=== PATIENT | female | born 1980 | race Caucasian/White ===

== ENCOUNTER 2017-07-27 02:07 | Emergency (ER) | payer BC ==
[2017-07-27 02:15] VITALS: TEMP 98.1
[2017-07-27] MEDS ORDERED: KETOROLAC 30 MG/ML 1 ML VIAL IVP STA (02:32)
[2017-07-27 02:42] LABS: Basophils # (A) 0.1 k/uL (0-0.2); Basophils % (A) 1 %; Eosinophils # (A) 0.2 k/uL (0-0.7); Eosinophils % (A) 2 %; HCT 42.8 % (34.0-46.0); HGB 15.2 gm/dL (11.4-16.0); Lymphocytes # (A) 2.6 k/uL (1.0-4.8); Lymphocytes % (A) 32 %; MCH 30.7 pg (25.0-35.0); MCHC 35.4 g/dL (31.0-37.0); MCV 86.7 fL (80.0-100.0); Mean Platelet Volume 6.7; Monocytes # (A) 0.5 k/uL (0-1.0); Monocytes % (A) 6 %; Neutrophils # (A) 4.6 k/uL (1.3-7.7); Neutrophils % (A) 56 %; Platelet Count 361 k/uL (150-450); RBC 4.94 m/uL (3.80-5.40); RDW 11.9 % (11.5-15.5); WBC 8.2 k/uL (3.8-10.6)
[2017-07-27 02:50] LABS: ALT 19 U/L (9-52); AST 26 U/L (14-36); Albumin 4.4 g/dL (3.5-5.0); Alkaline Phosphatase 84 U/L (38-126); Anion Gap 13 mmol/L; Blood Urea Nitrogen 14 mg/dL (7-17); Calcium 10.3 mg/dL (8.4-10.2); Carbon Dioxide 23 mmol/L (22-30); Chloride 104 mmol/L (98-107); Glucose 124 mg/dL (74-99); Magnesium 1.8 mg/dL (1.6-2.3); Potassium 3.9 mmol/L (3.5-5.1); Sodium 140 mmol/L (137-145); Total Bilirubin 0.4 mg/dL (0.2-1.3); Total Protein 7.6 g/dL (6.3-8.2)
--- NOTE | 2017-07-27 03:53 | XR ---
EXAM: XR Chest, 1 View CLINICAL HISTORY: ITS.REASON XR Reason: chest pain TECHNIQUE: Frontal view of the chest. COMPARISON: No relevant prior studies available. FINDINGS: Lungs: Unremarkable. No consolidation. Pleural space: Unremarkable. No pneumothorax. Heart: Unremarkable. No cardiomegaly. Mediastinum: Unremarkable. Bones/joints: Unremarkable. IMPRESSION: No lobar consolidation or pulmonary edema.
[2017-07-27] MEDS ORDERED: MAG HYDROX/AL HYDROX/SIMETH 30 ML, HYOSCYAMINE ELIXIR 10 ML, CIMETIDINE HCL 300 MG, LID... PO STA ×4 (04:01)
--- NOTE | 2017-07-27 06:50 | ED ---
Chest Pain HPI - General Chief Complaint: Chest Pain Stated Complaint: Chest Pain/ SOB Time Seen by Provider: 07/27/17 02:22 Source: patient, family Mode of arrival: ambulatory Limitations: no limitations - History of Present Illness MD Complaint: chest pain -: hour(s) Onset: during rest Pain Location: substernal Pain Radiation: back Severity: severe Quality: tightness, aching Consistency: constant Improves With: nothing Worsens With: nothing Context: other (Stress) Treatments Prior to Arrival: none - Related Data Home Medications Medication Instructions Recorded Confirmed No Known Home Medications [No 07/27/17 07/27/17 Known Home Medications] Allergies Allergy/AdvReac Type Severity Reaction Status Date / Time No Known Allergies Allergy Verified 07/27/17 02:14 Review of Systems ROS Statement: Those systems with pertinent positive or pertinent negative responses have been documented in the HPI. ROS Other: All systems not noted in ROS Statement are negative. Constitutional: Denies: fever, chills, weakness Respiratory: Denies: cough, dyspnea Cardiovascular: Reports: chest pain, palpitations. Denies: syncope Gastrointestinal: Denies: abdominal pain, vomiting, diarrhea Genitourinary: Denies: dysuria Musculoskeletal: Reports: as per HPI, back pain Skin: Denies: rash Neurological: Denies: headache, weakness, numbness Psychiatric: Reports: anxiety EKG Findings - EKG Results: EKG: interpreted by LEVI, sinus rhythm (Rate approximately 111 bpm), normal axis , normal QRS, normal ST/T EKG shows: tachycardia Past Medical History Past Medical History: No Reported History History of Any Multi-Drug Resistant Organisms: None Reported Past Surgical History: No Surgical Hx Reported Past Psychological History: No Psychological Hx Reported Smoking Status: Never smoker Past Alcohol Use History: None Reported Past Drug Use History: None Reported General Exam Limitations: no limitations General appearance: alert, anxious Head exam: Present: atraumatic, normocephalic Eye exam: Present: normal appearance. Absent: scleral icterus, conjunctival injection Respiratory exam: Present: normal lung sounds bilaterally. Absent: respiratory distress, wheezes, rales, rhonchi, stridor Cardiovascular Exam: Present: normal rhythm, tachycardia (Rate 108 at my exam), normal heart sounds. Absent: systolic murmur, diastolic murmur, rubs, gallop GI/Abdominal exam: Present: soft. Absent: distended, tenderness, guarding, rebound, mass Extremities exam: Present: normal inspection, normal capillary refill. Absent: pedal edema, calf tenderness Back exam: Present: normal inspection. Absent: CVA tenderness (R), CVA tenderness (L) Neurological exam: Present: alert Psychiatric exam: Present: anxious Skin exam: Present: warm, dry, intact, normal color. Absent: rash Course Vital Signs 07/27/17 07/27/17 07/27/17 02:10 03:34 04:40 Temperature 98.1 F Pulse Rate 122 H 84 86 Respiratory 20 16 16 Rate Blood Pressure 153/95 134/75 133/79 O2 Sat by Pulse 88 L 98 98 Oximetry 07/27/17 06:57 Temperature Pulse Rate 83 Respiratory 16 Rate Blood Pressure 131/80 O2 Sat by Pulse 98 Oximetry Disposition Clinical Impression: Chest pain Disposition: HOME SELF-CARE Condition: Good Instructions: Chest Pain (ED) Referrals: Dragan Boudreaux MD [Primary Care Provider] - 1-2 days
[2017-07-27 07:55] VITALS: BP 124/80; PULSE 87; RESP 18
== END 2017-07-27 07:54 | disposition home or self-care (01) ==
LOC: EC 02:07
DX: R07.89 Other chest pain (principal); F41.9 Anxiety disorder, unspecified; R00.0 Tachycardia, unspecified; F43.9 Reaction to severe stress, unspecified; M54.9 Dorsalgia, unspecified
CPT/HCPCS: 36415; 93005; 85379; 80053; 83735; 84484; 85025; 71045; 99285; 96374; J1885

== ENCOUNTER 2019-03-27 15:34 | Emergency (ER) | payer BC ==
[2019-03-27 15:42] VITALS: RESP 18
[2019-03-27] MEDS ORDERED: SODIUM CHLORIDE 0.9% 1,000 ML IV STA ×2 (15:47)
[2019-03-27] MEDS ORDERED: PANTOPRAZOLE 40 MG/10 ML VIAL IVP STA (15:47)
[2019-03-27] MEDS ORDERED: ONDANSETRON 4 MG/2 ML VIAL IVP STA (15:58)
[2019-03-27] MEDS ORDERED: HYDROmorphone 1 MG/ML 1 ML SYRINGE IVP STA (15:58)
[2019-03-27] MEDS ORDERED: KETOROLAC 30 MG/ML 1 ML VIAL IVP STA (16:01)
[2019-03-27 16:12] LABS: Basophils # (A) 0.1 k/uL (0-0.2); Basophils % (A) 1 %; Eosinophils # (A) 0.2 k/uL (0-0.7); Eosinophils % (A) 2 %; HCT 39.8 % (34.0-46.0); HGB 13.6 gm/dL (11.4-16.0); Lymphocytes # (A) 1.6 k/uL (1.0-4.8); Lymphocytes % (A) 20 %; MCH 30.3 pg (25.0-35.0); MCHC 34.2 g/dL (31.0-37.0); MCV 88.5 fL (80.0-100.0); Mean Platelet Volume 6.1; Monocytes # (A) 0.4 k/uL (0-1.0); Monocytes % (A) 5 %; Neutrophils # (A) 5.2 k/uL (1.3-7.7); Neutrophils % (A) 68 %; Platelet Count 465 k/uL (150-450); RBC 4.49 m/uL (3.80-5.40); RDW 11.8 % (11.5-15.5); WBC 7.7 k/uL (3.8-10.6)
--- NOTE | 2019-03-27 16:18 | ED ---
Abdominal Pain HPI - General Chief Complaint: Abdominal Pain Stated Complaint: Flank pain Time Seen by Provider: 03/27/19 15:47 Source: patient, RN notes reviewed, old records reviewed Mode of arrival: ambulatory Limitations: no limitations - History of Present Illness Initial Comments: This patient's a 38-year-old female. She presents today for evaluation for concern for flank pain. Patient reports the symptoms started sharp pain, and it happened 3 times today. She states it seems to be in her right flank and right upper abdomen. Patient denies any fevers or chills. She denies any changes in urination or bowel habits. Patient states the pain seemed to occur 2 Hours after eating. states she had an episode of pain like this a year ago but was told at that time is gastritis. - Related Data Home Medications Medication Instructions Recorded Confirmed No Known Home Medications 07/27/17 07/27/17 Allergies Allergy/AdvReac Type Severity Reaction Status Date / Time No Known Allergies Allergy Verified 03/27/19 15:38 Review of Systems ROS Statement: Those systems with pertinent positive or pertinent negative responses have been documented in the HPI. ROS Other: All systems not noted in ROS Statement are negative. Past Medical History Past Medical History: No Reported History Additional Past Medical History / Comment(s): gastritis, ovarian cysts History of Any Multi-Drug Resistant Organisms: None Reported Past Surgical History: No Surgical Hx Reported Additional Past Surgical History / Comment(s): EGD, uterine wall and ovarian cyst removal Past Psychological History: No Psychological Hx Reported Smoking Status: Never smoker Past Alcohol Use History: Occasional Past Drug Use History: None Reported General Exam - General Exam Comments Initial Comments: 38-year-old female. No significant distress. Limitations: no limitations General appearance: alert, in no apparent distress Head exam: Present: atraumatic, normocephalic, normal inspection Eye exam: Present: normal appearance, PERRL, EOMI. Absent: scleral icterus, conjunctival injection, periorbital swelling ENT exam: Present: normal exam, mucous membranes moist Neck exam: Present: normal inspection. Absent: tenderness, meningismus, lymphadenopathy Respiratory exam: Present: normal lung sounds bilaterally Cardiovascular Exam: Present: regular rate, normal rhythm, normal heart sounds. Absent: systolic murmur, diastolic murmur, rubs, gallop, clicks GI/Abdominal exam: Present: soft, tenderness (right upper quadrant tenderness), normal bowel sounds. Absent: distended, guarding, rebound, rigid Extremities exam: Present: normal inspection Back exam: Present: normal inspection Neurological exam: Present: alert, oriented X3, CN II-XII intact Psychiatric exam: Present: normal affect, normal mood Skin exam: Present: warm, dry, intact, normal color. Absent: rash Course Vital Signs 03/27/19 15:38 Temperature 97.4 F L Pulse Rate 90 Respiratory 18 Rate Blood Pressure 149/86 O2 Sat by Pulse 100 Oximetry - Reevaluation(s) Reevaluation #1: 03/27/19 17:40 is reevaluated and resting comfortably in bed. States her pain is diminishing. Medical Decision Making - Medical Decision Making 38-year-old female presents today for 3 episodes of sharp right upper quadrant abdominal pain with radiation towards her back. Patient was started on IV fluids labwork obtained. She is given Toradol and Zofran. Patient ran reevaluation she is resting comfortably in bed. Lab work was reviewed. There is a mildly elevated liver enzymes of an AST of 56 and ALT of 90. Bilirubin is within normal limits. Urinalysis shows no blood or signs of infection. Ultrasound of the gallbladder was completed and does show multiple stones, within the gallbladder and neck. No signs of dilated ducts or sonographic M urphy sign. Her white blood cell count is within normal limits and vital signs are stable. I discussed with the concern for patient's pain is related to biliary colic and she may have passed, bladder stones. I discussed that this could turn into infected gallbladder cholecystitis or choledocholithiasis. Patient on reevaluation states she is feeling better. She is concerned because she has an upcoming vacation in one week and wants to have this taken care of before then. Discussed that Patient can follow-up with her primary care doctor or return to emergency department she has any worsening pain that at that time Patient may need to have her gallbladder removed. Patient is agreeable to this plan and but close follow-up with primary care doctor and surgeon. - Lab Data Result diagrams: 03/27/19 15:54 03/27/19 15:54 Lab Results 03/27/19 03/27/19 03/27/19 Range/Units 15:54 15:54 15:54 WBC 7.7 (3.8-10.6) k/uL RBC 4.49 (3.80-5.40) m/uL Hgb 13.6 (11.4-16.0) gm/dL Hct 39.8 (34.0-46.0) % MCV 88.5 (80.0-100.0) fL MCH 30.3 (25.0-35.0) pg MCHC 34.2 (31.0-37.0) g/dL RDW 11.8 (11.5-15.5) % Plt Count 465 H (150-450) k/uL Neutrophils % 68 % Lymphocytes % 20 % Monocytes % 5 % Eosinophils % 2 % Basophils % 1 % Neutrophils # 5.2 (1.3-7.7) k/uL Lymphocytes # 1.6 (1.0-4.8) k/uL Monocytes # 0.4 (0-1.0) k/uL Eosinophils # 0.2 (0-0.7) k/uL Basophils # 0.1 (0-0.2) k/uL PT (9.0-12.0) sec INR (<1.2) APTT (22.0-30.0) sec Sodium 137 (137-145) mmol/L Potassium 4.1 (3.5-5.1) mmol/L Chloride 103 (98-107) mmol/L Carbon Dioxide 26 (22-30) mmol/L Anion Gap 8 mmol/L BUN 14 (7-17) mg/dL Creatinine 0.62 (0.52-1.04) mg/dL Est GFR (CKD-EPI)AfAm >90 (>60 ml/min/1.73 sqM) Est GFR (CKD-EPI)NonAf >90 (>60 ml/min/1.73 sqM) Glucose 116 H (74-99) mg/dL Plasma Lactic Acid Richard 1.3 (0.7-2.0) mmol/L Calcium 9.4 (8.4-10.2) mg/dL Total Bilirubin 0.5 (0.2-1.3) mg/dL AST 56 H (14-36) U/L ALT 93 H (9-52) U/L Alkaline Phosphatase 102 (38-126) U/L Total Protein 7.8 (6.3-8.2) g/dL Albumin 4.3 (3.5-5.0) g/dL Amylase 47 (30-110) U/L Lipase 154 (23-300) U/L Urine Color Urine Appearance (Clear) Urine pH (5.0-8.0) Ur Specific [place] (1.001-1.035) Urine Protein (Negative) Urine Glucose (UA) (Negative) Urine Ketones (Negative) Urine Blood (Negative) Urine Nitrite (Negative) Urine Bilirubin (Negative) Urine Urobilinogen (<2.0) mg/dL Ur Leukocyte Esterase (Negative) Urine RBC (0-5) /hpf Urine WBC (0-5) /hpf Ur Squamous Epith Cells (0-4) /hpf Urine Mucus (None) /hpf Urine HCG, Qual (Not Detectd) 03/27/19 03/27/19 03/27/19 Range/Units 15:54 15:54 15:54 WBC (3.8-10.6) k/uL RBC (3.80-5.40) m/uL Hgb (11.4-16.0) gm/dL Hct (34.0-46.0) % MCV (80.0-100.0) fL MCH (25.0-35.0) pg MCHC (31.0-37.0) g/dL RDW (11.5-15.5) % Plt Count (150-450) k/uL Neutrophils % % Lymphocytes % % Monocytes % % Eosinophils % % Basophils % % Neutrophils # (1.3-7.7) k/uL Lymphocytes # (1.0-4.8) k/uL Monocytes # (0-1.0) k/uL Eosinophils # (0-0.7) k/uL Basophils # (0-0.2) k/uL PT 10.3 (9.0-12.0) sec INR 1.0 (<1.2) APTT 24.5 (22.0-30.0) sec Sodium (137-145) mmol/L Potassium (3.5-5.1) mmol/L Chloride (98-107) mmol/L Carbon Dioxide (22-30) mmol/L Anion Gap mmol/L BUN (7-17) mg/dL Creatinine (0.52-1.04) mg/dL Est GFR (CKD-EPI)AfAm (>60 ml/min/1.73 sqM) Est GFR (CKD-EPI)NonAf (>60 ml/min/1.73 sqM) Glucose (74-99) mg/dL Plasma Lactic Acid Richard (0.7-2.0) mmol/L Calcium (8.4-10.2) mg/dL Total Bilirubin (0.2-1.3) mg/dL AST (14-36) U/L ALT (9-52) U/L Alkaline Phosphatase (38-126) U/L Total Protein (6.3-8.2) g/dL Albumin (3.5-5.0) g/dL Amylase (30-110) U/L Lipase (23-300) U/L Urine Color Yellow Urine Appearance Cloudy H (Clear) Urine pH 8.5 H (5.0-8.0) Ur Specific [place] 1.020 (1.001-1.035) Urine Protein Trace H (Negative) Urine Glucose (UA) Negative (Negative) Urine Ketones 1+ H (Negative) Urine Blood Negative (Negative) Urine Nitrite Negative (Negative) Urine Bilirubin Negative (Negative) Urine Urobilinogen 3.0 (<2.0) mg/dL Ur Leukocyte Esterase Negative (Negative) Urine RBC 1 (0-5) /hpf Urine WBC 6 H (0-5) /hpf Ur Squamous Epith Cells 5 H (0-4) /hpf Urine Mucus Rare H (None) /hpf Urine HCG, Qual Not Detected (Not Detectd) 03/27/19 16:19 EKG shows normal sinus rhythm with sinus arrhythmia, otherwise normal EKG noted. Ventricular rate of 76 bpm. Intervals 118 ms. QRS duration is 80 ms. QT QTc is 398/447 ms. - Radiology Data Radiology results: report reviewed Multiple gallstones, no dilated ducts. No focal liver defect. No evidence of renal obstruction. Gallbladder wall is 0.3 cm. Common bile duct is 0.3 cm. No signs of sonographic Parker sign. Ultrasound shows multiple gallstones. No dilated ducts. No focal liver defect. No evidence of renal obstruction. Her gallbladder ultrasound does show full of gallstones dropped the gallbladder and in the neck. ABG shows nonobstructive bowel gas pattern. Disposition Clinical Impression: Gallstones, Biliary colic Disposition: HOME SELF-CARE Condition: Good Instructions (If sedation given, give patient instructions): Biliary Colic (ED) Additional Instructions: Patient is advised to probably to return to the emergency department if there is any further worsening pain or fevers. Patient should follow up promptly with primary care doctor next week for rechecking of liver enzymes and also following up with surgeon for possible cholecystectomy in the future. If there is any questions about returning pain do not hesitate to return again to the emergency room. Is patient prescribed a controlled substance at d/c from ED?: No Referrals: Dragan Boudreaux MD [Primary Care Provider] - 1-2 days Onel Leigh MD [STAFF PHYSICIAN] - 1-2 days Moni Nichols MD [STAFF PHYSICIAN] - 1-2 days Madhu King MD [Medical Doctor] - 1-2 days Time of Disposition: 17:43
[2019-03-27 16:19] LABS: Appearance,Urine Cloudy (Clear); Bilirubin,Urine Negative (Negative); Blood,Urine Negative (Negative); Color,Urine Yellow; Glucose,Urine (UA) Negative (Negative); Ketones,Urine 1+ (Negative); Leukocyte Esterase,Urine Negative (Negative); Mucus,Urine Rare /hpf; Nitrite,Urine Negative (Negative); PH, Urine 8.5 (5.0-8.0); Protein,Urine Trace (Negative); RBC,Urine 1 /hpf (0-5); Squamous Epithelial Cell,Urine 5 /hpf (0-4)
[2019-03-27 16:20] LABS: ALT 93 U/L (9-52); AST 56 U/L (14-36); African American GFR (CKD) >90 (>60 ml/min/1.73 sqM); Albumin 4.3 g/dL (3.5-5.0); Alkaline Phosphatase 102 U/L (38-126); Amylase 47 U/L (30-110); Anion Gap 8 mmol/L; Blood Urea Nitrogen 14 mg/dL (7-17); Calcium 9.4 mg/dL (8.4-10.2); Carbon Dioxide 26 mmol/L (22-30); Chloride 103 mmol/L (98-107); Glucose 116 mg/dL (74-99); Partial Thromboplastin Time 24.5 sec (22.0-30.0); Potassium 4.1 mmol/L (3.5-5.1); Prothrombin Time 10.3 sec (9.0-12.0); Sodium 137 mmol/L (137-145); Total Bilirubin 0.5 mg/dL (0.2-1.3); Total Protein 7.8 g/dL (6.3-8.2)
--- NOTE | 2019-03-27 17:10 | US ---
EXAMINATION TYPE: US gallbladder DATE OF EXAM: 03/27/2019 COMPARISON: NONE CLINICAL HISTORY: RUQ pain. Episodes of RUQ and back pain ; ate potato chips at 12:30; prior history of gastritis EXAM MEASUREMENTS: Liver Length: 14.4 cm Gallbladder Wall: 0.3 cm CBD: 0.3 cm Right Kidney: 10.8 x 5.1 x 4.5 cm Pancreas: hyperechoic but homogeneous Liver: wnl Gallbladder: full of shadowing gallstones throughout gallbladder and in neck. Evidence for sonographic Parker's sign: no CBD: wnl Right Kidney: wnl IMPRESSION: Multiple gallstones. No dilated ducts. No focal liver defect. No evidence of renal obstru ction.
--- NOTE | 2019-03-27 17:29 | XR ---
EXAMINATION TYPE: XR KUB DATE OF EXAM: 03/27/2019 COMPARISON: NONE HISTORY: Severe right upper quadrant pain TECHNIQUE: 2 views upright FINDINGS: There is no sign of intestinal obstruction or pneumoperitoneum. Fecal pattern is normal. Th ere is no sign of a mass. There are no pathologic calcifications over the kidneys. IMPRESSION: Nonacute abdomen.
[2019-03-27 18:06] VITALS: BP 135/80; PULSE 72; TEMP 98.1
== END 2019-03-27 18:03 | disposition home or self-care (01) ==
LOC: EC 15:34
DX: K80.70 Calculus of gallbladder and bile duct without cholecystitis without obstruction (principal); R74.0 Nonspecific elevation of levels of transaminase and lactic acid dehydrogenase [LDH]; Z53.8 Procedure and treatment not carried out for other reasons
CPT/HCPCS: 36415; 93005; 80053; 82150; 83605; 83690; 85025; 85610; 85730; 81001; 81025; 74018; 76705; 99285; 96374; 96375 ×2; 96361 ×2; J2405; J1885; C9113

== ENCOUNTER 2019-04-19 18:27 | Observation (INO) | payer BC ==
[2019-04-19] MEDS ORDERED: KETOROLAC 30 MG/ML 1 ML VIAL IVP STA (18:53)
[2019-04-19] MEDS ORDERED: ONDANSETRON 4 MG/2 ML VIAL IVP STA (18:53)
[2019-04-19] MEDS ORDERED: SODIUM CHLORIDE 0.9% 2,000 ML IV STA (18:53)
[2019-04-19 19:22] LABS: Basophils # (A) 0.1 k/uL (0-0.2); Basophils % (A) 1 %; Eosinophils # (A) 0.2 k/uL (0-0.7); Eosinophils % (A) 3 %; HCT 41.1 % (34.0-46.0); HGB 13.9 gm/dL (11.4-16.0); Lymphocytes # (A) 2.5 k/uL (1.0-4.8); Lymphocytes % (A) 26 %; MCH 30.1 pg (25.0-35.0); MCHC 33.7 g/dL (31.0-37.0); MCV 89.3 fL (80.0-100.0); Mean Platelet Volume 7.7; Monocytes # (A) 0.4 k/uL (0-1.0); Monocytes % (A) 4 %; Neutrophils # (A) 6.1 k/uL (1.3-7.7); Neutrophils % (A) 64 %; Platelet Count 376 k/uL (150-450); RDW 12.5 % (11.5-15.5); WBC 9.6 k/uL (3.8-10.6)
[2019-04-19 19:31] LABS: Appearance,Urine Clear (Clear); Bilirubin,Urine Negative (Negative); Blood,Urine Negative (Negative); Color,Urine Light Yellow; Glucose,Urine (UA) Negative (Negative); Ketones,Urine 1+ (Negative); Leukocyte Esterase,Urine Negative (Negative); Nitrite,Urine Negative (Negative); Protein,Urine Negative (Negative); Specific Gravity,Urine 1.009 (1.001-1.035); Urobilinogen,Urine <2.0 mg/dL (<2.0)
--- NOTE | 2019-04-19 19:31 | ED ---
Abdominal Pain HPI - General Source: patient, RN notes reviewed Mode of arrival: ambulatory Limitations: no limitations <Tristin Lindsay - Last Filed: 04/19/19 21:40> <Candice Quintero - Last Filed: 04/19/19 23:19> - General Chief Complaint: Abdominal Pain Stated Complaint: RUQ Abd pain, Back pain Time Seen by Provider: 04/19/19 18:44 - History of Present Illness Initial Comments: 38-year-old female presents emergency Department with chief complaint of right upper quadrant abdominal pain. Patient states that she has known gallstones is scheduled for surgery with Dr. Lutz on May 15. Patient states that she started on some discomfort earlier today states that had worsened and now is located in her right flank right upper quadrant consistent with her gallbladder attacks. Patient states that she did drink some wine ate some turkey earlier today. She states that she has been low-fat diet trying to keep her symptoms under control. Patient states at this point the pain is unbearable. Patient d enies any fevers or chills nausea and no vomiting, diarrhea constipation she did admit that she had a light colored stool today. (Tristin Lindsay) - Related Data Home Medications Medication Instructions Recorded Confirmed No Known Home Medications 07/27/17 04/19/19 Allergies Allergy/AdvReac Type Severity Reaction Status Date / Time No Known Allergies Allergy Verified 04/19/19 18:39 Review of Systems ROS Other: All systems not noted in ROS Statement are negative. <Tristin Lindsay - Last Filed: 04/19/19 21:40> ROS Other: All systems not noted in ROS Statement are negative. <Candice Quintero - Last Filed: 04/19/19 23:19> ROS Statement: Those systems with pertinent positive or pertinent negative responses have been documented in the HPI. Past Medical History Past Medical History: No Reported History Additional Past Medical History / Comment(s): gastritis, ovarian cysts History of Any Multi-Drug Resistant Organisms: None Reported Past Surgical History: No Surgical Hx Reported Additional Past Surgical History / Comment(s): EGD, uterine wall and ovarian cyst removal Past Psychological History: No Psychological Hx Reported Smoking Status: Never smoker Past Alcohol Use History: Occasional Past Drug Use History: None Reported <Tristin Lindsay - Last Filed: 04/19/19 21:40> - Past Family History Mother Additional Family Medical History / Comment(s): TIAs Father Family Medical History: No Reported History <Candice Quintero - Last Filed: 04/19/19 23:19> General Exam Limitations: no limitations General appearance: alert, in no apparent distress Head exam: Present: atraumatic, normocephalic, normal inspection Neck exam: Present: normal inspection, full ROM. Absent: tenderness, meningismus, lymphadenopathy Respiratory exam: Present: normal lung sounds bilaterally. Absent: respiratory distress, wheezes, rales, rhonchi, stridor Cardiovascular Exam: Present: regular rate, normal rhythm, normal heart sounds. Absent: systolic murmur, diastolic murmur, rubs, gallop, clicks GI/Abdominal exam: Present: soft, tenderness (Moderate right upper quadrant), normal bowel sounds. Absent: distended, guarding, rebound, rigid Back exam: Present: CVA tenderness (R). Absent: CVA tenderness (L) Neurological exam: Present: alert, oriented X3, CN II-XII intact Skin exam: Present: warm, dry, intact, normal color. Absent: rash <Tristin Lindsay - Last Filed: 04/19/19 21:40> Course Vital Signs 04/19/19 04/19/19 18:40 21:38 Temperature 98 F Pulse Rate 93 84 Respiratory 18 18 Rate Blood Pressure 119/81 120/79 O2 Sat by Pulse 96 98 Oximetry Medical Decision Making - Lab Data Result diagrams: 04/19/19 19:00 04/19/19 19:00 <Tristin Lindsay - Last Filed: 04/19/19 21:40> - Lab Data Result diagrams: 04/19/19 19:00 04/19/19 19:00 <Candice Quintero - Last Filed: 04/19/19 23:19> - Medical Decision Making Patient had persistent pain. Patient will be admitted to Dr. Nichols. Labs unremarkable at this time. (Tristin Lindsay) I personally saw and evaluated the patient, patient with persistent RUQ abdominal pain despite 2 doses of Dilaudid. Patient care was discussed with Dr. Nichols who accepts the admission to her service. Admission orders were placed. (Candice Qunitero) - Lab Data Lab Results 04/19/19 04/19/19 04/19/19 Range/Units 19:00 19:00 19:00 WBC 9.6 (3.8-10.6) k/uL RBC 4.60 (3.80-5.40) m/uL Hgb 13.9 (11.4-16.0) gm/dL Hct 41.1 (34.0-46.0) % MCV 89.3 (80.0-100.0) fL MCH 30.1 (25.0-35.0) pg MCHC 33.7 (31.0-37.0) g/dL RDW 12.5 (11.5-15.5) % Plt Count 376 (150-450) k/uL Neutrophils % 64 % Lymphocytes % 26 % Monocytes % 4 % Eosinophils % 3 % Basophils % 1 % Neutrophils # 6.1 (1.3-7.7) k/uL Lymphocytes # 2.5 (1.0-4.8) k/uL Monocytes # 0.4 (0-1.0) k/uL Eosinophils # 0.2 (0-0.7) k/uL Basophils # 0.1 (0-0.2) k/uL Sodium 142 (137-145) mmol/L Potassium 4.0 (3.5-5.1) mmol/L Chloride 108 H (98-107) mmol/L Carbon Dioxide 22 (22-30) mmol/L Anion Gap 12 mmol/L BUN 15 (7-17) mg/dL Creatinine 0.97 (0.52-1.04) mg/dL Est GFR (CKD-EPI)AfAm 87 (>60 ml/min/1.73 sqM) Est GFR (CKD-EPI)NonAf 75 (>60 ml/min/1.73 sqM) Glucose 84 (74-99) mg/dL Calcium 10.1 (8.4-10.2) mg/dL Total Bilirubin 0.4 (0.2-1.3) mg/dL AST 24 (14-36) U/L ALT 29 (9-52) U/L Alkaline Phosphatase 77 (38-126) U/L Total Protein 7.9 (6.3-8.2) g/dL Albumin 4.6 (3.5-5.0) g/dL Amylase 58 (30-110) U/L Lipase 156 (23-300) U/L Urine Color Light Yellow Urine Appearance Clear (Clear) Urine pH 8.0 (5.0-8.0) Ur Specific [place] 1.009 (1.001-1.035) Urine Protein Negative (Negative) Urine Glucose (UA) Negative (Negative) Urine Ketones 1+ H (Negative) Urine Blood Negative (Negative) Urine Nitrite Negative (Negative) Urine Bilirubin Negative (Negative) Urine Urobilinogen <2.0 (<2.0) mg/dL Ur Leukocyte Esterase Negative (Negative) Urine HCG, Qual (Not Detectd) 04/19/19 Range/Units 19:00 WBC (3.8-10.6) k/uL RBC (3.80-5.40) m/uL Hgb (11.4-16.0) gm/dL Hct (34.0-46.0) % MCV (80.0-100.0) fL MCH (25.0-35.0) pg MCHC (31.0-37.0) g/dL RDW (11.5-15.5) % Plt Count (150-450) k/uL Neutrophils % % Lymphocytes % % Monocytes % % Eosinophils % % Basophils % % Neutrophils # (1.3-7.7) k/uL Lymphocytes # (1.0-4.8) k/uL Monocytes # (0-1.0) k/uL Eosinophils # (0-0.7) k/uL Basophils # (0-0.2) k/uL Sodium (137-145) mmol/L Potassium (3.5-5.1) mmol/L Chloride (98-107) mmol/L Carbon Dioxide (22-30) mmol/L Anion Gap mmol/L BUN (7-17) mg/dL Creatinine (0.52-1.04) mg/dL Est GFR (CKD-EPI)AfAm (>60 ml/min/1.73 sqM) Est GFR (CKD-EPI)NonAf (>60 ml/min/1.73 sqM) Glucose (74-99) mg/dL Calcium (8.4-10.2) mg/dL Total Bilirubin (0.2-1.3) mg/dL AST (14-36) U/L ALT (9-52) U/L Alkaline Phosphatase (38-126) U/L Total Protein (6.3-8.2) g/dL Albumin (3.5-5.0) g/dL Amylase (30-110) U/L Lipase (23-300) U/L Urine Color Urine Appearance (Clear) Urine pH (5.0-8.0) Ur Specific [place] (1.001-1.035) Urine Protein (Negative) Urine Glucose (UA) (Negative) Urine Ketones (Negative) Urine Blood (Negative) Urine Nitrite (Negative) Urine Bilirubin (Negative) Urine Urobilinogen (<2.0) mg/dL Ur Leukocyte Esterase (Negative) Urine HCG, Qual Not Detected (Not Detectd) Disposition <Tristin Lindsay M - Last Filed: 04/19/19 21:40> Is patient prescribed a controlled substance at d/c from ED?: No <Candice Quintero - Last Filed: 04/19/19 23:19> Clinical Impression: Biliary colic, Gallstones, Intractable abdominal pain Disposition: ADMITTED IP TO THIS [facility] Condition: Fair
[2019-04-19 19:33] LABS: Albumin 4.6 g/dL (3.5-5.0); Calcium 10.1 mg/dL (8.4-10.2); Total Bilirubin 0.4 mg/dL (0.2-1.3); Total Protein 7.9 g/dL (6.3-8.2)
[2019-04-19] MEDS ORDERED: diphenhydrAMINE 50 MG/ML 1 ML VIAL IVP STA (19:49)
[2019-04-19] MEDS ORDERED: METOCLOPRAMIDE 5 MG/ML 2 ML VIAL IVP STA (19:49)
[2019-04-19] MEDS ORDERED: HYDROmorphone 0.5 MG/0.5 ML SYRINGE IVP STA ×2 (19:49→21:39)
[2019-04-19] MEDS ORDERED: MORPHINE SULFATE 4 MG/ML SYRINGE IV PRN (21:34)
[2019-04-19] MEDS ORDERED: NALOXONE 0.4 MG/ML 1 ML VIAL IV PRN (21:34)
[2019-04-19] MEDS ORDERED: ONDANSETRON 4 MG/2 ML VIAL IVP PRN (21:34)
[2019-04-19] MEDS ORDERED: ACETAMINOPHEN TAB 325 MG TAB PO PRN (21:35)
[2019-04-19] MEDS ORDERED: ACETAMINOPHEN IV (For NPO) 1,000 MG in EMPTY BAG 1 BAG IVPB ONE (21:35)
[2019-04-19] MEDS: D5-0.45% NACL WITH KCL 20MEQ/L 1,000 ML IV SCH (22:42)
[2019-04-20] MEDS: SODIUM CHLORIDE 0.9% 1,000 ML IV SCH ×2 (00:11→23:04)
[2019-04-20] MEDS: HYDROmorphone 0.5 MG/0.5 ML SYRINGE IVP PRN ×3 (06:18→12:02)
[2019-04-20] MEDS: D5-0.45% NACL WITH KCL 20MEQ/L 1,000 ML IV SCH (07:28)
[2019-04-20] MEDS: ENOXAPARIN 30 MG/0.3 ML SYRINGE SQ SCH (09:02)
--- NOTE | 2019-04-20 11:34 | P.GSHP ---
History of Present Illness H&P Date: 04/20/19 CHIEF COMPLAINT: Cholecystitis HISTORY OF PRESENT ILLNESS: The patient is a 38-year-old female who presents with known history of gallstones. In fact, she reports yesterday having a egg white omelette and then had severe right upper back including abdominal pain. As a result of the persistent severity of the pain, she presents with cholecystitis intermission. PAST MEDICAL HISTORY: Please see list PAST SURGICAL HISTORY: Please see list MEDICATIONS: Please see list ALLERGIES: Please see list SOCIAL HISTORY: Please see list FAMILY HISTORY: Pertinent for gallbladder disease REVIEW OF ORGAN SYSTEMS: CONSTITUTIONAL: No reports of fevers or chills. HEENT: Denies any troubles with the vision or hearing. ENDOCRINE: No reports of hypothyroidism. No diabetes. RESPIRATORY: No recent pneumonias. CARDIOVASCULAR: Denies chest pain or palpitations GI: History of gastritis. History of choledocholithiasis MUSCULOSKELETAL: Has occasional joint pain including back pain. NEURO: No seizure disorders or headaches. No recent stroke. PSYCH: No depression or suicidal ideation. GENITOURINARY: No active blood in urine. No urinary hesitancy. HEMATOLOGIC: No personal or family history of DVTs or pulmonary emboli. SKIN: No skin cancer. PHYSICAL EXAM: VITAL SIGNS: Afebrile vital signs stable GENERAL: Well-developed pleasant in no acute distress. HEENT: No scleral icterus. Extraocular movements grossly intact. Moist buccal mucosa. NECK: Supple without lymphadenopathy. CHEST: Unlabored respirations. Equal bilateral excursions. CARDIOVASCULAR: Regular rate regular rhythm rhythm. Distal 2+ pulses. ABDOMEN: Soft, nondistended. Tender along the epigastrium and right upper quadrant. MUSCULOSKELETAL: No clubbing, cyanosis, or edema. NEURO: Cranial nerves II to XII within normal limits. No focal or lateralizing signs. PSYCH: Alert and oriented to person, place and time. SKIN: Well-perfused good skin turgor. ASSESSMENT: 1. Epigastric and right upper quadrant abdominal pain 2. Chronic cholecystitis 3. Symptomatic gallstones. 4. History of choledocholithiasis PLAN: 1. Will need a robotic cholecystectomy possible open. Benefits and risks were described. 2. Heparin for DVT prophylaxis 5000 units. 3. Antibiotic prophylaxis. Past Medical History Past Medical History: No Reported History Additional Past Medical History / Comment(s): gastritis, ovarian cysts History of Any Multi-Drug Resistant Organisms: None Reported Past Surgical History: No Surgical Hx Reported Additional Past Surgical History / Comment(s): EGD, uterine wall and ovarian cyst removal Past Anesthesia/Blood Transfusion Reactions: No Reported Reaction Past Psychological History: No Psychological Hx Reported Smoking Status: Never smoker Past Alcohol Use History: Occasional Past Drug Use History: None Reported - Past Family History Mother Additional Family Medical History / Comment(s): TIAs Father Family Medical History: No Reported History Medications and Allergies Home Medications Medication Instructions Recorded Confirmed Type Lo Loestrin Fe 1-10 1 tab PO DAILY 04/20/19 04/20/19 History Allergies Allergy/AdvReac Type Severity Reaction Status Date / Time No Known Allergies Allergy Verified 04/20/19 08:58 Surgical - Exam Vital Signs Temp Pulse Resp BP Pulse Ox 98 F 93 18 119/81 96 04/19/19 18:40 04/19/19 18:40 04/19/19 18:40 04/19/19 18:40 04/19/19 18:40 Results - Labs 04/19/19 19:00 04/19/19 19:00 Abnormal Lab Results - Last 24 Hours (Table) 04/19/19 04/19/19 Range/Units 19:00 19:00 Chloride 108 H (98-107) mmol/L Urine Ketones 1+ H (Negative) Diabetes panel 04/19/19 Range/Units 19:00 Sodium 142 (137-145) mmol/L Potassium 4.0 (3.5-5.1) mmol/L Chloride 108 H (98-107) mmol/L Carbon Dioxide 22 (22-30) mmol/L BUN 15 (7-17) mg/dL Creatinine 0.97 (0.52-1.04) mg/dL Glucose 84 (74-99) mg/dL Calcium 10.1 (8.4-10.2) mg/dL AST 24 (14-36) U/L ALT 29 (9-52) U/L Alkaline Phosphatase 77 (38-126) U/L Total Protein 7.9 (6.3-8.2) g/dL Albumin 4.6 (3.5-5.0) g/dL Calcium panel 04/19/19 Range/Units 19:00 Calcium 10.1 (8.4-10.2) mg/dL Albumin 4.6 (3.5-5.0) g/dL Pituitary panel 04/19/19 Range/Units 19:00 Sodium 142 (137-145) mmol/L Potassium 4.0 (3.5-5.1) mmol/L Chloride 108 H (98-107) mmol/L Carbon Dioxide 22 (22-30) mmol/L BUN 15 (7-17) mg/dL Creatinine 0.97 (0.52-1.04) mg/dL Glucose 84 (74-99) mg/dL Calcium 10.1 (8.4-10.2) mg/dL Adrenal panel 04/19/19 Range/Units 19:00 Sodium 142 (137-145) mmol/L Potassium 4.0 (3.5-5.1) mmol/L Chloride 108 H (98-107) mmol/L Carbon Dioxide 22 (22-30) mmol/L BUN 15 (7-17) mg/dL Creatinine 0.97 (0.52-1.04) mg/dL Glucose 84 (74-99) mg/dL Calcium 10.1 (8.4-10.2) mg/dL Total Bilirubin 0.4 (0.2-1.3) mg/dL AST 24 (14-36) U/L ALT 29 (9-52) U/L Alkaline Phosphatase 77 (38-126) U/L Total Protein 7.9 (6.3-8.2) g/dL Albumin 4.6 (3.5-5.0) g/dL Assessment and Plan (1) Cholecystitis Current Visit: Yes Status: Acute Code(s): K81.9 - CHOLECYSTITIS, UNSPECIFIED SNOMED Code(s): 41759380 (2) Choledocholithiasis with cholecystitis Current Visit: Yes Status: Acute Code(s): K80.40 - CALCULUS OF BILE DUCT W CHOLECYSTITIS, UNSP, W/O OBSTRUCTION SNOMED Code(s): 75474580 (3) Gallstones Current Visit: Yes Status: Acute Code(s): K80.20 - CALCULUS OF GALLBLADDER W/O CHOLECYSTITIS W/O OBSTRUCTION SNOMED Code(s): 555354019 (4) Intractable abdominal pain Current Visit: Yes Status: Acute Code(s): R10.9 - UNSPECIFIED ABDOMINAL PAIN SNOMED Code(s): 58649574
[2019-04-20] MEDS ORDERED: INDOCYANINE GREEN 25 MG VIAL IV ONE (12:00)
[2019-04-20] MEDS ORDERED: IV FLUID CONTINUATION 1,000 ML IV ONE (16:16)
[2019-04-20] MEDS ORDERED: LACTATED RINGERS 1,000 ML IV ONE ×2 (16:19→18:09)
[2019-04-20] MEDS ORDERED: SCOPOLAMINE 1.5MG/72HR PATCH TRANSDERM ONE (16:35)
[2019-04-20] MEDS ORDERED: fentaNYL (PF) 50 MCG/ML 2 ML AMP IVP ONE (16:46)
[2019-04-20] MEDS ORDERED: fentaNYL (PF) 50 MCG/ML 2 ML AMP ONE (17:02)
[2019-04-20] MEDS ORDERED: SUCCINYLCHOLINE CHLORIDE 100 MG/5 ML SYR IV ONE (17:02)
[2019-04-20] MEDS ORDERED: GLYCOPYRROLATE 0.2 MG/ML 2 ML VIAL ONE (17:02)
[2019-04-20] MEDS ORDERED: KETOROLAC 30 MG/ML 1 ML VIAL ONE (17:02)
[2019-04-20] MEDS ORDERED: HYDROmorphone (PF) 1 MG/ML ONE (17:02)
[2019-04-20] MEDS ORDERED: LIDOCAINE 1% INJ 10MG/ML (20 ML MDV) ONE (17:02)
[2019-04-20] MEDS ORDERED: ROCURONIUM BROMIDE 10 MG/ML 10 ML VIAL IV ONE (17:02)
[2019-04-20] MEDS ORDERED: PROPOFOL 10 MG/ML 20 ML VIAL IV ONE (17:02)
[2019-04-20] MEDS ORDERED: NEOSTIGMINE 1 MG/ML 10 ML VIAL ONE (17:02)
[2019-04-20] MEDS ORDERED: MIDAZOLAM 2 MG/2 ML VIAL ONE (17:02)
[2019-04-20] MEDS ORDERED: LIDOCAINE 1%-EPI 1:100,000 20 ML VIAL SQ ONE (17:35)
--- NOTE | 2019-04-20 18:23 | P.OP ---
Date of Procedure: 04/20/19 Description of Procedure: SURGEON: ALFONSO HURTADO MD PREOPERATIVE DIAGNOSES: 1. Acute on chronic cholecystitis with symptomatic gallstones 2. Right upper quadrant abdominal pain 3. Gastritis POSTOPERATIVE DIAGNOSES: 1. Acute cholecystitis due to cystic duct obstruction from gallstones 2. Right upper quadrant abdominal pain 3. Gastritis OPERATION: Robotic-assisted da Iris Xi laparoscopic cholecystectomy, multiport with FIREFLY ESTIMATED BLOOD LOSS: 5 mL. SPECIMENS REMOVED: Gallbladder. COMPLICATIONS: None. OPERATIVE FINDINGS: 1. Hypoplastic, diminutive and desiccated gallbladder 2. Chronic cholecystitis with probable gallstone 3. Console time 11 minutes INDICATIONS: The patient is a 38-year-old female who presents with cholelcystitis. Surgical intervention with a laparoscopic cholecystectomy was described at length including injury to the biliary tree, bleeding, infection, need for further surgery. Informed consent was obtained. Robotic assisted laparoscopic approach was described. Benefits and risks of the procedure including but not limited to bleeding, infection, injury to the biliary tree was described. Informed consent was obtained. DESCRIPTION OF PROCEDURE: Patient was brought to the operating room, placed in supine position. After general induction, the abdomen had been prepped and draped in standard sterile fashion. The robotic da Iris XI system was primed. After a timeout protocol was performed, the patient had been prepped and draped in standard sterile fashion. The patient was injected with indocyanine green. A 5 mm 0 degrees laparoscopic trocar entry was performed along the left upper quadrant. The abdomen insufflated to 15 mmHg pressure which was tolerated well. Diagnostic laparoscopy demonstrated no injury to bowel viscera or mesentery. The liver surface was unremarkable. Next, two 8 mm robotic ports were placed along the right upper abdomen. The camera 8-mm port was maintained along the epigastrium. Another 8 mm port was placed along the left upper abdominal wall after exchanging the 5 mm port. Please note that the ports were placed at least 10 to 15 cm away from the target anatomy of the gallbladder. The robot was docked along the left lateral abdomen. The patient was repositioned in reverse Trendelenburg position. Using a grasper for arm 3, a grasper for arm 4, including hook cautery for arm 1, the robotic system was docked and primed as described. Instruments were interchanged by the assistant professor sculpture including hook cautery, Bovie cautery and clip appliers. I had sat at the console. The gallbladder fundus was retracted over the dome of the liver. Initial attention was brought to the infundibulum which was gently retracted in the inferior lateral approach. Using a grasper, the cystic duct including the cystic artery was carefully skeletonized along the cystic duct. FIREFLY was used to identify cystic structures and common bile duct. The common bile duct was identified however complete obstruction of the gallbladder was confirmed as the cystic duct and the entire gallbladder was not visualized despite indocyanine green. These diagnostic features are consistent with acute cholecystitis. A critical view of safety was obtained. Large PLASTIC clips were used throughout the entire case. Using a clip vmware consultant 2 clips were placed proximally, and 1 clip was placed between the infundibulum and cystic duct and divided using cautery. Next, the cystic artery was similarly clipped and cauterized. Electro-Bovie cautery was used to remove the gallbladder from the hepatic fossa. Hemostasis was checked and found to be adequate. The robot was undocked. I re-scrubbed into the case. Using a 10 mm Endo Catch bag via the left upper quadrant incision, the specimen was removed from the abdominal cavity. All pneumoperitoneum instruments were evacuated from the abdominal cavity. The incisions were reapproximated using 4-0 Monocryl in an interrupted subcuticular fashion. Fascial defects were less than 8 mm in size. Please note along the trocar sites, local anesthetic was placed as a field block prior to insertion of all instruments. Liquid glue was applied to the skin. At the end of the procedure needle, sponge, and instrument count had been verified correct by the surgical scrub technologist. The patient was transferred to postanesthesia care unit in stable condition. Intraoperative films were shared with the patient's family who were very pleased with the level of care.
[2019-04-20] MEDS ORDERED: HYDROmorphone 0.5 MG/0.5 ML SYRINGE IVP ONE (18:43)
[2019-04-20] MEDS ORDERED: ONDANSETRON 4 MG/2 ML VIAL IVP ONE (19:07)
[2019-04-20] MEDS: KETOROLAC 30 MG/ML 1 ML VIAL IVP SCH (19:41)
[2019-04-20 19:53] VITALS: TEMP 98.1
[2019-04-21] MEDS: KETOROLAC 30 MG/ML 1 ML VIAL IVP SCH ×2 (00:40→05:06)
[2019-04-21] MEDS: D5-0.45% NACL WITH KCL 20MEQ/L 1,000 ML IV SCH (00:45)
[2019-04-21 01:22] VITALS: BP 107/64; PULSE 77; RESP 18
[2019-04-21] MEDS: SODIUM CHLORIDE 0.9% 1,000 ML IV SCH (03:29)
[2019-04-21] MEDS: ENOXAPARIN 30 MG/0.3 ML SYRINGE SQ SCH (07:28)
--- NOTE | 2019-04-21 12:41 | P.DS ---
<Umm De Jesus - Last Filed: 04/21/19 12:40> Providers Expected date of discharge: 04/21/19 Hospital Course: 38-year-old female who underwent robotic-assisted laparoscopic cholecystectomy with Dr. Nichols on 04/20/2019. Patient is doing well postoperatively without any immediate complications. Vital signs have been stable. Pain is controlled on oral medications. She is tolerating diet without nausea or vomiting. She is stable for discharge home today. Please see EMR for further hospital course details. Discharge diagnosis 1. Acute cholecystitis due to cystic duct obstruction from gallstones 2. Right upper quadrant abdominal pain 3. Gastritis Nurse practitioner note has been reviewed by physician. Signing provider agrees with the documented findings, assessment, and plan of care. Patient Condition at Discharge: Stable Plan - Discharge Summary Discharge Rx Participant: No New Discharge Prescriptions: New Acetaminophen Tab [Tylenol Tab] 650 mg PO Q4H PRN #30 tablet PRN Reason: Pain No Action Lo Loestrin Fe 1-10 1 tab PO DAILY Discharge Medication List Lo Loestrin Fe 1-10 1 tab PO DAILY 04/20/19 [History] Acetaminophen Tab [Tylenol Tab] 650 mg PO Q4H PRN #30 tablet 04/21/19 [Rx] Follow up Appointment(s)/Referral(s): Dragan Boudreaux MD [Primary Care Provider] - 04/24/19 10:00 am Moni Nichols MD [STAFF PHYSICIAN] - 04/28/19 3:40 pm Patient Instructions/Handouts: *Surgery [facility] - Laparoscopic Cholecystectomy Discharge Instructions, Acetaminophen (By mouth) Activity/Diet/Wound Care/Special Instructions: Tylenol as needed for pain No lifting over 10 pounds You may shower. No soaking or tub baths Very light activity until you are reevaluated at your follow up appointment with your surgeon Discharge Disposition: HOME SELF-CARE <Moni Nichols - Last Filed: 04/21/19 21:28> Providers Date of admission: 04/19/19 21:35 Attending physician: Moni Nichols Primary care physician: Dragan Boudreaux - Discharge Diagnosis(es) (1) Cholecystitis Status: Acute (2) Choledocholithiasis with cholecystitis Status: Acute (3) Gallstones Status: Acute (4) Intractable abdominal pain Status: Acute
== END 2019-04-21 10:58 | disposition home or self-care (01) ==
LOC: EC 18:27 → INTOOBSV 21:34 → 6PED 21:34 → UNDOADMIN 21:35 → 6PED 21:35 → 3NMEDONC 04-21 04:37 → UNDODISIN 04-21 10:58
PROVIDERS: ADMIT Surgery Plastic and Reconstructive Surgery; ATTEND Surgery Plastic and Reconstructive Surgery
DX: K80.67 Calculus of gallbladder and bile duct with acute and chronic cholecystitis with obstruction (principal); Z79.3 Long term (current) use of hormonal contraceptives
CPT/HCPCS: 96361; 96374; 96375; 99285; 36415; 81025 ×2; 88304; 80053; 82150; 83690; 85025; 81003; 47562; G0378 ×4; J2250; J1200; J2710; J2765; J0690; J2405 ×2; J2001; J3010; J1885 ×3; J1650 ×2; J1170 ×3; J0131; J0330; J2704; 96376

== ENCOUNTER → 2019-05-11 | Outpatient (CLI) | payer BC ==
--- NOTE | 2019-05-11 10:38 | FL ---
EXAMINATION TYPE: FL barium swallow DATE OF EXAM: 05/11/2019 CLINICAL HISTORY: History of cholecystectomy April 20, 2019 along with gastritis and reflux with pe rsistent epigastric pain. No improvement with antireflux medication. TECHNIQUE: A double contrast esophagram is performed utilizing air and barium. A total of 19 second s of fluoroscopic time was utilized during procedure. 28 spot images saved to PACS. COMPARISON: Prior upper GI study January 25, 2009. FINDINGS: The esophagus shows satisfactory motility and emptying into the stomach. No evidence of fi xed hiatal hernia or stricture noted. No diverticulum or intraluminal mass. No significant gastroesop hageal reflux was seen during real time performance of this study. IMPRESSION: No significant abnormality is seen to account for patient's symptoms.
== END | disposition home or self-care (01) ==
LOC: RADUSWWP 09:51
PROVIDERS: ATTEND Surgery Plastic and Reconstructive Surgery
DX: K21.9 Gastro-esophageal reflux disease without esophagitis (principal)
CPT/HCPCS: 74220

== ENCOUNTER → 2019-05-25 | Outpatient (CLI) | payer BC ==
--- NOTE | 2019-05-25 09:45 | US ---
EXAMINATION TYPE: US liver DATE OF EXAM: 05/25/2019 COMPARISON: NONE CLINICAL HISTORY: K80.20 Gallstones. gallbladder surgically absent EXAM MEASUREMENTS: Liver Length: 10.6 cm Gallbladder Wall: Surgically absent cm CBD: 0.3 cm Right Kidney: 10.7 x 4.3 x 5.1 cm Patient still having abdominal pain like before gallbladder was removed. Pancreas: wnl Liver: wnl Gallbladder: Surgically absent CBD: wnl Right Kidney: No hydronephrosis or masses seen IMPRESSION: Unremarkable targeted ultrasound. No postoperative fluid collection in the gallbladder fo ssa.
[2019-05-25 10:06] LABS: ALT 18 U/L (4-34); AST 23 U/L (14-36); African American GFR (CKD) >90 (>60 ml/min/1.73 sqM); Albumin 4.2 g/dL (3.5-5.0); Alkaline Phosphatase 61 U/L (38-126); Anion Gap 9 mmol/L; Blood Urea Nitrogen 13 mg/dL (7-17); Calcium 9.2 mg/dL (8.4-10.2); Carbon Dioxide 26 mmol/L (22-30); Chloride 106 mmol/L (98-107); Glucose 90 mg/dL (74-99); Non-African American GFR(CKD) >90 (>60 ml/min/1.73 sqM); Potassium 4.6 mmol/L (3.5-5.1); Sodium 141 mmol/L (137-145); Total Bilirubin 0.7 mg/dL (0.2-1.3); Total Protein 7.5 g/dL (6.3-8.2)
== END | disposition home or self-care (01) ==
LOC: RADUSWWP 08:29
PROVIDERS: ATTEND Surgery Plastic and Reconstructive Surgery
DX: K80.20 Calculus of gallbladder without cholecystitis without obstruction (principal)
CPT/HCPCS: 76705; 80053

== ENCOUNTER 2019-07-10 06:03 | Emergency (ER) | payer BC ==
[2019-07-10 06:09] VITALS: TEMP 97.9
[2019-07-10] MEDS ORDERED: LORazepam 2 MG/ML INJ IV STA (06:21)
[2019-07-10] MEDS ORDERED: SODIUM CHLORIDE 0.9% 1,000 ML IV ONE (06:21)
[2019-07-10] MEDS ORDERED: MORPHINE SULFATE 4 MG/ML SYRINGE IVP STA (06:26)
[2019-07-10] MEDS ORDERED: ASPIRIN 81 MG PO STA (06:26)
[2019-07-10] MEDS ORDERED: SODIUM CHLORIDE 0.9% 1,000 ML IV SCH (06:30)
--- NOTE | 2019-07-10 06:36 | XR ---
EXAMINATION TYPE: XR chest 1V portable DATE OF EXAM: 07/10/2019 COMPARISON: Chest x-ray July 27, 2017 HISTORY: Shortness of breath TECHNIQUE: Single AP portable frontal upright view of the chest is obtained. FINDINGS: Overlying EKG leads are present. There is no focal air space opacity, pleural effusion, or pneumothorax seen. The cardiac silhouette size is within normal limits. The osseous structures are intact. IMPRESSION: No acute cardiopulmonary process.
[2019-07-10 06:40] LABS: Basophils % (A) 0 %; Eosinophils # (A) 0.4 k/uL (0-0.7); Eosinophils % (A) 2 %; HCT 44.8 % (34.0-46.0); HGB 14.9 gm/dL (11.4-16.0); Lymphocytes # (A) 0.5 k/uL (1.0-4.8); Lymphocytes % (A) 3 %; MCH 29.7 pg (25.0-35.0); MCHC 33.2 g/dL (31.0-37.0); MCV 89.5 fL (80.0-100.0); Mean Platelet Volume 7.5; Monocytes # (A) 0.3 k/uL (0-1.0); Monocytes % (A) 2 %; Neutrophils % (A) 92 %; Platelet Count 288 k/uL (150-450); RBC 5.01 m/uL (3.80-5.40); WBC 15.3 k/uL (3.8-10.6)
[2019-07-10 06:48] LABS: INR 0.9 (<1.2); Partial Thromboplastin Time 22.5 sec (22.0-30.0); Prothrombin Time 9.9 sec (9.0-12.0)
[2019-07-10 06:50] LABS: ALT 16 U/L (4-34); AST 23 U/L (14-36); African American GFR (CKD) >90 (>60 ml/min/1.73 sqM); Albumin 4.5 g/dL (3.5-5.0); Alkaline Phosphatase 74 U/L (38-126); Anion Gap 10 mmol/L; Blood Urea Nitrogen 11 mg/dL (7-17); Calcium 9.6 mg/dL (8.4-10.2); Carbon Dioxide 22 mmol/L (22-30); Chloride 106 mmol/L (98-107); Creatine Kinase 39 U/L (30-135); Glucose 126 mg/dL (74-99); Non-African American GFR(CKD) >90 (>60 ml/min/1.73 sqM); Potassium 4.2 mmol/L (3.5-5.1); Sodium 138 mmol/L (137-145); Total Bilirubin 0.9 mg/dL (0.2-1.3); Total Protein 7.9 g/dL (6.3-8.2)
--- NOTE | 2019-07-10 07:00 | CT ---
EXAMINATION TYPE: CT angio chest DATE OF EXAM: 07/10/2019 COMPARISON: Chest x-ray earlier today. HISTORY: r/o pe CT DLP: 228.8 mGycm. Automated Exposure Control for Dose Reduction was Utilized. CONTRAST: CTA scan of the thorax is performed with IV Contrast, patient injected with 55 mL of Isovue 370, pulm onary embolism protocol. MIP Images are created on CT scanner and reviewed. FINDINGS: LUNGS: Some dependent atelectasis bilateral lower lobes. No suspicious consolidation. Slight motion artifact mid to lower lungs near diaphragm. No concerning masses. There is no pleural effusion or pne umothorax seen. The tracheobronchial tree is patent. MEDIASTINUM: There is a suboptimal study with near equal contrast in right and left heart systems and overall areas of heterogeneity, no large central pulmonary embolism. Overall cannot definitively exc lude smaller segmental and subsegmental pulmonary emboli due to heterogeneity particularly in smaller branching vessels There are no greater than 1 cm hilar or mediastinal lymph nodes. No cardiomegaly or pericardial effusion is seen. OTHER: No additional significant abnormality is seen. IMPRESSION: Suboptimal study without central pulmonary embolism, smaller segmental and subsegmental P E not entirely excluded. No suspicious acute pulmonary process.
[2019-07-10 07:19] VITALS: RESP 18
[2019-07-10] MEDS ORDERED: SODIUM CHLORIDE 0.9% 500 ML 500 ML IV ONE (07:24)
[2019-07-10 07:50] LABS: Appearance,Urine Clear (Clear); Bilirubin,Urine Negative (Negative); Blood,Urine Negative (Negative); Color,Urine Light Yellow; Glucose,Urine (UA) Negative (Negative); Ketones,Urine 1+ (Negative); Leukocyte Esterase,Urine Small (Negative); Mucus,Urine Rare /hpf; Nitrite,Urine Negative (Negative); PH, Urine 8.5 (5.0-8.0); Protein,Urine Trace (Negative); RBC,Urine 1 /hpf (0-5); Squamous Epithelial Cell,Urine 6 /hpf (0-4); Urobilinogen,Urine <2.0 mg/dL (<2.0); WBC,Urine 1 /hpf (0-5)
[2019-07-10] MEDS ORDERED: KETOROLAC 30 MG/ML 1 ML VIAL IVP STA (08:11)
[2019-07-10 08:17] VITALS: BP 124/82; PULSE 106
--- NOTE | 2019-07-10 08:25 | ED ---
SOB HPI - General Chief Complaint: Shortness of Breath Stated Complaint: Diff Breathing Time Seen by Provider: 07/10/19 06:15 Source: patient Mode of arrival: ambulatory - History of Present Illness Initial Comments: 38-year-old female on oral contraceptives, <3 months s/p laparoscopic cholecystectomy-performed 04/20/2020. presenting today for chief complaint of shortness of breath pleuritic left-sided rib pain. Patient states this morning she woke up at 3:30 a.m. with left-sided rib pain that increased with deep inspiration. Its in the front and back of the left mid/lower ribs. Patient states she felt slightly short of breath. Patient admits to dry throat denies congestion or cough prior to today. Admits to cough this morning. Patient denies noting symptoms prior to this but states she has felt general malaise since her gallbladder removal. Patient denies abdominal pain. Patient denies leg swelling, history of DVT/PE or clotting disorders-patient mother does have Factor 5 deficiency however patient was tested and is not inflicted with disease/carrier. Patient denies substernal chest pain, chest pressure, denies arm or jaw pain, denies epigastric pain. Patient is not a smoker, denies DM/HTN. Patient on arrival appears anxious she is not diaphoretic. Nontoxic in appearance. HR noted to be elevated, patient is not hypoxic. - Related Data Home Medications Medication Instructions Recorded Confirmed Lo Loestrin Fe 1-10 1 tab PO DAILY 04/20/19 04/20/19 Previous Rx's Medication Instructions Recorded Acetaminophen Tab [Tylenol Tab] 650 mg PO Q4H PRN #30 tablet 04/21/19 Allergies Allergy/AdvReac Type Severity Reaction Status Date / Time No Known Allergies Allergy Verified 07/10/19 06:09 Review of Systems ROS Statement: Those systems with pertinent positive or pertinent negative responses have been documented in the HPI. ROS Other: All systems not noted in ROS Statement are negative. Past Medical History Past Medical History: No Reported History Additional Past Medical History / Comment(s): gastritis, ovarian cysts History of Any Multi-Drug Resistant Organisms: None Reported Past Surgical History: No Surgical Hx Reported, Cholecystectomy Additional Past Surgical History / Comment(s): EGD, uterine wall and ovarian cyst removal Past Anesthesia/Blood Transfusion Reactions: No Reported Reaction Past Psychological History: No Psychological Hx Reported Smoking Status: Never smoker Past Alcohol Use History: Occasional Past Drug Use History: None Reported - Past Family History Mother Additional Family Medical History / Comment(s): TIAs Father Family Medical History: No Reported History General Exam - General Exam Comments Initial Comments: General: The patient is awake and alert, coughing with deep breaths Eye: +3 mm pupils are equal, round and reactive to light, extra-ocular movements are intact. No nystagmus. There is normal conjunctiva bilaterally. No signs of icterus. Ears, nose, mouth and throat: There are moist mucous membranes and no oral lesions. Neck: The neck is supple, there is no tenderness or JVD. Cardiovascular: There is a regular rate and rhythm. No murmur, rub or gallop is appreciated. Respiratory: Lungs are clear to auscultation-present in all zelaya, respirations are non-labored, breath sounds are equal. No wheezes, stridor, rales, or rhonchi. Gastrointestinal: healed incision on the RUQ of abdomen, umbilicus. Soft, non- distended, non-tender abdomen without masses or organomegaly noted. There is no rebound or guarding present. Musculoskeletal: Normal ROM, no tenderness. Strength 5/5. Sensation intact. Radial and DP pulses equal bilaterally 2+. Neurological: A&O x 3. CN II-XII intact grossly, There are no obvious motor or sensory deficits. Coordination appears grossly intact. Speech is normal. Skin: Skin is warm and dry and no rashes or lesions are noted. NO LE edema, no calf pain to palpation. No calf swelling. Leg appear equal. Psychiatric: Cooperative, appropriate mood & affect, normal judgment. Course Vital Signs 07/10/19 07/10/19 07/10/19 06:04 06:30 07:00 Temperature 97.9 F Pulse Rate 134 H 134 H 112 H Respiratory 20 17 16 Rate Blood Pressure 122/77 120/92 132/83 O2 Sat by Pulse 100 100 100 Oximetry 07/10/19 07/10/19 07:18 08:00 Temperature Pulse Rate 114 H 106 H Respiratory 18 18 Rate Blood Pressure 122/80 124/82 O2 Sat by Pulse 100 99 Oximetry Medical Decision Making - Medical Decision Making 38yo female presenting for cough, pain with inspiration in left ribs. HR elevated on arrival. Risk factors for PE-contraceptives/recent abdominal surgery. Beside CXR ordered to r/o spontaneous PTX, (-). CTA (-) for large PE, cannot exclude subsegmental however dimer returned WNL. Patient not hypoxic, tachycardia improved with fluids. Patient EKG no acute ischemic findings. Sinus tachycardia. Patient Troponin (-). CP does not appear typical. Patient has cough. Influenza (-), no focal consolidations. patient has mild leukocytosis but did appear quite anxious on arrival possible reactive. Patient does not appears toxic/septic. No mumur, leg swelling on exam. TSH WNL. Patient case, EKGs, imaging reviewed with attending Dr. Rizo at this time we feel this may be pleurisy or atypical chest pain given clinical presentation workup results at this time in the disease process. Recommend close follow-up and strict return parameters. Patient is agreeable to this plan as well as discharge, state she understand the importance of close monitoring of symptoms. Initial EKG obtained at 6:31 AM, this revealed significant artifact this patient had tremor. Ventricular rate 130 bpm WI interval 126 ms QR station 78 ms, QT/QTC 308/453 ms. There is no obvious ST elevation or depression. Normal R- wave progression, however as noted singificant artifact. Will repeat Repeat EKG 0726: Ventricular rate 113 bpm, WI interval 120 ms, QR station 84 ms, QT/QTC 334/458. Again no ST elevation or depression. Normal R-wave progression no findings consistent with acute ischemia. EKG personally reviewed and interpreted by myself as well as attending provider. - Lab Data Result diagrams: 07/10/19 06:23 07/10/19 06:23 Lab Results 07/10/19 07/10/19 07/10/19 Range/Units 06:23 06:23 06:23 WBC 15.3 H (3.8-10.6) k/uL RBC 5.01 (3.80-5.40) m/uL Hgb 14.9 (11.4-16.0) gm/dL Hct 44.8 (34.0-46.0) % MCV 89.5 (80.0-100.0) fL MCH 29.7 (25.0-35.0) pg MCHC 33.2 (31.0-37.0) g/dL RDW 12.0 (11.5-15.5) % Plt Count 288 (150-450) k/uL Neutrophils % 92 % Lymphocytes % 3 % Monocytes % 2 % Eosinophils % 2 % Basophils % 0 % Neutrophils # 14.0 H (1.3-7.7) k/uL Lymphocytes # 0.5 L (1.0-4.8) k/uL Monocytes # 0.3 (0-1.0) k/uL Eosinophils # 0.4 (0-0.7) k/uL Basophils # 0.0 (0-0.2) k/uL PT 9.9 (9.0-12.0) sec INR 0.9 (<1.2) APTT 22.5 (22.0-30.0) sec D-Dimer (<0.60) mg/L FEU Sodium 138 (137-145) mmol/L Potassium 4.2 (3.5-5.1) mmol/L Chloride 106 (98-107) mmol/L Carbon Dioxide 22 (22-30) mmol/L Anion Gap 10 mmol/L BUN 11 (7-17) mg/dL Creatinine 0.68 (0.52-1.04) mg/dL Est GFR (CKD-EPI)AfAm >90 (>60 ml/min/1.73 sqM) Est GFR (CKD-EPI)NonAf >90 (>60 ml/min/1.73 sqM) Glucose 126 H (74-99) mg/dL Plasma Lactic Acid Richard (0.7-2.0) mmol/L Calcium 9.6 (8.4-10.2) mg/dL Total Bilirubin 0.9 (0.2-1.3) mg/dL AST 23 (14-36) U/L ALT 16 (4-34) U/L Alkaline Phosphatase 74 (38-126) U/L Creatine Kinase 39 (30-135) U/L Troponin I (0.000-0.034) ng/mL Total Protein 7.9 (6.3-8.2) g/dL Albumin 4.5 (3.5-5.0) g/dL TSH (0.465-4.680) mIU/L Urine HCG, Qual (Not Detectd) Influenza Type A RNA (Not Detectd) Influenza Type B (PCR) (Not Detectd) 07/10/19 07/10/19 07/10/19 Range/Units 06:23 06:23 06:23 WBC (3.8-10.6) k/uL RBC (3.80-5.40) m/uL Hgb (11.4-16.0) gm/dL Hct (34.0-46.0) % MCV (80.0-100.0) fL MCH (25.0-35.0) pg MCHC (31.0-37.0) g/dL RDW (11.5-15.5) % Plt Count (150-450) k/uL Neutrophils % % Lymphocytes % % Monocytes % % Eosinophils % % Basophils % % Neutrophils # (1.3-7.7) k/uL Lymphocytes # (1.0-4.8) k/uL Monocytes # (0-1.0) k/uL Eosinophils # (0-0.7) k/uL Basophils # (0-0.2) k/uL PT (9.0-12.0) sec INR (<1.2) APTT (22.0-30.0) sec D-Dimer 0.24 (<0.60) mg/L FEU Sodium (137-145) mmol/L Potassium (3.5-5.1) mmol/L Chloride (98-107) mmol/L Carbon Dioxide (22-30) mmol/L Anion Gap mmol/L BUN (7-17) mg/dL Creatinine (0.52-1.04) mg/dL Est GFR (CKD-EPI)AfAm (>60 ml/min/1.73 sqM) Est GFR (CKD-EPI)NonAf (>60 ml/min/1.73 sqM) Glucose (74-99) mg/dL Plasma Lactic Acid Richard 2.0 (0.7-2.0) mmol/L Calcium (8.4-10.2) mg/dL Total Bilirubin (0.2-1.3) mg/dL AST (14-36) U/L ALT (4-34) U/L Alkaline Phosphatase (38-126) U/L Creatine Kinase (30-135) U/L Troponin I <0.012 (0.000-0.034) ng/mL Total Protein (6.3-8.2) g/dL Albumin (3.5-5.0) g/dL TSH (0.465-4.680) mIU/L Urine HCG, Qual (Not Detectd) Influenza Type A RNA (Not Detectd) Influenza Type B (PCR) (Not Detectd) 07/10/19 07/10/19 07/10/19 Range/Units 06:23 06:42 07:20 WBC (3.8-10.6) k/uL RBC (3.80-5.40) m/uL Hgb (11.4-16.0) gm/dL Hct (34.0-46.0) % MCV (80.0-100.0) fL MCH (25.0-35.0) pg MCHC (31.0-37.0) g/dL RDW (11.5-15.5) % Plt Count (150-450) k/uL Neutrophils % % Lymphocytes % % Monocytes % % Eosinophils % % Basophils % % Neutrophils # (1.3-7.7) k/uL Lymphocytes # (1.0-4.8) k/uL Monocytes # (0-1.0) k/uL Eosinophils # (0-0.7) k/uL Basophils # (0-0.2) k/uL PT (9.0-12.0) sec INR (<1.2) APTT (22.0-30.0) sec D-Dimer (<0.60) mg/L FEU Sodium (137-145) mmol/L Potassium (3.5-5.1) mmol/L Chloride (98-107) mmol/L Carbon Dioxide (22-30) mmol/L Anion Gap mmol/L BUN (7-17) mg/dL Creatinine (0.52-1.04) mg/dL Est GFR (CKD-EPI)AfAm (>60 ml/min/1.73 sqM) Est GFR (CKD-EPI)NonAf (>60 ml/min/1.73 sqM) Glucose (74-99) mg/dL Plasma Lactic Acid Richard (0.7-2.0) mmol/L Calcium (8.4-10.2) mg/dL Total Bilirubin (0.2-1.3) mg/dL AST (14-36) U/L ALT (4-34) U/L Alkaline Phosphatase (38-126) U/L Creatine Kinase (30-135) U/L Troponin I (0.000-0.034) ng/mL Total Protein (6.3-8.2) g/dL Albumin (3.5-5.0) g/dL TSH 1.150 (0.465-4.680) mIU/L Urine HCG, Qual Not Detected (Not Detectd) Influenza Type A RNA Not Detected (Not Detectd) Influenza Type B (PCR) Not Detected (Not Detectd) Disposition Clinical Impression: Pleuritic chest pain, Tachycardia Disposition: HOME SELF-CARE Condition: Good Instructions (If sedation given, give patient instructions): Chest Pain (ED), Pleurisy (ED), Noncardiac Chest Pain (ED) Additional Instructions: Please use medication as discussed. Please follow-up with family doctor in the next 2 days, call today to schedule follow-up I recommend outpatient holter monitor for tachycardia as discussed and cadiology follow-up. Please return to emergency room if the symptoms increase or worsen or for any other concerns. Is patient prescribed a controlled substance at d/c from ED?: No Referrals: Dragan Boudreaux MD [Primary Care Provider] - 1-2 days Daniel Gay MD [STAFF PHYSICIAN] - 1-2 days Time of Disposition: 08:24
[2019-07-10 08:34] LABS: Specific Gravity,Urine >1.050 (1.001-1.035)
== END 2019-07-10 08:41 | disposition home or self-care (01) ==
LOC: EC 06:03
DX: R00.0 Tachycardia, unspecified (principal); R07.81 Pleurodynia; D72.829 Elevated white blood cell count, unspecified; R05 Cough; R06.02 Shortness of breath; J39.2 Other diseases of pharynx; R53.81 Other malaise; Z79.3 Long term (current) use of hormonal contraceptives; Z90.49 Acquired absence of other specified parts of digestive tract; Z53.20 Procedure and treatment not carried out because of patient's decision for unspecified reasons
CPT/HCPCS: 36415; 93005; 85379; 80053; 84443; 82550; 83605; 84484; 85025; 85610; 85730; 81001; 81025; 87502; 71045; 71275; 99285; 96374; 96375; 96361 ×2; J2060; J1885; Q9967

== ENCOUNTER 2020-04-23 12:20 | Emergency (ER) | payer BC ==
[2020-04-23 12:48] VITALS: RESP 18
[2020-04-23] MEDS ORDERED: PANTOPRAZOLE 40 MG/10 ML VIAL IVP STA (13:05)
[2020-04-23] MEDS ORDERED: SODIUM CHLORIDE 0.9% 1,000 ML IV STA (13:05)
--- NOTE | 2020-04-23 13:12 | ED ---
General Adult HPI - General Chief complaint: Recheck/Abnormal Lab/Rx Stated complaint: Weakness, Body Aches, +Covid Time Seen by Provider: 04/23/20 12:58 Source: patient, RN notes reviewed, old records reviewed Mode of arrival: ambulatory Limitations: no limitations - History of Present Illness Initial comments: 39-year-old female presenting for evaluation of fever, epigastric fullness and warmth sensation. Patient was diagnosed with coronavirus little over 2 weeks ago. She states that the majority of her symptoms have improved however over the past 2 days she developed this sensation in her mid abdomen and lower chest, describes as a fullness, and warm sensation. She denies vomiting. She had diarrhea but states this is not abnormal for she's had previous cholecystectomy. She denies measured fever. She denies dyspnea. States her cough has improved. She's had some tremor. She states she had a good breakfast today but overall has not been eating or drinking well. - Related Data Home Medications Medication Instructions Recorded Confirmed Lo Loestrin Fe 1-10 1 tab PO DAILY 04/20/19 04/23/20 Multivitamins, Thera [Multivitamin 1 tab PO DAILY 04/23/20 04/23/20 (formulary)] Previous Rx's Medication Instructions Recorded Acetaminophen Tab [Tylenol Tab] 650 mg PO Q4H PRN #30 tablet 04/21/19 Allergies Allergy/AdvReac Type Severity Reaction Status Date / Time No Known Allergies Allergy Verified 04/23/20 14:51 Review of Systems ROS Statement: Those systems with pertinent positive or pertinent negative responses have been documented in the HPI. ROS Other: All systems not noted in ROS Statement are negative. Past Medical History Past Medical History: No Reported History Additional Past Medical History / Comment(s): gastritis, ovarian cysts History of Any Multi-Drug Resistant Organisms: None Reported Past Surgical History: No Surgical Hx Reported, Cholecystectomy Additional Past Surgical History / Comment(s): EGD, uterine wall and ovarian cyst removal Past Anesthesia/Blood Transfusion Reactions: No Reported Reaction Past Psychological History: No Psychological Hx Reported Smoking Status: Never smoker Past Alcohol Use History: Occasional Past Drug Use History: None Reported - Past Family History Mother Additional Family Medical History / Comment(s): TIAs Father Family Medical History: No Reported History General Exam Limitations: no limitations General appearance: alert, in no apparent distress, anxious Head exam: Present: atraumatic, normocephalic Eye exam: Present: normal appearance, PERRL ENT exam: Present: mucous membranes dry Neck exam: Present: normal inspection. Absent: tenderness, meningismus Respiratory exam: Present: normal lung sounds bilaterally. Absent: respiratory distress, wheezes Cardiovascular Exam: Present: normal rhythm, tachycardia GI/Abdominal exam: Present: soft. Absent: distended, tenderness, guarding, rebound, rigid Extremities exam: Present: normal inspection, normal capillary refill. Absent: pedal edema, calf tenderness Neurological exam: Present: alert, oriented X3, CN II-XII intact. Absent: motor sensory deficit Psychiatric exam: Present: anxious Skin exam: Present: warm, dry, intact. Absent: cyanosis, diaphoretic Course Vital Signs 04/23/20 12:44 Temperature 98.1 F Pulse Rate 106 H Respiratory 18 Rate Blood Pressure 133/92 O2 Sat by Pulse 98 Oximetry EKG Findings - EKG Comments: EKG Findings:: EKG: Normal sinus rhythm, rate of 89, TX interval 116, QRS durati on 88, QTC 428 T-wave inversion in lead 3. Medical Decision Making - Medical Decision Making 39 yo female presenting for evaluation of fever, epigastric and lower chest discomfort, fullness. Patient is tachycardic otherwise he wouldn't medically stable. She does appear somewhat anxious. She has a CBC showing mild leukocytosis, stable hemoglobin, normal electrolytes. Did perform CT angiography of the chest to rule out pulmonary embolism in this patient, this is negative, no PE, no acute findings. Patient is reassured. She will follow with her primary care physician regarding any ongoing symptoms, she will return to emergency department with worsening or changing symptoms. - Lab Data Result diagrams: 04/23/20 13:17 04/23/20 13:17 Lab Results 04/23/20 04/23/20 04/23/20 Range/Units 13:17 13:17 13:17 WBC 10.9 H (3.8-10.6) k/uL RBC 4.99 (3.80-5.40) m/uL Hgb 15.1 (11.4-16.0) gm/dL Hct 45.3 (34.0-46.0) % MCV 90.6 (80.0-100.0) fL MCH 30.3 (25.0-35.0) pg MCHC 33.4 (31.0-37.0) g/dL RDW 12.1 (11.5-15.5) % Plt Count 399 (150-450) k/uL MPV 7.3 Neutrophils % 64 % Lymphocytes % 25 % Monocytes % 7 % Eosinophils % 2 % Basophils % 0 % Neutrophils # 6.9 (1.3-7.7) k/uL Lymphocytes # 2.7 (1.0-4.8) k/uL Monocytes # 0.8 (0-1.0) k/uL Eosinophils # 0.3 (0-0.7) k/uL Basophils # 0.0 (0-0.2) k/uL PT 9.8 (9.0-12.0) sec INR 0.9 (<1.2) APTT 21.9 L (22.0-30.0) sec Sodium (137-145) mmol/L Potassium (3.5-5.1) mmol/L Chloride (98-107) mmol/L Carbon Dioxide (22-30) mmol/L Anion Gap mmol/L BUN (7-17) mg/dL Creatinine (0.52-1.04) mg/dL Est GFR (CKD-EPI)AfAm (>60 ml/min/1.73 sqM) Est GFR (CKD-EPI)NonAf (>60 ml/min/1.73 sqM) Glucose (74-99) mg/dL Plasma Lactic Acid Richard (0.7-2.0) mmol/L Calcium (8.4-10.2) mg/dL Magnesium (1.6-2.3) mg/dL Total Bilirubin (0.2-1.3) mg/dL AST (14-36) U/L ALT (4-34) U/L Alkaline Phosphatase (38-126) U/L Troponin I (0.000-0.034) ng/mL Total Protein (6.3-8.2) g/dL Albumin (3.5-5.0) g/dL Amylase (30-110) U/L Lipase (23-300) U/L Urine Color Light Yellow Urine Appearance Clear (Clear) Urine pH 6.5 (5.0-8.0) Ur Specific [place] 1.010 (1.001-1.035) Urine Protein Negative (Negative) Urine Glucose (UA) Negative (Negative) Urine Ketones Negative (Negative) Urine Blood Negative (Negative) Urine Nitrite Negative (Negative) Urine Bilirubin Negative (Negative) Urine Urobilinogen <2.0 (<2.0) mg/dL Ur Leukocyte Esterase Trace H (Negative) Urine WBC 1 (0-5) /hpf Ur Squamous Epith Cells 4 (0-4) /hpf Urine HCG, Qual (Not Detectd) 04/23/20 04/23/20 04/23/20 Range/Units 13:17 13:17 13:17 WBC (3.8-10.6) k/uL RBC (3.80-5.40) m/uL Hgb (11.4-16.0) gm/dL Hct (34.0-46.0) % MCV (80.0-100.0) fL MCH (25.0-35.0) pg MCHC (31.0-37.0) g/dL RDW (11.5-15.5) % Plt Count (150-450) k/uL MPV Neutrophils % % Lymphocytes % % Monocytes % % Eosinophils % % Basophils % % Neutrophils # (1.3-7.7) k/uL Lymphocytes # (1.0-4.8) k/uL Monocytes # (0-1.0) k/uL Eosinophils # (0-0.7) k/uL Basophils # (0-0.2) k/uL PT (9.0-12.0) sec INR (<1.2) APTT (22.0-30.0) sec Sodium 137 (137-145) mmol/L Potassium 4.3 (3.5-5.1) mmol/L Chloride 101 (98-107) mmol/L Carbon Dioxide 29 (22-30) mmol/L Anion Gap 7 mmol/L BUN 17 (7-17) mg/dL Creatinine 0.87 (0.52-1.04) mg/dL Est GFR (CKD-EPI)AfAm >90 (>60 ml/min/1.73 sqM) Est GFR (CKD-EPI)NonAf 85 (>60 ml/min/1.73 sqM) Glucose 99 (74-99) mg/dL Plasma Lactic Acid Richard 1.3 (0.7-2.0) mmol/L Calcium 9.2 (8.4-10.2) mg/dL Magnesium 2.0 (1.6-2.3) mg/dL Total Bilirubin 0.4 (0.2-1.3) mg/dL AST 21 (14-36) U/L ALT 22 (4-34) U/L Alkaline Phosphatase 68 (38-126) U/L Troponin I (0.000-0.034) ng/mL Total Protein 7.2 (6.3-8.2) g/dL Albumin 4.2 (3.5-5.0) g/dL Amylase 51 (30-110) U/L Lipase 307 H (23-300) U/L Urine Color Urine Appearance (Clear) Urine pH (5.0-8.0) Ur Specific [place] (1.001-1.035) Urine Protein (Negative) Urine Glucose (UA) (Negative) Urine Ketones (Negative) Urine Blood (Negative) Urine Nitrite (Negative) Urine Bilirubin (Negative) Urine Urobilinogen (<2.0) mg/dL Ur Leukocyte Esterase (Negative) Urine WBC (0-5) /hpf Ur Squamous Epith Cells (0-4) /hpf Urine HCG, Qual Not Detected (Not Detectd) 04/23/20 Range/Units 13:17 WBC (3.8-10.6) k/uL RBC (3.80-5.40) m/uL Hgb (11.4-16.0) gm/dL Hct (34.0-46.0) % MCV (80.0-100.0) fL MCH (25.0-35.0) pg MCHC (31.0-37.0) g/dL RDW (11.5-15.5) % Plt Count (150-450) k/uL MPV Neutrophils % % Lymphocytes % % Monocytes % % Eosinophils % % Basophils % % Neutrophils # (1.3-7.7) k/uL Lymphocytes # (1.0-4.8) k/uL Monocytes # (0-1.0) k/uL Eosinophils # (0-0.7) k/uL Basophils # (0-0.2) k/uL PT (9.0-12.0) sec INR (<1.2) APTT (22.0-30.0) sec Sodium (137-145) mmol/L Potassium (3.5-5.1) mmol/L Chloride (98-107) mmol/L Carbon Dioxide (22-30) mmol/L Anion Gap mmol/L BUN (7-17) mg/dL Creatinine (0.52-1.04) mg/dL Est GFR (CKD-EPI)AfAm (>60 ml/min/1.73 sqM) Est GFR (CKD-EPI)NonAf (>60 ml/min/1.73 sqM) Glucose (74-99) mg/dL Plasma Lactic Acid Richard (0.7-2.0) mmol/L Calcium (8.4-10.2) mg/dL Magnesium (1.6-2.3) mg/dL Total Bilirubin (0.2-1.3) mg/dL AST (14-36) U/L ALT (4-34) U/L Alkaline Phosphatase (38-126) U/L Troponin I <0.012 (0.000-0.034) ng/mL Total Protein (6.3-8.2) g/dL Albumin (3.5-5.0) g/dL Amylase (30-110) U/L Lipase (23-300) U/L Urine Color Urine Appearance (Clear) Urine pH (5.0-8.0) Ur Specific [place] (1.001-1.035) Urine Protein (Negative) Urine Glucose (UA) (Negative) Urine Ketones (Negative) Urine Blood (Negative) Urine Nitrite (Negative) Urine Bilirubin (Negative) Urine Urobilinogen (<2.0) mg/dL Ur Leukocyte Esterase (Negative) Urine WBC (0-5) /hpf Ur Squamous Epith Cells (0-4) /hpf Urine HCG, Qual (Not Detectd) Disposition Clinical Impression: COVID-19 Disposition: HOME SELF-CARE Condition: Good Instructions (If sedation given, give patient instructions): Viral Syndrome (ED), Abdominal Pain (ED) Is patient prescribed a controlled substance at d/c from ED?: No Referrals: Dragan Boudreaux MD [Primary Care Provider] - 1-2 days Time of Disposition: 15:15
[2020-04-23 13:44] LABS: Basophils % (A) 0 %; Eosinophils # (A) 0.3 k/uL (0-0.7); Eosinophils % (A) 2 %; HCT 45.3 % (34.0-46.0); HGB 15.1 gm/dL (11.4-16.0); Lymphocytes # (A) 2.7 k/uL (1.0-4.8); Lymphocytes % (A) 25 %; MCH 30.3 pg (25.0-35.0); MCHC 33.4 g/dL (31.0-37.0); MCV 90.6 fL (80.0-100.0); Mean Platelet Volume 7.3; Monocytes # (A) 0.8 k/uL (0-1.0); Monocytes % (A) 7 %; Neutrophils # (A) 6.9 k/uL (1.3-7.7); Neutrophils % (A) 64 %; Platelet Count 399 k/uL (150-450); RBC 4.99 m/uL (3.80-5.40); RDW 12.1 % (11.5-15.5); WBC 10.9 k/uL (3.8-10.6)
[2020-04-23 13:45] LABS: ALT 22 U/L (4-34); AST 21 U/L (14-36); African American GFR (CKD) >90 (>60 ml/min/1.73 sqM); Albumin 4.2 g/dL (3.5-5.0); Alkaline Phosphatase 68 U/L (38-126); Amylase 51 U/L (30-110); Anion Gap 7 mmol/L; Blood Urea Nitrogen 17 mg/dL (7-17); Calcium 9.2 mg/dL (8.4-10.2); Carbon Dioxide 29 mmol/L (22-30); Chloride 101 mmol/L (98-107); Glucose 99 mg/dL (74-99); Lipase 307 U/L (23-300); Non-African American GFR(CKD) 85 (>60 ml/min/1.73 sqM); Potassium 4.3 mmol/L (3.5-5.1); Sodium 137 mmol/L (137-145); Total Bilirubin 0.4 mg/dL (0.2-1.3); Total Protein 7.2 g/dL (6.3-8.2)
[2020-04-23 14:01] LABS: Appearance,Urine Clear (Clear); Bilirubin,Urine Negative (Negative); Blood,Urine Negative (Negative); Color,Urine Light Yellow; Glucose,Urine (UA) Negative (Negative); Ketones,Urine Negative (Negative); Leukocyte Esterase,Urine Trace (Negative); Nitrite,Urine Negative (Negative); PH, Urine 6.5 (5.0-8.0); Protein,Urine Negative (Negative); Squamous Epithelial Cell,Urine 4 /hpf (0-4); Urobilinogen,Urine <2.0 mg/dL (<2.0); WBC,Urine 1 /hpf (0-5)
[2020-04-23 14:02] LABS: INR 0.9 (<1.2); Partial Thromboplastin Time 21.9 sec (22.0-30.0); Prothrombin Time 9.8 sec (9.0-12.0)
--- NOTE | 2020-04-23 15:04 | CT ---
EXAMINATION TYPE: CT angio chest DATE OF EXAM: 04/23/2020 2:56 PM COMPARISON: 07/10/2019. HISTORY: Cough, shortness of breath. CT DLP: 237.7 mGycm Automated exposure control for dose reduction was used. CONTRAST: CTA scan of the thorax is performed with IV Contrast, patient injected with 100 mL of Isovue 370, pul monary embolism protocol. MIP images are created and reviewed. FINDINGS: LUNGS: The lungs are grossly clear, there is no concerning parenchymal mass or nodule identified. T here is no pleural effusion or pneumothorax seen. The tracheobronchial tree is patent. MEDIASTINUM: There is satisfactory enhancement of the pulmonary artery and its branches, there is no CT evidence for pulmonary embolism. There are no greater than 1 cm hilar or mediastinal lymph nodes. No pericardial effusion is seen. OTHER: No additional significant abnormality is seen. IMPRESSION: NO ACUTE PE OR OTHER CARDIOPULMONARY ABNORMALITY.
[2020-04-23 15:54] VITALS: BP 131/76; PULSE 82; TEMP 98.2
== END 2020-04-23 15:54 | disposition home or self-care (01) ==
LOC: EC 12:20
DX: U07.1 COVID-19 (principal); R00.0 Tachycardia, unspecified; D72.829 Elevated white blood cell count, unspecified; R19.7 Diarrhea, unspecified; R25.1 Tremor, unspecified; Z79.3 Long term (current) use of hormonal contraceptives; Z90.49 Acquired absence of other specified parts of digestive tract
CPT/HCPCS: 36415; 93005; 80053; 82150; 83605; 83690; 83735; 84484; 85025; 85610; 85730; 81001; 81025; 71275; 99285; 96374; 96361 ×2; C9113; Q9967

== ENCOUNTER → 2020-12-27 | Outpatient (CLI) | payer BC ==
[2020-12-27 14:47] LABS: Basophils # (A) 0.06 X 10*3/uL (0.00-0.10); Basophils % (A) 0.9 %; Eosinophils # (A) 0.22 X 10*3/uL (0.04-0.35); Eosinophils % (A) 3.4 %; HCT 42.1 % (37.2-46.3); HGB 13.5 g/dL (12.0-15.0); Lymphocytes # (A) 1.53 X 10*3/uL (0.90-5.00); Lymphocytes % (A) 23.6 %; MCH 30.8 pg (27.0-32.0); MCHC 32.1 g/dL (32.0-37.0); MCV 95.9 fL (80.0-97.0); Monocytes # (A) 0.53 X 10*3/uL (0.20-1.00); Monocytes % (A) 8.2 %; Neutrophils % (A) 63.1 %; Platelet Count 335 X 10*3/uL (140-440); RBC 4.39 X 10*6/uL (4.10-5.20); RDW 11.8 % (11.5-14.5); WBC 6.49 X 10*3/uL (4.50-10.00)
[2020-12-27 15:38] LABS: Thyroid Peroxidase Antibodies <28.0 U/mL (0.0-60.0)
[2020-12-27 15:57] LABS: African American GFR (CKD) 126.5 (60.0-200.0); Albumin 4.3 g/dL (3.80-4.90); Albumin/Globulin Ratio 1.59 (1.60-3.17); Anion Gap 7.7 mmol/L (4.00-12.00); BUN/Creat Ratio 18.57 Ratio (12.00-20.00); Calcium 8.7 mg/dL (8.7-10.3); Carbon Dioxide 24.3 mmol/L (21.6-31.8); Globulin 2.7 g/dL (1.6-3.3); Non-African American GFR(CKD) 109.1 (60.0-200.0); Potassium 4.3 mmol/L (3.5-5.5); Total Bilirubin 0.5 mg/dL (0.2-1.2)
[2020-12-27 16:05] LABS: T4, Free (Free Thyroxine) 1.2 ng/dL (0.80-1.80)
[2020-12-27 16:08] LABS: Folate, Serum 7.3 ng/mL
[2020-12-28 11:48] LABS: HLA B27 NEGATIVE
== END | disposition home or self-care (01) ==
LOC: LABWHC1 09:32
PROVIDERS: ATTEND Nurse Practitioner Adult Health
DX: G25.0 Essential tremor (principal); M54.2 Cervicalgia; G62.9 Polyneuropathy, unspecified
CPT/HCPCS: 36415; 80053; 82607; 82746; 83090; 83540; 84439; 84443; 85025; 86038; 86376; 86812

== ENCOUNTER → 2021-01-05 | Outpatient (CLI) | payer BC ==
--- NOTE | 2021-01-05 07:29 | CT ---
EXAMINATION TYPE: CT brain wo con DATE OF EXAM: 01/05/2021 COMPARISON: None HISTORY: Memory loss, dizziness, PATTERSON, numbness to feet and hands since Covid in March 2020 CT DLP: 945.[address] of the brain was performed. The ventricles, basal cisterns and sulci overlying the cerebral convexities demonstrate a normal appe arance. There is no evidence for intracranial hemorrhage or sulcal effacement. No mass effects are seen. Osseous calvarium is intact. If symptoms persist consider MRI as clinically warranted. IMPRESSION: 1. No acute intracranial process is seen at this time.
== END | disposition home or self-care (01) ==
LOC: RADCTMAIN 06:30
PROVIDERS: ATTEND Family Medicine
DX: R41.3 Other amnesia (principal)
CPT/HCPCS: 70450

== ENCOUNTER 2021-02-10 13:13 | Observation (INO) | payer BC ==
[2021-02-10] MEDS ORDERED: MORPHINE SULFATE 4 MG/ML SYRINGE IV STA (13:34)
[2021-02-10] MEDS ORDERED: SODIUM CHLORIDE 0.9% 1,000 ML IV STA (13:34)
[2021-02-10] MEDS ORDERED: ONDANSETRON 4 MG/2 ML VIAL IVP STA (13:35)
--- NOTE | 2021-02-10 13:38 | ED ---
General Adult HPI - General Chief complaint: Abdominal Pain Stated complaint: abd pain Time Seen by Provider: 02/10/21 13:25 Source: patient Mode of arrival: ambulatory Limitations: no limitations - History of Present Illness Initial comments: Dictation was produced using [employer] 3[employer] dictation software. please excuse any grammatical, word or spelling errors. Chief Complaint: 40-year-old female past medical history of cholecystectomy, ova han cyst removal presents to the emergency department for right lower quadrant abdominal pain History of Present Illness: Is a 40-year-old female she states that at 9 AM she began having severe pain to her right lower quadrant of her abdomen. She states it initially began as cramping and timing aches around her abdominal area. She states that it moved down to the right lower quadrant. Patient has no history of appendectomy. Patient has any constitutional symptoms. She states that her pain is severe. She does feel nauseated. She had several episodes of nonbilious nonbloody emesis. She denies any ALLERGIES. Patient takes control. The ROS documented in this emergency department record has been reviewed and confirmed by me. Those systems with pertinent positive or negative responses have been documented in the HPI. All other systems are other negative and/or noncontributory. PHYSICAL EXAM: General Impression: Alert and oriented x3, severe distress secondary to pain HEENT: Normocephalic atraumatic, extra-ocular movements intact, pupils equal and reactive to light bilaterally, mucous membranes moist. Cardiovascular: Heart regular rate and rhythm Chest: Able to complete full sentences, no retractions, no tachypnea Abdomen: abdomen soft, tenderness at McBurney's point, none rebound tenderness, negative Rovsing's Musculoskeletal: Pulses present and equal in all extremities, no peripheral edema Motor: no focal deficits noted Neurological: CN II-XII grossly intact, no focal motor or sensory deficits noted Skin: Intact with no visualized rashes Psych: Anxious ED course: 40-year-old female presents with severe right lower quadrant abdominal pain. Clinical presentation concerning for torus right ovary versus acute appendicitis. vital signs upon arrival are within acceptable limits. Patient reports history of ovarian cyst to the left ovary requiring surgical intervention. Laboratory evaluation obtained. No leukocytosis. Metabolic panel was within acceptable limits. Abdominal labs are negative. Computed tomography scan of the abdomen and pelvis was obtained showing no abnormalities. Appendix is visualized with no surrounding inflammatory changes. Reproductive organ shows no abnormalities. Patient reevaluated at bedside at 3:30 PM found to be in significant pain still. Patient given a dose of analgesics. Transvaginal ultrasound was ordered for concerns of torsed ovary. However I was notified by the glass installer technician that ovary was not able to be visualized given significant extensive peristalsing in adnexa. Patient reevaluated again at bedside still in continued pain. Clinical presentation consistent with intractable abdominal pain. No obvious source per case discussed with on-call general surgeon Dr. Leigh who is willing to accept patients care. gynocologist Dr. Kam is city call. Case is discussed with her. She agrees to be on consult with patient. - Related Data Home Medications Medication Instructions Recorded Confirmed Lo Loestrin Fe 1-10 1 tab PO DAILY 04/20/19 02/10/21 Cyanocobalamin (Vitamin B-12) 1,000 mcg PO DAILY 02/10/21 02/10/21 [Vitamin B-12] Allergies Allergy/AdvReac Type Severity Reaction Status Date / Time gluten Allergy Unknown Verified 02/10/21 13:57 Review of Systems ROS Statement: Those systems with pertinent positive or pertinent negative responses have been documented in the HPI. ROS Other: All systems not noted in ROS Statement are negative. Past Medical History Past Medical History: No Reported History Additional Past Medical History / Comment(s): gastritis, ovarian cysts History of Any Multi-Drug Resistant Organisms: None Reported Past Surgical History: No Surgical Hx Reported, Cholecystectomy Additional Past Surgical History / Comment(s): EGD, uterine wall and ovarian cyst removal Past Anesthesia/Blood Transfusion Reactions: No Reported Reaction Past Psychological History: No Psychological Hx Reported Smoking Status: Never smoker Past Alcohol Use History: Occasional Past Drug Use History: None Reported - Past Family History Mother Additional Family Medical History / Comment(s): TIAs Father Family Medical History: No Reported History General Exam Limitations: no limitations Course Vital Signs 02/10/21 13:14 Temperature 98.2 F Pulse Rate 94 Respiratory 18 Rate Blood Pressure 132/79 O2 Sat by Pulse 100 Oximetry Medical Decision Making - Lab Data Result diagrams: 02/10/21 13:47 02/10/21 13:47 Lab Results 02/10/21 02/10/21 Range/Units 13:47 13:47 WBC 10.0 (3.8-10.6) k/uL RBC 4.50 (3.80-5.40) m/uL Hgb 14.7 (11.4-16.0) gm/dL Hct 41.1 (34.0-46.0) % MCV 91.4 (80.0-100.0) fL MCH 32.7 (25.0-35.0) pg MCHC 35.8 (31.0-37.0) g/dL RDW 12.1 (11.5-15.5) % Plt Count 354 (150-450) k/uL MPV 7.6 Neutrophils % 77 % Lymphocytes % 15 % Monocytes % 4 % Eosinophils % 2 % Basophils % 1 % Neutrophils # 7.7 (1.3-7.7) k/uL Lymphocytes # 1.5 (1.0-4.8) k/uL Monocytes # 0.4 (0-1.0) k/uL Eosinophils # 0.2 (0-0.7) k/uL Basophils # 0.1 (0-0.2) k/uL Sodium 138 (137-145) mmol/L Potassium 4.0 (3.5-5.1) mmol/L Chloride 106 (98-107) mmol/L Carbon Dioxide 23 (22-30) mmol/L Anion Gap 9 mmol/L BUN 10 (7-17) mg/dL Creatinine 0.53 (0.52-1.04) mg/dL Est GFR (CKD-EPI)AfAm >90 (>60 ml/min/1.73 sqM) Est GFR (CKD-EPI)NonAf >90 (>60 ml/min/1.73 sqM) Glucose 108 H (74-99) mg/dL Calcium 9.4 (8.4-10.2) mg/dL Total Bilirubin 0.7 (0.2-1.3) mg/dL AST 74 H (14-36) U/L ALT 29 (4-34) U/L Alkaline Phosphatase 86 (38-126) U/L Total Protein 7.7 (6.3-8.2) g/dL Albumin 4.5 (3.5-5.0) g/dL Lipase 139 (23-300) U/L HCG, Quant <2.4 mIU/mL Disposition Clinical Impression: Intractable abdominal pain Disposition: ADMITTED IP TO THIS HOSP Condition: Fair Referrals: Dragan Boudreaux MD [Primary Care Provider] - 1-2 days
[2021-02-10 13:57] LABS: Basophils # (A) 0.1 k/uL (0-0.2); Basophils % (A) 1 %; Eosinophils # (A) 0.2 k/uL (0-0.7); Eosinophils % (A) 2 %; HCT 41.1 % (34.0-46.0); HGB 14.7 gm/dL (11.4-16.0); Lymphocytes # (A) 1.5 k/uL (1.0-4.8); Lymphocytes % (A) 15 %; MCH 32.7 pg (25.0-35.0); MCHC 35.8 g/dL (31.0-37.0); MCV 91.4 fL (80.0-100.0); Mean Platelet Volume 7.6; Monocytes # (A) 0.4 k/uL (0-1.0); Monocytes % (A) 4 %; Neutrophils # (A) 7.7 k/uL (1.3-7.7); Neutrophils % (A) 77 %; Platelet Count 354 k/uL (150-450); RDW 12.1 % (11.5-15.5)
[2021-02-10 14:09] LABS: ALT 29 U/L (4-34); AST 74 U/L (14-36); African American GFR (CKD) >90 (>60 ml/min/1.73 sqM); Albumin 4.5 g/dL (3.5-5.0); Alkaline Phosphatase 86 U/L (38-126); Anion Gap 9 mmol/L; Blood Urea Nitrogen 10 mg/dL (7-17); Calcium 9.4 mg/dL (8.4-10.2); Carbon Dioxide 23 mmol/L (22-30); Chloride 106 mmol/L (98-107); Glucose 108 mg/dL (74-99); Lipase 139 U/L (23-300); Non-African American GFR(CKD) >90 (>60 ml/min/1.73 sqM); Sodium 138 mmol/L (137-145); Total Bilirubin 0.7 mg/dL (0.2-1.3); Total Protein 7.7 g/dL (6.3-8.2)
[2021-02-10 14:25] LABS: HCG,Quantitative Serum <2.4 mIU/mL
--- NOTE | 2021-02-10 14:44 | CT ---
EXAMINATION TYPE: CT abdomen pelvis w con DATE OF EXAM: 02/10/2021 COMPARISON: None HISTORY: Right upper quadrant pain CT DLP: 717.7 mGycm Automated exposure control for dose reduction was used. TECHNIQUE: Helical acquisition of images from the lung bases through the pelvis have been completed. CONTRAST: Performed without Oral Contrast and with IV Contrast, patient injected with 100 mL of Isovue 300. FINDINGS: LUNG BASES: No significant abnormality is appreciated. AORTA: No significant abnormality is appreciated. LIVER/GB: Mild prominence of the intra and extrahepatic biliary ducts is likely due to postcholecyste ctomy change. PANCREAS: No significant abnormality is seen. SPLEEN: No significant abnormality is seen. ADRENALS: No significant abnormality is seen. KIDNEYS: No significant abnormality is seen. Delayed images were not carried out throughout the kidmi ys. REPRODUCTIVE ORGANS: No significant abnormality is seen BOWEL: No significant abnormality is seen. The appendix shows no inflammatory change. FREE AIR: No Free Air visible. ASCITES: None visible. PELVIC ADENOPATHY: None visualized. RETROPERITONEAL ADENOPATHY: No Retroperitoneal Adenopathy visible. URINARY BLADDER: No significant abnormality is seen. OSSEOUS STRUCTURES: No significant abnormality is seen. IMPRESSION: POSTOPERATIVE CHANGE
[2021-02-10] MEDS ORDERED: HYDROmorphone 0.5 MG/0.5 ML SYRINGE IVP STA (14:59)
--- NOTE | 2021-02-10 16:11 | US ---
EXAMINATION TYPE: US transvaginal DATE OF EXAM: 02/10/2021 COMPARISON: CT earlier today CLINICAL HISTORY: suspect ovarian torsion. TECHNIQUE: Transvaginal (TV Date of LMP: 02-10-21 EXAM MEASUREMENTS: Uterus: 5.3 x 1.9 x 3.3cm Endometrial Stripe: : 0.4cm Right Ovary: extensive peristalsing bowel in adnexa, ovary not visualized Left Ovary: extensive peristalsing bowel in adnexa, ovary not visualized 1. Uterus: wnl 2. Endometrium: wnl 3. Right Ovary: extensive peristalsing bowel in adnexa, ovary not visualized 4. Left Ovary: extensive peristalsing bowel in adnexa, ovary not visualized 5. Bilateral Adnexa: wnl 6. Posterior cul-de-sac: wnl Heterogeneous somewhat small size uterus redemonstrated. No free fluid in pelvis. Neither ovary clearly seen on ultrasound. No adnexal masses noted. IMPRESSION: As above.
[2021-02-10] MEDS ORDERED: HYDROmorphone 1 MG/ML 1 ML SYRINGE IVP STA (16:13)
[2021-02-10] MEDS ORDERED: HYDROmorphone 0.5 MG/0.5 ML SYRINGE IVP PRN (16:29)
[2021-02-10] MEDS ORDERED: ACETAMINOPHEN TAB 325 MG TAB PO PRN (16:29)
[2021-02-10] MEDS ORDERED: NALOXONE 0.4 MG/ML 1 ML VIAL IV PRN (16:29)
[2021-02-10] MEDS: SODIUM CHLORIDE 0.9% 1,000 ML IV SCH ×2 (16:31→23:26)
[2021-02-10 19:14] LABS: Appearance,Urine Cloudy (Clear); Bilirubin,Urine Negative (Negative); Blood,Urine Negative (Negative); Color,Urine Yellow; Glucose,Urine (UA) Negative (Negative); Ketones,Urine 2+ (Negative); Leukocyte Esterase,Urine Small (Negative); Nitrite,Urine Negative (Negative); PH, Urine 6.5 (5.0-8.0); Protein,Urine Negative (Negative); RBC,Urine 1 /hpf (0-5); Squamous Epithelial Cell,Urine 16 /hpf (0-4); Urobilinogen,Urine <2.0 mg/dL (<2.0); WBC,Urine 1 /hpf (0-5)
[2021-02-10 19:15] LABS: Specific Gravity,Urine >1.050 (1.001-1.035)
[2021-02-10] MEDS: ONDANSETRON 4 MG/2 ML VIAL IVP PRN (20:39)
[2021-02-10] MEDS: HYDROmorphone 1 MG/ML 1 ML SYRINGE IVP PRN ×2 (20:42→23:21)
[2021-02-11] MEDS: ONDANSETRON 4 MG/2 ML VIAL IVP PRN ×2 (02:22→08:23)
[2021-02-11] MEDS: HYDROmorphone 1 MG/ML 1 ML SYRINGE IVP PRN ×3 (02:24→08:30)
[2021-02-11] MEDS ORDERED: METOCLOPRAMIDE 5 MG/ML 2 ML VIAL ONE (04:49)
[2021-02-11] MEDS ORDERED: METOCLOPRAMIDE 5 MG/ML 2 ML VIAL IVP PRN (04:50)
[2021-02-11 04:59] LABS: Glucose,Whole Blood 94 mg/dL (75-99)
[2021-02-11] MEDS: SODIUM CHLORIDE 0.9% 1,000 ML IV SCH ×2 (05:27→17:35)
--- NOTE | 2021-02-11 10:22 | P.OBCN ---
History of Present Illness Consult date: 02/11/21 Requesting physician: Onel Leigh Reason for consult: other (Abdominal pain and vomiting) Chief complaint: Sudden onset vomiting and right upper quadrant pain History of present illness: This is a 40-year-old 1 para 1 woman who presented to the emergency department with sudden onset of severe right upper quadrant pain and vomiting. She reports she was going about her normal daily activities when she became suddenly nauseous. She had multiple episodes of vomiting and shortly thereafter developed significant right upper abdominal abdominal pain. She identifies no specific inciting event or exposure. Her gynecologic history is significant for one normal spontaneous vaginal d elivery 5 years ago. She is on an oral contraceptive pill that she uses continuously and therefore has minimal light menstruation. She does have a history of ovarian cysts in the past however this has not been an issue for her for several years since she has been on oral contraceptive pills. She follows regularly with a engineering department chair out of [facility]. Her evaluation in the emergency room was essentially negative. She had a negative hCG. Computed tomography scan of the abdomen and pelvis showed no abnormalities of the reproductive organs. A transvaginal ultrasound showed a small normal-appearing uterus however neither ovary could be positively identified secondary to peristalsing bowel. There are no adnexal masses or free fluid noted in the pelvis. There is no pelvic lymphadenopathy noted on computed tomography scan either. Currently she reports continuing to feel very poorly. She has ongoing nausea and is vomiting up small amounts of bile at this time. She describes her pain as being in the right upper abdomen from right of the umbilicus to up under her rib cage. This sometimes crosses to the left upper abdomen. She has no back pain. She has no dysuria or blood in the urine. She denies vaginal discharge or abnormal bleeding. She reports a history of "long covert". She has had ongoing significant symptoms with this including fatigue, respiratory issues and memory problems. She had her gallbladder removed approximately 2 years ago and has had some bowel changes since that time however no recent bowel changes. Specifically no dark tarry stools or bright red blood per rectum. She is complaining of feeling significantly bloated. She is passing gas.. Review of Systems Constitutional: Reports as per HPI Cardiovascular: Reports as per HPI Respiratory: Reports as per HPI Gastrointestinal: Reports abdominal pain, Reports belching, Reports bloating, Reports nausea, Reports vomiting, Denies BRBPR, Denies change in bowel habits, Denies coffee ground emesis, Denies constipation, Denies diarrhea, Denies dyspepsia, Denies heartburn, Denies melena Genitourinary: Denies abnormal vaginal bleeding, Denies dysuria, Denies flank pain, Denies genital sores, Denies hematuria, Denies kidney stones, Denies pelvic pain, Denies vaginal discharge, Denies vaginal itching, Denies vaginal odor Menstruation: Reports amenorrhea on BC Musculoskeletal: Reports low back pain Integumentary: Denies rash Neurological: Reports as per HPI Past Medical History Past Medical History: No Reported History Additional Past Medical History / Comment(s): gastritis, ovarian cysts, long COVID, 1 History of Any Multi-Drug Resistant Organisms: None Reported Past Surgical History: No Surgical Hx Reported, Cholecystectomy Additional Past Surgical History / Comment(s): EGD, uterine wall and ovarian cyst removal Past Anesthesia/Blood Transfusion Reactions: No Reported Reaction Past Psychological History: No Psychological Hx Reported Smoking Status: Never smoker Past Alcohol Use History: Occasional Past Drug Use History: None Reported - Past Family History Mother Additional Family Medical History / Comment(s): TIAs cysts hysterectomy Father Family Medical History: No Reported History Medications and Allergies Home Medications Medication Instructions Recorded Confirmed Type Lo Loestrin Fe 1-10 1 tab PO DAILY 04/20/19 02/10/21 History Cyanocobalamin (Vitamin B-12) 1,000 mcg PO DAILY 02/10/21 02/10/21 History [Vitamin B-12] Allergies Allergy/AdvReac Type Severity Reaction Status Date / Time gluten Allergy Unknown Verified 02/10/21 13:57 Exam Vital Signs Temp Pulse Pulse Resp BP BP Pulse Ox 02/11/21 08:06 98.2 F 84 15 114/74 98 02/11/21 02:16 97.4 F L 67 18 119/79 95 02/10/21 21:00 134/90 02/10/21 20:10 98.1 F 95 18 129/99 99 02/10/21 17:33 98.2 F 71 20 118/56 99 02/10/21 16:36 73 18 120/74 99 02/10/21 13:14 98.2 F 94 18 132/79 100 Intake and Output 02/10/21 02/11/21 02/11/21 22:59 06:59 14:59 Output Total 270 250 125 Balance -270 -250 -125 Output: Urine 120 200 125 Emesis 150 50 Other: Voiding Method Toilet Toilet # Voids 1 Weight 62.596 kg This is a pleasant but appearing female. HEENT exam is unremarkable. The lungs are clear bilaterally. Heart is of regular rate and rhythm. The abdomen is soft and nondistended with pain to palpation in the right upper quadr ant, epigastric and right abdomen lateral to the umbilicus. No lower quadrant pain or suprapubic pain. No CVAT. On bedside pelvic examination she has normal female external genitalia. No abnormal bleeding or discharge. On bimanual examination the uterus is small, freely mobile and in the midline. There are no palpable adnexal masses. She has no pain on pelvic examination. Cervical motion tenderness. Results Result Diagrams: 02/10/21 13:47 02/10/21 13:47 Abnormal Lab Results - Last 24 Hours (Table) 02/10/21 02/10/21 Range/Units 13:25 13:47 Glucose 108 H (74-99) mg/dL AST 74 H (14-36) U/L Urine Appearance Cloudy H (Clear) Ur Specific [place] >1.050 H (1.001-1.035) Urine Ketones 2+ H (Negative) Ur Leukocyte Esterase Small H (Negative) Ur Squamous Epith Cells 16 H (0-4) /hpf CT scan - abdomen: report reviewed CT scan - pelvis: report reviewed US - abdomen: report reviewed Assessment and Plan (1) Nausea & vomiting Current Visit: Yes Status: Acute Code(s): R11.2 - NAUSEA WITH VOMITING, UNSPECIFIED SNOMED Code(s): 57675737 (2) Intractable abdominal pain Current Visit: Yes Status: Acute Code(s): R10.9 - UNSPECIFIED ABDOMINAL PAIN SNOMED Code(s): 10770699 Plan: This is a 40-year-old 1 para 1 woman with an approximately 18 hour history of severe nausea, vomiting and right upper abdominal pain. This does not appear to be a primary gynecologic etiology. She has a normal pelvic exam. There are no findings of pelvic abnormalities on imaging studies. She is on oral contraceptive pills for ovarian cyst suppression. She reports this does not feel like her typical ovarian cyst pain that she has had in the past. Should she ultimately require diagnostic laparoscopy and happy to be on standby to further evaluate as necessary. Thank you for this consultation and I will follow along. Time with Patient: Greater than 30
[2021-02-11] MEDS ORDERED: Acetaminophen-Codeine 300-30mg TAB PO PRN (10:48)
--- NOTE | 2021-02-11 12:49 | P.GSHP ---
History of Present Illness H&P Date: 02/11/21 Chief Complaint: Severe abdominal pain Is a 40-year-old female was admitted through the emergency room with complaints of intractable right-sided abdominal pain. Patient has many complaints of abdominal pain in the right lower quadrant suprapubic area. She is appears history of cholecystectomy. She states she did have some upper back pain which reminded her of her previous gallbladder pain. Today her pain is mainly in the right lower quadrant. Past Medical History Past Medical History: No Reported History Additional Past Medical History / Comment(s): gastritis, ovarian cysts, long COVID, 1 History of Any Multi-Drug Resistant Organisms: None Reported Past Surgical History: No Surgical Hx Reported, Cholecystectomy Additional Past Surgical History / Comment(s): EGD, uterine wall and ovarian cyst removal Past Anesthesia/Blood Transfusion Reactions: No Reported Reaction Past Psychological History: No Psychological Hx Reported Smoking Status: Never smoker Past Alcohol Use History: Occasional Past Drug Use History: None Reported - Past Family History Mother Additional Family Medical History / Comment(s): TIAs cysts hysterectomy Father Family Medical History: No Reported History Medications and Allergies Home Medications Medication Instructions Recorded Confirmed Type Lo Loestrin Fe 1-10 1 tab PO DAILY 04/20/19 02/10/21 History Cyanocobalamin (Vitamin B-12) 1,000 mcg PO DAILY 02/10/21 02/10/21 History [Vitamin B-12] Allergies Allergy/AdvReac Type Severity Reaction Status Date / Time gluten Allergy Unknown Verified 02/10/21 13:57 Surgical - Exam Vital Signs Temp Pulse Resp BP Pulse Ox 98.2 F 94 18 132/79 100 02/10/21 13:14 02/10/21 13:14 02/10/21 13:14 02/10/21 13:14 02/10/21 13:14 - General well developed, well nourished, no distress - Eyes PERRL - ENT normal pinna - Neck no masses - Respiratory normal expansion - Cardiovascular Rhythm: regular - Abdomen Mild tenderness right lower quadrant and suprapubic area Abdomen: soft Results - Labs 02/10/21 13:47 02/10/21 13:47 Abnormal Lab Results - Last 24 Hours (Table) 02/10/21 02/10/21 Range/Units 13:25 13:47 Glucose 108 H (74-99) mg/dL AST 74 H (14-36) U/L Urine Appearance Cloudy H (Clear) Ur Specific [place] >1.050 H (1.001-1.035) Urine Ketones 2+ H (Negative) Ur Leukocyte Esterase Small H (Negative) Ur Squamous Epith Cells 16 H (0-4) /hpf Diabetes panel 02/10/21 Range/Units 13:47 Sodium 138 (137-145) mmol/L Potassium 4.0 (3.5-5.1) mmol/L Chloride 106 (98-107) mmol/L Carbon Dioxide 23 (22-30) mmol/L BUN 10 (7-17) mg/dL Creatinine 0.53 (0.52-1.04) mg/dL Glucose 108 H (74-99) mg/dL Calcium 9.4 (8.4-10.2) mg/dL AST 74 H (14-36) U/L ALT 29 (4-34) U/L Alkaline Phosphatase 86 (38-126) U/L Total Protein 7.7 (6.3-8.2) g/dL Albumin 4.5 (3.5-5.0) g/dL Calcium panel 02/10/21 Range/Units 13:47 Calcium 9.4 (8.4-10.2) mg/dL Albumin 4.5 (3.5-5.0) g/dL Pituitary panel 02/10/21 Range/Units 13:47 Sodium 138 (137-145) mmol/L Potassium 4.0 (3.5-5.1) mmol/L Chloride 106 (98-107) mmol/L Carbon Dioxide 23 (22-30) mmol/L BUN 10 (7-17) mg/dL Creatinine 0.53 (0.52-1.04) mg/dL Glucose 108 H (74-99) mg/dL Calcium 9.4 (8.4-10.2) mg/dL Adrenal panel 02/10/21 Range/Units 13:47 Sodium 138 (137-145) mmol/L Potassium 4.0 (3.5-5.1) mmol/L Chloride 106 (98-107) mmol/L Carbon Dioxide 23 (22-30) mmol/L BUN 10 (7-17) mg/dL Creatinine 0.53 (0.52-1.04) mg/dL Glucose 108 H (74-99) mg/dL Calcium 9.4 (8.4-10.2) mg/dL Total Bilirubin 0.7 (0.2-1.3) mg/dL AST 74 H (14-36) U/L ALT 29 (4-34) U/L Alkaline Phosphatase 86 (38-126) U/L Total Protein 7.7 (6.3-8.2) g/dL Albumin 4.5 (3.5-5.0) g/dL Assessment and Plan Assessment: Right lower quadrant abdominal pain. Unsure of etiology. Her CAT scan was essentially normal. She'll be observed.
[2021-02-11] MEDS ORDERED: MAG HYDROX/AL HYDROX/SIMETH 30 ML, HYOSCYAMINE ELIXIR 10 ML, LIDOCAINE VISCOUS 2% 10 ML PO ONE ×3 (17:21)
[2021-02-11] MEDS ORDERED: PROCHLORPERAZINE INJ 10 MG/2 ML VIAL IVP PRN (17:39)
[2021-02-11] MEDS ORDERED: TRIMETHOBENZAMIDE 100 MG/ML 2 ML VIAL IM STA (17:52)
--- NOTE | 2021-02-11 18:21 | P.CONS ---
History of Present Illness - Reason for Consult Consult date: 02/11/21 Medical management Requesting physician: Onel Leigh - Chief Complaint RLQ abdominal pain - History of Present Illness History of Presenting Illness: Patient is a 40-year-old female with a past medical history of gastritis, ovarian cysts, GERD, and Covid long haulers syndrome. Patient presented to the hospital on 02/10/21 with a chief complaint of abdominal pain, nausea, and vomiting. CT abdomen and pelvis with contrast negative for acute intra- abdominal/pelvic abnormalities. Transvaginal ultrasound showing normal uterus, endometrium, adnexa and posterior cul-de-sac. Labs reviewed. CBC unremarkable. BMP unremarkable. Liver profile revealing a slightly elevated AST of 74. Lipase normal findings. HCG Quant less than 2.4. And urinalysis negative for blood or infection. Patient seen and fully evaluated by PAYABLE PROCESSOR reporting normal pelvic exam with no gynecological abnormalities reported at this time. Patient was admitted under Gen. surgery team under Dr. Leigh and we have been consul [facility] for medical evaluation and continued medical managment of this patient. Physical exam was completed patient reports abdominal pain, nausea, and vomiting beginning suddenly yesterday morning around 9 AM. Patient reports initially feeling generalized abdominal pain and bloating with pain in the right upper quadrant, upon assessment patient reporting tenderness and pain to right upper, umbilical and right lower quadrants. She with hyperactive bowel sounds throughout. Patient reports nausea with persistent vomiting beginning yesterday at 9 AM and difficulties passing flatus. Patient reports prior to this she has had a normal appetite, normal bowel movements, and denies any recent fevers or infections. 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 Patient denies any other complaints or concerns at this time including headache, lightheadedness, dizziness, chest pain, palpitations, shortness of breath, cough or congestion, diarrhea, hematochezia, or melena. Review of systems: Pertinent positives and negatives as discussed in HPI, a complete review of systems was performed and all other systems are negative. Physical exam: Vital signs reviewed and stable. General: Nontoxic, no distress and appears stated age. Derm: Skin warm and dry, normal coloration for ethnicity. Head: Atraumatic, normocephalic and symmetric. Eyes: EOMs intact, no lid lag, and anicteric sclera Mouth: no lip lesions, mucus membranes moist Cardiovascular: regular rate and rhythm with normal S1S2, no murmur, positive posterior tibial pulses bilaterally, and cap refill < 2 seconds. Lungs: Respirations even, regular, and unlabored on room air. Lungs CTA bilaterally, no rhonchi, no rales, no wheezing, and no accessory muscle usage. Abdominal: hyperactive bowel sounds throughout all quadrants, abdomen soft with tenderness reported to right upper, right lower, and umbilical region. No guarding, and no appreciable organomegaly Ext: ROM intact. No gross muscle atrophy, no edema, no contractures Neuro: Speech clear, face symmetrical and CN II-XII grossly intact with no noted focal neuro deficits Psych: Alert and oriented to person, place, time, and situation. Appropriate and pleasant affect. Assessment and Plan of Care: Abdominal Pain with Intractable Nausea and Vomiting, unclear etiology possibly secondary to viral gastritis or GERD -GI cocktail to be administered 1 dose consisting of Maalox, simethicone, hyoscyamine elixir, and viscous lidocaine. -Tigan x one dose -Discontinue Zofran and place on PRN Compazine for nausea and/or vomiting -Initiate daily Protonix 40 mg. -We will repeat liver profile with a.m. labs as patient did have slightly elevated AST when compared to previous labs drawn on 12/27/20 with AST of 19 and now 74. -We will obtain a vitamin B12 level to ensure nausea and vomiting is not adverse effect of medication. -We will continue to monitor with repeat a.m. labs consisting of CBC and CMP. Thank you for allowing us to participate in the care of this pleasant patient. Do not hesitate to contact us with questions. Someone can be reached from the [facility]Note 3] hospitalist group all hours of the day at [phone] or via [employer]. Past Medical History Past Medical History: No Reported History Additional Past Medical History / Comment(s): gastritis, ovarian cysts, long COVID, 1 History of Any Multi-Drug Resistant Organisms: None Reported Past Surgical History: No Surgical Hx Reported, Cholecystectomy Additional Past Surgical History / Comment(s): EGD, uterine wall and ovarian cyst removal Past Anesthesia/Blood Transfusion Reactions: No Reported Reaction Past Psychological History: No Psychological Hx Reported Smoking Status: Never smoker Past Alcohol Use History: Occasional Past Drug Use History: None Reported - Past Family History Mother Additional Family Medical History / Comment(s): TIAs cysts hysterectomy Father Family Medical History: No Reported History Medications and Allergies Home Medications Medication Instructions Recorded Confirmed Type Lo Loestrin Fe 1-10 1 tab PO DAILY 04/20/19 02/10/21 History Cyanocobalamin (Vitamin B-12) 1,000 mcg PO DAILY 02/10/21 02/10/21 History [Vitamin B-12] Allergies Allergy/AdvReac Type Severity Reaction Status Date / Time gluten Allergy Unknown Verified 02/10/21 13:57 Physical Exam Vitals: Vital Signs Temp Pulse Pulse Resp BP BP Pulse Ox 02/11/21 08:06 98.2 F 84 15 114/74 98 02/11/21 02:16 97.4 F L 67 18 119/79 95 02/10/21 21:00 134/90 02/10/21 20:10 98.1 F 95 18 129/99 99 02/10/21 17:33 98.2 F 71 20 118/56 99 02/10/21 16:36 73 18 120/74 99 Intake and Output 02/10/21 02/11/21 02/11/21 22:59 06:59 14:59 Intake Total 118 Output Total 270 250 225 Balance -270 -250 -107 Intake: Oral 118 Output: Urine 120 200 225 Emesis 150 50 Other: Voiding Method Toilet Toilet # Voids 1 Weight 62.596 kg Results CBC & Chem 7: 02/10/21 13:47 02/10/21 13:47 Labs: Abnormal Lab Results - Last 24 Hours (Table) 02/10/21 02/10/21 Range/Units 13:25 13:47 Glucose 108 H (74-99) mg/dL AST 74 H (14-36) U/L Urine Appearance Cloudy H (Clear) Ur Specific [place] >1.050 H (1.001-1.035) Urine Ketones 2+ H (Negative) Ur Leukocyte Esterase Small H (Negative) Ur Squamous Epith Cells 16 H (0-4) /hpf
[2021-02-11] MEDS: MAG HYDROX/AL HYDROX/SIMETH 30 ML CUP PO PRN (21:57)
[2021-02-11] MEDS ORDERED: MAG HYDROX/AL HYDROX/SIMETH 30 ML CUP ONE (23:59)
[2021-02-11] MEDS ORDERED: PROCHLORPERAZINE INJ 10 MG/2 ML VIAL ONE (23:59)
[2021-02-11] MEDS ORDERED: HYDROmorphone 1 MG/ML 1 ML SYRINGE ONE ×2 (23:59)
[2021-02-11] MEDS ORDERED: SODIUM CHLORIDE 0.9% 1,000 ML BAG ONE (23:59)
[2021-02-12] MEDS: SIMETHICONE 80 MG CHEWABLE PO SCH ×2 (04:53→13:58)
[2021-02-12] MEDS: MAG HYDROX/AL HYDROX/SIMETH 30 ML CUP PO PRN ×3 (04:53→14:22)
[2021-02-12] MEDS: SODIUM CHLORIDE 0.9% 1,000 ML IV SCH ×2 (04:53→06:47)
[2021-02-12 06:04] LABS: HCT 35.7 % (34.0-46.0); MCH 32.1 pg (25.0-35.0); MCHC 33.7 g/dL (31.0-37.0); MCV 95.2 fL (80.0-100.0); Platelet Count 251 k/uL (150-450); RBC 3.75 m/uL (3.80-5.40); RDW 11.6 % (11.5-15.5); WBC 7.7 k/uL (3.8-10.6)
[2021-02-12 06:21] LABS: ALT 99 U/L (4-34); AST 123 U/L (14-36); African American GFR (CKD) >90 (>60 ml/min/1.73 sqM); Albumin 3.2 g/dL (3.5-5.0); Alkaline Phosphatase 106 U/L (38-126); Anion Gap 6 mmol/L; Blood Urea Nitrogen 4 mg/dL (7-17); Calcium 7.6 mg/dL (8.4-10.2); Carbon Dioxide 21 mmol/L (22-30); Chloride 109 mmol/L (98-107); Glucose 93 mg/dL (74-99); Non-African American GFR(CKD) >90 (>60 ml/min/1.73 sqM); Sodium 136 mmol/L (137-145); Total Bilirubin 1.1 mg/dL (0.2-1.3); Total Protein 5.9 g/dL (6.3-8.2)
[2021-02-12] MEDS ORDERED: PANTOPRAZOLE 40 MG TABLET PO SCH (07:30)
[2021-02-12 08:48] VITALS: BP 128/81; PULSE 85; RESP 16; TEMP 98.6
--- NOTE | 2021-02-12 09:27 | P.PN ---
Subjective Progress Note Date: 02/12/21 History of Presenting Illness: Patient is a 40-year-old female with a past medical history of gastritis, ovarian cysts, GERD, and Covid long haulers syndrome. Patient presented to the hospital on 02/10/21 with a chief complaint of abdominal pain, nausea, and vomiting. CT abdomen and pelvis with contrast negative for acute intra-abdominal/pelvic abnormalities. Transvaginal ultrasound showing normal uterus, endometrium, adnexa and posterior cul-de-sac. Labs reviewed. CBC unremarkable. BMP unremarkable. Liver profile revealing a slightly elevated AST of 74. Lipase normal findings. HCG Quant less than 2.4. And urinalysis negative for blood or infection. Patient seen and fully evaluated by DIMENSION QUARRY SUPERVISOR reporting normal pelvic exam with no gynecological abnormalities reported at this time. Patient was admitted under Gen. surgery team under Dr. Leigh and we have been consulted for medical evaluation and continued medical managment of this patient. Physical exam was completed patient reports abdominal pain, nausea, and vomiting beginning suddenly yesterday morning around 9 AM. Patient reports initially feeling generalized abdominal pain a1 accompanied by bloating and abdominal pain in the right upper quadrant. Initial assessment on 02/11/21 patient reporting tenderness and pain to right upper, umbilical and right lower quadrants. She with hyperactive bowel sounds throughout. Patient reports nausea with persistent vomiting beginning yesterday at 9 AM and difficulties passing flatus. Patient reports prior to this she has had a normal appetite, normal bowel movements, and denies any recent fevers or infections. 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 Patient denies any other complaints or concerns at this time including headache, lightheadedness, dizziness, chest pain, palpitations, shortness of breath, cough or congestion, diarrhea, hematochezia, or melena. 02/12/21: Patient reports complete resolution of abdominal pain, nausea, and vomiting status post receiving GI cocktail given yesterday evening. Pt states, " it worked like magic". Patient reports she has since been tolerating oral intake and denies any further episodes of nausea or vomiting. She reports her stomach remains "a little sore from all the vomiting" but denies any increases in pain with palpation or movement. Patient denies having any other complaints and reports feeling great this morning. Patient did have further slight elevation in her liver function with AST increasing to 123 and ALT rate increasing to 99...this is likely reactive secondary to patient's 2 day course of persistent nausea and vomiting. Prescriptions sent for protonix and carafate. Physical exam: Vital signs reviewed and stable. General: Nontoxic, no distress and appears stated age. Derm: Skin warm and dry, normal coloration for ethnicity. Head: Atraumatic, normocephalic and symmetric. Eyes: EOMs intact, no lid lag, and anicteric sclera Mouth: no lip lesions, mucus membranes moist Cardiovascular: regular rate and rhythm with normal S1S2, no murmur, positive posterior tibial pulses bilaterally, and cap refill < 2 seconds. Lungs: Respirations even, regular, and unlabored on room air. Lungs CTA bilaterally, no rhonchi, no rales, no wheezing, and no accessory muscle usage. Abdominal: Abdomen soft non tender to palpation. No guarding, and no appreciable organomegaly Ext: ROM intact. No gross muscle atrophy, no edema, no contractures Neuro: Speech clear, face symmetrical and CN II-XII grossly intact with no noted focal neuro deficits Psych: Alert and oriented to person, place, time, and situation. Appropriate and pleasant affect. Assessment and Plan of Care: Abdominal Pain with Intractable Nausea and Vomiting, Likely GERD...Resolved -GI cocktail to be administered 1 dose administered yesterday afternoon consisting of Maalox, simethicone, hyoscyamine elixir, and viscous lidocaine reportedly resolved all pain, nausea, and vomiting. -PRN Compazine for nausea and/or vomiting -Continue daily Protonix 40 mg. -Carafate 1 g before meals at bedtime -Patient did have further slight elevation in her liver function with AST increasing to 123 and ALT rate increasing to 99...this is likely reactive secondary to patient's 2 day course of persistent nausea and vomiting which has not resolved. -Patient appears medically stable at this time, recommend considering outpatient follow up with PCP and having a CMP drawn in 3-4 days to ensure liver enzymes returned to normal. Thank you for allowing us to participate in the care of this pleasant patient. Do not hesitate to contact us with questions. Someone can be reached from the [facility] [facility] hospitalist group all hours of the day at [phone] or via perfect serve. Objective - Vital Signs Vital signs: Vital Signs Temp 98.6 F 02/12/21 08:28 Pulse 85 02/12/21 08:28 Resp 16 02/12/21 08:28 BP 128/81 02/12/21 08:28 Pulse Ox 96 02/12/21 08:28 Intake & Output 02/11/21 02/12/21 02/12/21 18:59 06:59 18:59 Intake Total 418 540 Output Total 1000 500 Balance -582 40 Intake: Oral 418 540 Output: Urine 1000 500 Other: Voiding Method Toilet Toilet # Voids 1 - Labs CBC & Chem 7: 02/12/21 04:49 02/12/21 04:49 Labs: Abnormal Lab Results - Last 24 Hours (Table) 02/12/21 02/12/21 Range/Units 04:49 04:49 RBC 3.75 L (3.80-5.40) m/uL Sodium 136 L (137-145) mmol/L Chloride 109 H (98-107) mmol/L Carbon Dioxide 21 L (22-30) mmol/L BUN 4 L (7-17) mg/dL Creatinine 0.50 L (0.52-1.04) mg/dL Calcium 7.6 L (8.4-10.2) mg/dL AST 123 H (14-36) U/L ALT 99 H (4-34) U/L Total Protein 5.9 L (6.3-8.2) g/dL Albumin 3.2 L (3.5-5.0) g/dL
--- NOTE | 2021-02-12 11:58 | P.PN ---
Progress Note - Text Progress Note Date: 02/12/21 Patient is seen today. She is sitting up by the bedside and appears much improved from yesterday. She is going to try a regular diet. She's had no further episodes of vomiting since the GI cocktail was given yesterday. She did have a slight elevation of her LFTs thought to be reactionary from all the nausea and vomiting. No new gynecologic complaints. She stable for discharge home from a ORDNANCE ARTIFICER HELPER standpoint. Thank you for this kind consultation. Should patient require any further follow-up in the outpatient setting please don't hesitate to contact the office to arrange.
--- NOTE | 2021-02-12 12:37 | P.DS ---
Providers Date of admission: 02/10/21 16:39 Expected date of discharge: 02/12/21 Attending physician: Onel Leigh Consults: 02/10/21 16:28 Consult Physician Routine Consulting Provider: Marcie Kam Consult Reason/Comments: severe abdominal pain, no obvious source Do you want consulting provider notified?: Already Contacted 02/11/21 12:49 Consult Physician Routine Consulting Provider: Sofya Calderon Consult Reason/Comments: Medical management Do you want consulting provider notified?: Yes Primary care physician: Dragan Braga [facility] Course: Is a 40-year-old female who was admitted to the hospital for severe intractable abdominal pain mainly on the right side. Patient was noted for observation. She was treated conservatively. Her pain did improve. She was discharged home will be scheduled for outpatient EGD. Patient Condition at Discharge: Good Plan - Discharge Summary Discharge Rx Participant: Yes New Discharge Prescriptions: New Prochlorperazine [Compazine] 10 mg PO Q6H PRN #30 tab PRN Reason: Nausea And Vomiting Pantoprazole [Protonix] 40 mg PO AC-BRKFST 30 Days #30 tab Sucralfate [Carafate] 1 gm PO ACHS 30 Days #120 tablet Continue Lo Loestrin Fe 1-10 1 tab PO DAILY Cyanocobalamin (Vitamin B-12) [Vitamin B-12] 1,000 mcg PO DAILY Discharge Medication List Lo Loestrin Fe 1-10 1 tab PO DAILY 04/20/19 [History] Cyanocobalamin (Vitamin B-12) [Vitamin B-12] 1,000 mcg PO DAILY 02/10/21 [History] Pantoprazole [Protonix] 40 mg PO AC-BRKFST 30 Days #30 tab 02/12/21 [Rx] Prochlorperazine [Compazine] 10 mg PO Q6H PRN #30 tab 02/12/21 [Rx] Sucralfate [Carafate] 1 gm PO ACHS 30 Days #120 tablet 02/12/21 [Rx] Follow up Appointment(s)/Referral(s): Dragan Boudreaux MD [Primary Care Provider] - 1-2 days Onel Leigh MD [STAFF PHYSICIAN] - 1 Week Discharge Disposition: HOME SELF-CARE
== END 2021-02-12 14:38 | disposition home or self-care (01) ==
LOC: EC 13:13 → 6PED 16:39
PROVIDERS: ADMIT Surgery; ATTEND Surgery
DX: R10.31 Right lower quadrant pain (principal); R11.2 Nausea with vomiting, unspecified; Z90.49 Acquired absence of other specified parts of digestive tract; M54.6 Pain in thoracic spine; Z20.822 Contact with and (suspected) exposure to COVID-19; R74.01 Elevation of levels of liver transaminase levels
CPT/HCPCS: 96361 ×3; 96375 ×2; 96376 ×3; 96374; 99285; 36415; 80053 ×2; 82607; 83690; 85025; 85027; 81001; 84702; 87635; 76830; 74177; G0378 ×3; J2270; J0780; J2765; J2405 ×2; J1170 ×3; Q9967

== ENCOUNTER → 2021-03-01 | Outpatient (CLI) | payer BC ==
--- NOTE | 2021-03-01 12:10 | MR ---
EXAMINATION TYPE: MR brain wo/w con DATE OF EXAM: 03/01/2021 COMPARISON: CT brain 01/05/2021 HISTORY: Post COVID cognitive impairment, foggy memory TECHNIQUE: Multiplanar, multisequence images of the brain and brainstem is performed without and with IV contras t, utilizing 6.5 mL intravenous Gadavist . FINDINGS: Diffusion weighted images demonstrate no evidence of a recent infarct or other diffusion ab normality. There is no extra-axial fluid collection. . Nonspecific focal hyperintensity present with in the deep white matter on inversion recovery T2-weighted sequences, left frontal focus axial image 18 measures only 3 mm, axial image #19 in the periventricular white matter measures approximately 3 m m. The ventricular system and cisternal spaces are normal in size and appearance. The brain volume i s age appropriate. Midline structures demonstrate normal morphology. The craniocervical junction appears within normal limits. Post contrast images demonstrate no abnormal enhancement. The dural venous sinuses appear pa tent. The visualized sinuses are showing bilateral mucosal disease in the maxillary sinuses, ethmoid air cells, and the globes are intact. IMPRESSION: Sinus disease. Nonspecific white matter demyelination of questionable clinical significan ce. No other significant brain abnormality is evident.
== END | disposition home or self-care (01) ==
LOC: RADMRIMAIN 09:32
PROVIDERS: ATTEND Psychiatry & Neurology Neurology
DX: J32.9 Chronic sinusitis, unspecified (principal); G61.81 Chronic inflammatory demyelinating polyneuritis
CPT/HCPCS: 70553; A9585

== ENCOUNTER → 2021-03-13 | Outpatient (CLI) | payer BC ==
[2021-03-13 19:14] LABS: EBV-EA (IgG) <0.2 AI; EBV-EBNA(IgG) >8.0 AI; EBV-VCA (IgG) >8.0 AI; EBV-VCA (IgM) 0.6 AI
[2021-03-13 22:38] LABS: Alpha Fetoprotein, Tumor Mkr <1.82 ng/mL (0.00-7.90)
== END | disposition home or self-care (01) ==
LOC: LABWHC1 09:07
PROVIDERS: ATTEND Nurse Practitioner Adult Health
DX: R74.01 Elevation of levels of liver transaminase levels (principal)
CPT/HCPCS: 36415; 82105; 82977; 86644; 86645; 86663; 86664; 86665

== ENCOUNTER → 2021-04-05 | Outpatient (CLI) | payer BC ==
[2021-04-06 02:41] LABS: ALT 16 U/L (8-44); AST 17 U/L (13-35); Albumin 4.2 g/dL (3.8-4.9); Albumin/Globulin Ratio 1.58 (1.60-3.17); Alkaline Phosphatase 70 U/L (41-126); Bilirubin, Conjugated <0.20 mg/dL (0.20-0.40); Globulin 2.7 g/dL (1.6-3.3); Total Bilirubin <0.20 mg/dL (0.30-1.20); Total Protein 6.9 g/dL (6.2-8.2)
[2021-04-06 04:57] LABS: Anti-Smith Ab Interp NEGATIVE (NEGATIVE)
[2021-04-06 05:04] LABS: Ceruloplasmin 39.8 mg/dL (20.0-60.0)
== END | disposition home or self-care (01) ==
LOC: LABWHC1 13:18
DX: R74.8 Abnormal levels of other serum enzymes (principal)
CPT/HCPCS: 36415; 80076; 82103; 82104; 82390; 83516; 86038; 86235

== ENCOUNTER → 2021-04-26 | Outpatient (CLI) | payer BC ==
--- NOTE | 2021-04-26 08:14 | US ---
EXAMINATION TYPE: US abdomen complete DATE OF EXAM: 04/26/2021 COMPARISON: NONE CLINICAL HISTORY: R74.8 Elevated liver enzymes. Abdominal pain EXAM MEASUREMENTS: Liver Length: 13.5 cm Gallbladder Wall: Surgically absent CBD: 0.3 cm Spleen: 11.0 cm Right Kidney: 11.6x4.7x5.2 cm Left Kidney: 10.8x4.6x6.8 cm Pancreas: Tail obscured by overlying bowel gas Liver: wnl Gallbladder: Surgically absent CBD: wnl Spleen: wnl Right Kidney: wnl Left Kidney: wnl Upper IVC: wnl Abd Aorta: wnl The liver is homogenous. The intrahepatic portion of the IVC and proximal abdominal aorta are within normal limits. The gallbladder is been surgically removed. Common bile duct is unremarkable. The vi sualized portions of the pancreas are homogenous. The spleen is unremarkable. Kidneys are symmetric and free of hydronephrosis. No renal lesions are seen. IMPRESSION: 1. Postcholecystectomy
== END | disposition home or self-care (01) ==
LOC: RADUSWWP 07:11
PROVIDERS: ATTEND Obstetrics & Gynecology
DX: K91.5 Postcholecystectomy syndrome (principal)
CPT/HCPCS: 76700; 93976

== ENCOUNTER → 2021-04-26 | Outpatient (CLI) | payer BC ==
--- NOTE | 2021-04-26 08:14 | US ---
EXAMINATION TYPE: US pelvic complete DATE OF EXAM: 04/26/2021 COMPARISON: NONE CLINICAL HISTORY: Abnormal levels of other serum enzymes R74.8. TECHNIQUE: Transabdominal (TA). Date of LMP: ?? EXAM MEASUREMENTS: Uterus: 5.2x2.9x1.8 cm Endometrial Stripe: 0.3 cm Right Ovary: 2.5x1.5x1.3 cm Left Ovary: 1.8x1.4x1.1 cm 1. Uterus: Anteverted wnl 2. Endometrium: wnl 3. Right Ovary: wnl 4. Left Ovary: wnl 5. Bilateral Adnexa: wnl 6. Posterior cul-de-sac: wnl IMPRESSION: No acute process.
== END | disposition home or self-care (01) ==
LOC: RADUSWWP 07:06
DX: R10.9 Unspecified abdominal pain (principal); R94.5 Abnormal results of liver function studies
CPT/HCPCS: 76856

== ENCOUNTER 2022-11-23 14:57 | Observation (INO) | payer BC ==
[2022-11-23 15:41] LABS: Glucose,Whole Blood 97 mg/dL (70-110)
--- NOTE | 2022-11-23 15:55 | ED ---
General Adult HPI - General Chief complaint: Neuro Symptoms/Deficit Stated complaint: Lt side body numbness Time Seen by Provider: 11/23/22 15:52 Source: patient Mode of arrival: ambulatory Limitations: no limitations - History of Present Illness Initial comments: This patient is a 42-year-old woman who presents to have evaluation of constellation of symptoms that it started approximately 4 hours prior to arrival here. The patient states that she noticed that her left face and left arm were feeling numb and somewhat weak. She also was having a change in her speech. It did not seem to be is clear. The patient had not noticed any headache. The symptoms have improved somewhat from where they were earlier. No fever or chills. No chest pain, dyspnea, diaphoresis, nausea or vomiting. Onset/Timin -: hour(s) Location: face, left, upper extremity Radiation: non-radiation Severity scale (1-10): 0 Consistency: now resolved Improves with: none Worsens with: none Associated Symptoms: other (Dysarthria) Treatments Prior to Arrival: none - Related Data Home Medications Medication Instructions Recorded Confirmed Lo Loestrin Fe 1-10 1 tab PO DAILY@0700 04/20/19 11/23/22 Dextroamphetamine/Amphetamine 15 mg PO DAILY@69911/23/22 11/23/22 [Adderall Xr 15 mg Capsule] Ethosuximide 250 mg PO BID@08,199911/23/22 11/23/22 Allergies Allergy/AdvReac Type Severity Reaction Status Date / Time gluten Allergy Unknown Verified 11/23/22 15:27 Review of Systems ROS Statement: Those systems with pertinent positive or pertinent negative responses have been documented in the HPI. ROS Other: All systems not noted in ROS Statement are negative. Constitutional: Denies: fever, chills Eyes: Denies: eye pain, vision change ENT: Denies: hearing loss Respiratory: Denies: cough, dyspnea Cardiovascular: Denies: chest pain, palpitations, syncope Gastrointestinal: Denies: abdominal pain, vomiting, diarrhea Genitourinary: Denies: dysuria, hematuria Musculoskeletal: Denies: back pain Skin: Denies: rash Neurological: Reports: weakness, numbness. Denies: headache, confusion Past Medical History Past Medical History: Seizure Disorder Additional Past Medical History / Comment(s): gastritis, ovarian cysts, long COVID, 1 History of Any Multi-Drug Resistant Organisms: None Reported Past Surgical History: Cholecystectomy Additional Past Surgical History / Comment(s): EGD, uterine wall and ovarian cyst removal Past Anesthesia/Blood Transfusion Reactions: No Reported Reaction Past Psychological History: No Psychological Hx Reported Smoking Status: Never smoker Past Alcohol Use History: Occasional Past Drug Use History: None Reported - Past Family History Mother Additional Family Medical History / Comment(s): TIAs cysts hysterectomy Father Family Medical History: No Reported History General Exam Limitations: no limitations General appearance: alert, in no apparent distress Head exam: Present: atraumatic, normocephalic Eye exam: Present: normal appearance. Absent: scleral icterus, conjunctival injection ENT exam: Present: normal oropharynx Neck exam: Present: normal inspection, full ROM Respiratory exam: Present: normal lung sounds bilaterally. Absent: respiratory distress, wheezes, rales, rhonchi, stridor Cardiovascular Exam: Present: regular rate, normal rhythm, normal heart sounds. Absent: systolic murmur, diastolic murmur, rubs, gallop GI/Abdominal exam: Present: soft. Absent: distended, tenderness, guarding, rebound, rigid, mass Extremities exam: Present: normal inspection, normal capillary refill. Absent: pedal edema, calf tenderness Back exam: Present: normal inspection. Absent: CVA tenderness (R), CVA tenderness (L) Neurological exam: Present: alert, oriented X3, CN II-XII intact. Absent: motor sensory deficit Skin exam: Present: warm, dry, intact, normal color. Absent: rash Course Vital Signs 11/23/22 11/23/22 11/23/22 15:23 17:18 19:01 Temperature 97.6 F Pulse Rate 113 H 92 90 Respiratory 20 18 18 Rate Blood Pressure 152/99 144/92 134/92 O2 Sat by Pulse 100 97 97 Oximetry EKG Findings - EKG Results: EKG: interpreted by ERMD, sinus rhythm (Rate 91), normal axis, normal QRS, normal ST/T Medical Decision Making - Medical Decision Making This patient is a 42-year-old woman presenting with left-sided numbness and weakness which started approximately 4 hours prior to arrival here. She was also having some dysarthria. Patient has workup which is unremarkable. On reev aluation, she has had resolution of the symptoms though some numbness on the left face does remain. The weakness and dysarthria have resolved. Given the duration of the apparent TIA symptoms, will admit to have neurology consultation and further evaluation. The patient had a CT of the brain which I interpreted as being negative for acute intracranial hemorrhage. The patient had chest x-ray which I interpreted as being negative for acute infiltrate, pneumothorax, congestive heart failure. - Lab Data Result diagrams: 11/23/22 16:07 11/23/22 16:07 Lab Results 11/23/22 11/23/22 11/23/22 Range/Units 15:39 16:07 16:07 WBC 5.9 (3.8-10.6) k/uL RBC 5.02 (3.80-5.40) m/uL Hgb 15.2 (11.4-16.0) gm/dL Hct 45.4 (34.0-46.0) % MCV 90.4 (80.0-100.0) fL MCH 30.2 (25.0-35.0) pg MCHC 33.4 (31.0-37.0) g/dL RDW 12.9 (11.5-15.5) % Plt Count 314 (150-450) k/uL MPV 7.7 Neutrophils % 53 % Lymphocytes % 36 % Monocytes % 5 % Eosinophils % 3 % Basophils % 1 % Neutrophils # 3.1 (1.3-7.7) k/uL Lymphocytes # 2.1 (1.0-4.8) k/uL Monocytes # 0.3 (0-1.0) k/uL Eosinophils # 0.2 (0-0.7) k/uL Basophils # 0.0 (0-0.2) k/uL PT 10.4 (9.0-12.0) sec INR 1.0 (<1.2) APTT 25.0 (22.0-30.0) sec Sodium (137-145) mmol/L Potassium (3.5-5.1) mmol/L Chloride (98-107) mmol/L Carbon Dioxide (22-30) mmol/L Anion Gap mmol/L BUN (7-17) mg/dL Creatinine (0.52-1.04) mg/dL Est GFR (CKD-EPI)AfAm (>60 ml/min/1.73 sqM) Est GFR (CKD-EPI)NonAf (>60 ml/min/1.73 sqM) Glucose (74-99) mg/dL POC Glucose (mg/dL) 97 (70-110) mg/dL POC Glu Wildlife Technician Darryl Singh Calcium (8.4-10.2) mg/dL Total Bilirubin (0.2-1.3) mg/dL AST (14-36) U/L ALT (4-34) U/L Alkaline Phosphatase (38-126) U/L Creatine Kinase (30-135) U/L Troponin I (0.000-0.034) ng/mL Total Protein (6.3-8.2) g/dL Albumin (3.5-5.0) g/dL 11/23/22 11/23/22 Range/Units 16:07 16:07 WBC (3.8-10.6) k/uL RBC (3.80-5.40) m/uL Hgb (11.4-16.0) gm/dL Hct (34.0-46.0) % MCV (80.0-100.0) fL MCH (25.0-35.0) pg MCHC (31.0-37.0) g/dL RDW (11.5-15.5) % Plt Count (150-450) k/uL MPV Neutrophils % % Lymphocytes % % Monocytes % % Eosinophils % % Basophils % % Neutrophils # (1.3-7.7) k/uL Lymphocytes # (1.0-4.8) k/uL Monocytes # (0-1.0) k/uL Eosinophils # (0-0.7) k/uL Basophils # (0-0.2) k/uL PT (9.0-12.0) sec INR (<1.2) APTT (22.0-30.0) sec Sodium 137 (137-145) mmol/L Potassium 4.0 (3.5-5.1) mmol/L Chloride 104 (98-107) mmol/L Carbon Dioxide 24 (22-30) mmol/L Anion Gap 9 mmol/L BUN 5 L (7-17) mg/dL Creatinine 0.56 (0.52-1.04) mg/dL Est GFR (CKD-EPI)AfAm >90 (>60 ml/min/1.73 sqM) Est GFR (CKD-EPI)NonAf >90 (>60 ml/min/1.73 sqM) Glucose 98 (74-99) mg/dL POC Glucose (mg/dL) (70-110) mg/dL POC Glu Wildlife Technician ID Calcium 8.7 (8.4-10.2) mg/dL Total Bilirubin 0.6 (0.2-1.3) mg/dL AST 25 (14-36) U/L ALT 16 (4-34) U/L Alkaline Phosphatase 67 (38-126) U/L Creatine Kinase 64 (30-135) U/L Troponin I <0.012 (0.000-0.034) ng/mL Total Protein 7.4 (6.3-8.2) g/dL Albumin 4.2 (3.5-5.0) g/dL Disposition Clinical Impression: Transient cerebral ischemia Disposition: ADMITTED IP TO THIS HOSP Condition: Fair Is patient prescribed a controlled substance at d/c from ED?: No
[2022-11-23 16:15] LABS: Basophils % (A) 1 %; Eosinophils # (A) 0.2 k/uL (0-0.7); Eosinophils % (A) 3 %; HCT 45.4 % (34.0-46.0); HGB 15.2 gm/dL (11.4-16.0); Lymphocytes # (A) 2.1 k/uL (1.0-4.8); Lymphocytes % (A) 36 %; MCH 30.2 pg (25.0-35.0); MCHC 33.4 g/dL (31.0-37.0); MCV 90.4 fL (80.0-100.0); Mean Platelet Volume 7.7; Monocytes # (A) 0.3 k/uL (0-1.0); Monocytes % (A) 5 %; Neutrophils # (A) 3.1 k/uL (1.3-7.7); Neutrophils % (A) 53 %; Platelet Count 314 k/uL (150-450); RBC 5.02 m/uL (3.80-5.40); RDW 12.9 % (11.5-15.5); WBC 5.9 k/uL (3.8-10.6)
[2022-11-23 16:33] LABS: ALT 16 U/L (4-34); AST 25 U/L (14-36); African American GFR (CKD) >90 (>60 ml/min/1.73 sqM); Albumin 4.2 g/dL (3.5-5.0); Alkaline Phosphatase 67 U/L (38-126); Anion Gap 9 mmol/L; Blood Urea Nitrogen 5 mg/dL (7-17); Calcium 8.7 mg/dL (8.4-10.2); Carbon Dioxide 24 mmol/L (22-30); Chloride 104 mmol/L (98-107); Creatine Kinase 64 U/L (30-135); Glucose 98 mg/dL (74-99); Non-African American GFR(CKD) >90 (>60 ml/min/1.73 sqM); Sodium 137 mmol/L (137-145); Total Bilirubin 0.6 mg/dL (0.2-1.3); Total Protein 7.4 g/dL (6.3-8.2)
--- NOTE | 2022-11-23 16:49 | XR ---
EXAMINATION TYPE: XR chest 2V DATE OF EXAM: 11/23/2022 COMPARISON: 07/10/2019 HISTORY: 42-year-old female confusion, altered mental status TECHNIQUE: AP and lateral views FINDINGS: The cardiomediastinal silhouette, aorta, and pulmonary vasculature are within normal limits. Lungs an d pleural spaces are clear. IMPRESSION: No acute cardiopulmonary process.
--- NOTE | 2022-11-23 16:55 | CT ---
EXAMINATION TYPE: CT brain wo con for TPA DATE OF EXAM: 11/23/2022 COMPARISON: 01/05/2021 HISTORY: 42-year-old female lodging deficit, acute, stroke suspected TECHNIQUE: Examination was done in axial plane without intravenous contrast. Coronal and sagittal r econstructions performed. CT DLP: 1103.6 mGycm Automated exposure control for dose reduction was used. FINDINGS: There is no evidence of acute intracranial hemorrhage, acute ischemic changes, mass, mass-effect, or extra-axial fluid collection. There is no effacement of cerebral sulci or basal subarachnoid cister ns. There is no hydrocephalus. There is no midline shift. Ferrer-white matter distinction is preserv ed. Mild mucosal thickening anterior ethmoid air cells and maxillary sinuses. Mastoid air cells are well pneumatized. Orbits and globes are intact. Cerumen within the right external auditory canal. IMPRESSION: No acute intracranial abnormality seen.
--- NOTE | 2022-11-23 16:56 | CT ---
EXAMINATION TYPE: CT angio head neck DATE OF EXAM: 11/23/2022 COMPARISON: CT brain same day HISTORY: 42-year-old female neurologic deficit, acute, stroke suspected TECHNIQUE: Contiguous axial scanning of the head and neck performed with IV Contrast, patient injecte d with 75 mL of Isovue 370. Coronal/sagittal reconstructions performed. 3-D reconstructions generated on a dedicated independent workstation. CT DLP: 389.4 mGycm Automated exposure control for dose reduction was used. FINDINGS: NECK: Visualized upper lungs are clear. Convex shortness of branching anatomy. Multinodular thyroid gland. Nodules measure up to at least 1 cm. Consider further assessment with ded icated thyroid ultrasound. The vertebral arteries are codominant and patent throughout worse. The bilateral common and bilateral internal carotid arteries are widely patent without significant at herosclerotic change. NASCET criteria is utilized. HEAD: Slightly more dominant and V4 segment right vertebral artery. Otherwise, both vertebral and basilar a rteries as well as the remainder of the posterior circulation are patent. Dural venous sinuses are patent. The bilateral internal carotid arteries as well as the remainder of the anterior circulation is paten t. No aneurysmal changes seen. IMPRESSION: 1. NECK: WIDELY PATENT VERTEBRAL AND CAROTID ARTERIES OF THE NECK. CONSIDER NONEMERGENT THYROID ULTRA SOUND FOR ASSESSMENT OF THE MULTINODULAR THYROID GLAND. 2. HEAD: NO LARGE VESSEL INTRACRANIAL ARTERIAL OCCLUSION, SIGNIFICANT STENOSIS, OR ANEURYSMAL CHANGE IS SEEN
[2022-11-23 18:06] LABS: Prothrombin Time 10.4 sec (9.0-12.0)
[2022-11-23] MEDS ORDERED: ACETAMINOPHEN TAB 325 MG TAB PO PRN (19:01)
[2022-11-23] MEDS ORDERED: ASPIRIN 325 MG TAB PO STA (19:01)
[2022-11-23] MEDS ORDERED: SODIUM CHLORIDE 0.9% 1,000 ML IV SCH (19:15)
[2022-11-23] MEDS: FAMOTIDINE 20 MG TAB PO SCH (19:51)
--- NOTE | 2022-11-24 03:49 | P.HPIM ---
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 this started suddenly along with some numbness over her left side of the face and upper extremity. no history of falls, head injury. denies any history of afib or blood clots. denies any associated fall, headache, changes in vision or hearing. she also was recently diagnosed with absent seizures ,however the medicine has been causing her to have rashes and hives. she would like stop it for now. denies tobacco smoking , illicit drugs and alcohol patient report almost complete resolution of her symptoms at time of my evaluation PMHX absent seizure review of systems Pertinent positives as noted in HPI. All other systems were reviewed and are negative on exam Constitutional: No acute distress, conversant, pleasant Eyes: Anicteric sclerae, moist conjunctiva, Pupils equal round reactive to light ENMT: NC/AT Oropharynx clear, no erythema, or exudates Neck: Supple, no masses, or JVD No carotid bruits No thyromegaly Lungs: Clear to auscultation Clear to percussion Normal respiratory effort, no accessory muscle use Cardiovascular: Heart regular in rate and rhythm, No murmurs, gallops, or rubs No peripheral edema Abdominal: Soft Nontender, no guarding, rebound or rigidity Abdomen moving with respiration Normoactive bowel sounds No hepatomegaly, No splenomegaly No palpable mass No abdominal wall hernia noted Skin: no rashes no hives. but showed me a picture of her typical breakout Extremities: No digital cyanosis No clubbing Pedal pulses intact and symmetrical Radial pulses intact and symmetrical No calf tenderness Psychiatric: Alert and oriented to person, place and time Appropriate affect fair judgement Neuro Muscles Strength 5/5 in right upper and lower extremity , and 4/5 over left upper and lower extremity however seems like there is some inconsistent effort and shaking during the assessment deep tendon reflexes brisk over bilateral knees and elbows. plantar reflex downward bilaterally , no myoclonus over the feet Sensation to light touch grossly present throughout Cranial nerves II-XII grossly intact Lymphatics: no palpable cervical or supraclavicular lymph nodes Past Medical History Past Medical History: Seizure Disorder Additional Past Medical History / Comment(s): gastritis, ovarian cysts, long COVID, 1 History of Any Multi-Drug Resistant Organisms: None Reported Past Surgical History: Cholecystectomy Additional Past Surgical History / Comment(s): EGD, uterine wall and ovarian cyst removal Past Anesthesia/Blood Transfusion Reactions: No Reported Reaction Past Psychological History: No Psychological Hx Reported Smoking Status: Never smoker Past Alcohol Use History: Occasional Past Drug Use History: None Reported - Past Family History Mother Additional Family Medical History / Comment(s): TIAs cysts hysterectomy Father Family Medical History: No Reported History Medications and Allergies Home Medications Medication Instructions Recorded Confirmed Type Lo Loestrin Fe 1-10 1 tab PO DAILY@0700 04/20/19 11/23/22 History Dextroamphetamine/Amphetamine 15 mg PO DAILY@69911/23/22 11/23/22 History [Adderall Xr 15 mg Capsule] Ethosuximide 250 mg PO BID@0800,199911/23/22 11/23/22 History Allergies Allergy/AdvReac Type Severity Reaction Status Date / Time gluten Allergy Unknown Verified 11/23/22 15:27 Physical Exam Vitals: Vital Signs Temp Pulse Pulse Resp BP BP Pulse Ox 11/24/22 02:15 98.0 F 85 133/91 94 L 11/23/22 20:09 98.2 F 82 17 136/86 100 11/23/22 19:01 90 18 134/92 97 11/23/22 17:18 92 18 144/92 97 11/23/22 15:23 97.6 F 113 H 20 152/99 100 Intake and Output 11/23/22 11/23/22 11/24/22 14:59 22:59 06:59 Other: # Voids 1 Weight 54.431 kg Results CBC & Chem 7: 11/23/22 16:07 11/23/22 16:07 Labs: Abnormal Lab Results - Last 24 Hours (Table) 11/23/22 Range/Units 16:07 BUN 5 L (7-17) mg/dL Thrombosis Risk Factor Assmnt - Choose All That Apply Each Factor Represents 1 point: Age 41-60 years Other congenital or acquired thrombophilia - If yes, enter type in comment: No Thrombosis Risk Factor Assessment Total Risk Factor Score: 1 Thrombosis Risk Factor Assessment Level: Low Risk Assessment and Plan Assessment: 42 year old female with absent seizure, presenting with left sided weakness, I discussed the case with ED doc, and I accepted the admission for TIA for neuro evaluation with anticipated length of stay < 2 midnights TIA almost complete resolution of her symptoms CT brain no acute pathology CTA head and neck no major blood vessel stenosis or occlusion low ABCD2 score Aspirin daily check lipid panel EKG NSR check echocardiogram blood work unremarkable bun 5 , cr 0.5, NA 137 , K 4.0 unremarkable neurochecks hold antiseizure meds 2/2 intolerance PT/OT eval incidental finding of multinodular goiter , with recommendation of OP thyroid US per CTA head and neck results full code DVT PPX heparin sc tid
[2022-11-24] MEDS: FAMOTIDINE 20 MG TAB PO SCH (08:32)
[2022-11-24] MEDS: HEPARIN SODIUM,PORCINE/PF 5,000 UNIT/0.5 ML SYRINGE SQ SCH ×2 (08:33→18:10)
[2022-11-24] MEDS ORDERED: ASPIRIN 325 MG TAB PO SCH (09:00)
[2022-11-24 09:56] LABS: Chol/HDL Ratio 2.06 Ratio; LDL Cholesterol,Calculated 94.2 mg/dL (0.0-131.0)
--- NOTE | 2022-11-24 12:13 | P.PN ---
Subjective Progress Note Date: 11/24/22 Patient states that the numbness on her face his back. She states that she still has left lower extremity weakness. She worked with physical therapy recommended a cane for her. Physical exam General examination - Alert and Oriented 3 in NAD Heart - + S1S2 no murmurs Lungs - Clear to auscultation Abdomen soft NT ND +ve BS Extremities - No edema VICE PRESIDENT OF CUSTOMER SERVICE -decreased sensation on the left side of her face, 4 out of 5 strength in the left lower extremity Psych - Calm and cooperative Assessment Left facial numbness and left-sided weakness. Possible etiology includes stroke versus other etiology. Recently diagnosed with absence seizures We'll obtain an MRI with and without contrast I reviewed patient's recent outpatient MRI without contast that was negative for any acute process Check echocardiogram LDL is 94 Continue with aspirin 325 mg daily We'll start the patient on atorvastatin 40 mg daily Physical therapy recommending outpatient versus home physical therapy. Patient requesting for outpatient physical therapy. Awaiting for neurology consult Patient currently does not want to take her seizure medications due to side effects Subcu heparin for DVT prophylaxis Objective - Vital Signs Vital signs: Vital Signs Temp 98.0 F 11/24/22 07:00 Pulse 75 11/24/22 07:00 Resp 15 11/24/22 08:33 BP 121/85 11/24/22 07:00 Pulse Ox 100 11/24/22 11:40 FiO2 Intake & Output 11/23/22 11/24/22 11/24/22 18:59 06:59 18:59 Weight 54.431 kg 54.431 kg Other: Voiding Method Toilet # Voids 3 - Labs CBC & Chem 7: 11/23/22 16:07 11/23/22 16:07 Labs: Abnormal Lab Results - Last 24 Hours (Table) 11/23/22 11/23/22 Range/Units 16:07 16:07 BUN 5 L (7-17) mg/dL Cholesterol 214.00 H (0.00-200.00) mg/dL HDL Cholesterol 104.00 H (40.00-60.00) mg/dL
--- NOTE | 2022-11-24 15:09 | CA ---
Transthoracic Echo Report Name: Yuridia Ness Age: 42 Gender: F : 1980 Exam Date: 11/24/2022 07:50 Exam Location: [place] [facility] Ht (in): 62 Wt (lb): 120 Ordering Physician: Myron Figueroa MD Attending/Referring Phys: Bindery Helper Gwendolyn Rodriguez [facility] Procedure CPT: Indications: Thrombus Cardiac Hx: Technical Quality: Fair Contrast 1: Total Dose (mL): Contrast 2: Total Dose (mL): MEASUREMENTS (Male / Female) Normal Values 2D ECHO LV Diastolic Diameter PLAX 4.2 cm 4.2 - 5.9 / 3.9 - 5.3 cm LV Systolic Diameter PLAX 2.6 cm IVS Diastolic Thickness 0.7 cm 0.6 - 1.0 / 0.6 - 0.9 cm LVPW Diastolic Thickness 0.7 cm 0.6 - 1.0 / 0.6 - 0.9 cm LV Relative Wall Thickness 0.3 LVOT Diameter 2.0 cm M-MODE Aortic Root Diameter MM 2.4 cm LA Systolic Diameter MM 2.9 cm LA Ao Ratio MM 1.2 AV Cusp Separation MM 1.6 cm DOPPLER AV Peak Velocity 136.6 cm/s AV Peak Gradient 7.5 mmHg AV Mean Velocity 93.7 cm/s AV Mean Gradient 3.9 mmHg AV Velocity Time Integral 27.2 cm LVOT Peak Velocity 106.3 cm/s LVOT Peak Gradient 4.5 mmHg LVOT Velocity Time Integral 21.8 cm LVOT Stroke Volume 66.0 cm??? LVOT Stroke Volume Index 42.9 ml/m??? LVOT Cardiac Index 2987.0 cm???/min???m??? AV Area Cont Eq vti 2.4 cm??? AV Area Cont Eq pk 2.4 cm??? Mitral E Point Velocity 91.0 cm/s Mitral A Point Velocity 62.8 cm/s Mitral E to A Ratio 1.4 MV Deceleration Time 177.7 ms LV E' Lateral Velocity 17.9 cm/s Mitral E to LV E' Lateral Ratio 5.1 LV E' Septal Velocity 11.8 cm/s Mitral E to LV E' Septal Ratio 7.7 Right Atrial Pressure 3.0 mmHg FINDINGS Left Ventricle Normal left ventricular size, wall thickness, systolic function with no obvious regional wall motion abnormalities. The ejection fraction is visually estimated at 55-60%. Right Ventricle The right ventricle is normal in size and function. Right Atrium The right atrium is normal in size. Left Atrium The left atrium is normal in size. Mitral Valve Structurally normal mitral valve without significant stenosis or prolapse. There is trace mitral regurgitation. Aortic Valve Structurally normal aortic valve without significant sclerosis or stenosis. There is no aortic regurgitation. Tricuspid Valve Structurally normal tricuspid valve without significant stenosis. Trace tricuspid regurgitation. Pulmonic Valve Structurally normal pulmonic valve without significant stenosis. There is no pulmonic regurgitation. Pericardium Normal pericardium without effusion. Aorta Normal aortic root dimension. CONCLUSIONS 1. Normal left ventricle size and systolic function 2. Trace mitral and tricuspid regurgitation Previewed by: Randy Navarro MD Dr. Bashar Samman MD (Electronically Signed) Final Date: 24 November 2022 15:09
[2022-11-24 15:58] VITALS: BP 124/83; PULSE 82; RESP 16; TEMP 97.7
--- NOTE | 2022-11-24 17:32 | MR ---
EXAMINATION TYPE: MR brain wo/w con DATE OF EXAM: 11/24/2022 COMPARISON: CT 11/23/2022 and MRI 03/01/2021. HISTORY: 42-year-old female Left sided symptoms, r/o CVA TECHNIQUE: Multiplanar, multisequence images of the brain and brainstem were acquired before and aft er administration of 5.5 mL IV Gadavist. Diffusion weighted imaging is performed. FINDINGS: No evidence for acute infarction, hemorrhage, mass, mass effect, midline shift, herniation, effacemen t of basal cisterns, or extra-axial fluid collection. The ventricles and sulci are age-appropriate. Major intracranial flow voids are intact. T2/FLAIR weighted sequences show minimal scattered bright white matter foci in the subcortical region of the left cerebral hemisphere numbering less than 5. Midline structures demonstrate normal morphology. The craniocervical junction is normal. Post contrast images demonstrate no evidence of pathologic enhancement. Dural venous sinuses are pat ent. Gynu-[id number] mucosal thickening bilateral maxillary sinuses and ethmoid air cells. Globes are int act. IMPRESSION: 1. No acute intracranial abnormality seen. No abnormal intracranial enhancement. 2. Trace nonspecific burden of T2 bright white matter change in the left cerebral hemisphere. 3. 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
--- NOTE | 2022-11-24 18:14 | P.DS ---
Providers Date of admission: 11/23/22 19:01 Attending physician: Ivon Wilson DO Consults: 11/23/22 19:02 Consult Physician Routine Consulting Provider: Henrik López Consult Reason/Comments: L sided weakness. TIA Do you want consulting provider notified?: Yes Primary care physician: Dragan Boudreaux [place] [facility] Course: Discharge Diagnosis: Left-sided facial numbness and left upper and lower extremity weakness unclear etiology. Acute stroke ruled out an MRI negative for any enhancement. Absence seizures Hospital Course: Patient is a 42-year-old female with a past medical history of absence seizures recently diagnosed and was started on treatment presents to the hospital with left-sided weakness. In the ED her symptoms had resolved. However in the morning her symptoms came back. Her MRI with and without contrast was negative for acute stroke or any enhancement. Her CTA was negative for significant stenosis. Echocardiogram negative for thrombus. Patient instructed to continue to follow with her neurologist. She was started on aspirin and statin. Physical therapy recommended a cane and physical therapy outpatient. Patient was provided with a prescription for outpatient physical therapy. Patient seen and examined at bedside on 11/24/2022.[] Please see progress note for physical exam A total of [33] minutes of time were spent preparing this complex discharge summary . Patient Condition at Discharge: Fair Plan - Discharge Summary New Discharge Prescriptions: New Aspirin 81 mg PO DAILY 30 Days #30 tab Atorvastatin [Lipitor] 40 mg PO HS 30 Days #30 tab Continue Lo Loestrin Fe 1-10 1 tab PO DAILY@0700 Ethosuximide 250 mg PO BID@ Dextroamphetamine/Amphetamine [Adderall Xr 15 mg Capsule] 15 mg PO DAILY@0700 Discharge Medication List Lo Loestrin Fe 1-10 1 tab PO DAILY@0700 04/20/19 [History] Dextroamphetamine/Amphetamine [Adderall Xr 15 mg Capsule] 15 mg PO DAILY@0700 11/23/22 [History] Ethosuximide 250 mg PO BID@799,199911/23/22 [History] Aspirin 81 mg PO DAILY 30 Days #30 tab 11/24/22 [Rx] Atorvastatin [Lipitor] 40 mg PO HS 30 Days #30 tab 11/24/22 [Rx] Follow up Appointment(s)/Referral(s): Dragan Boudreaux MD [Primary Care Provider] - 1-2 days Juan Lugo MD [STAFF PHYSICIAN] - 1 Week Discharge Disposition: HOME SELF-CARE
[2022-11-24] MEDS ORDERED: ATORVASTATIN 40 MG TAB PO SCH (21:00)
== END 2022-11-24 18:40 | disposition home or self-care (01) ==
LOC: EC 14:57 → 6NMEDSUR 19:01
PROVIDERS: ADMIT Internal Medicine; ATTEND Internal Medicine
DX: R53.1 Weakness (principal); R20.0 Anesthesia of skin; R47.1 Dysarthria and anarthria; G40.A09 Absence epileptic syndrome, not intractable, without status epilepticus; E04.2 Nontoxic multinodular goiter; U09.9 Post COVID-19 condition, unspecified; Z79.3 Long term (current) use of hormonal contraceptives; Z79.899 Other long term (current) drug therapy; Z91.02 Food additives allergy status; Z87.42 Personal history of other diseases of the female genital tract; Z87.19 Personal history of other diseases of the digestive system; Z90.49 Acquired absence of other specified parts of digestive tract; Z98.890 Other specified postprocedural states; Z82.0 Family history of epilepsy and other diseases of the nervous system
CPT/HCPCS: 96372; 99285; 36415; 94760; 93005; 93306; 97162; 80061; 80053; 82550; 84484; 85025; 85610; 85730; 83036; 71046; 70496; 70450; 70498; 70553; G0378 ×2; A9585; Q9967; J1644

== ENCOUNTER → 2023-02-13 | Outpatient (CLI) | payer BC ==
--- NOTE | 2023-02-14 09:30 | MM ---
Reason for Exam: Screening (asymptomatic). Last mammogram was performed 1 year(s) and 2 month(s) ago. Patient History: Menarche at age 11. First Full-Term at age 35. Late child-bearing (after 30). Postmenopausal. Patient used Estrogen for 7 years. Risk Values: Shahnaz 5 year model risk: 0.9%. NCI Lifetime model risk: 14.7%. Prior Study Comparison: 01/01/2022 Bilateral MG 3D screening mammo w/cad, [facility]. Tissue Density: The breast tissue is heterogeneously dense. This may lower the sensitivity of mammography. Findings: Analyzed By CAD. There is no suspicious group of microcalcifications or new suspicious mass in either breast. Overall Assessment: Negative, BI-RAD 1 Management: Screening Mammogram of both breasts in 1 year. . Patient should continue monthly self-breast exams. A clinical breast exam by your physician is recommended on an annual basis. This exam should not preclude additional follow-up of suspicious palpable abnormalities. Note on Shahnaz scores and lifetime risk: 1. A Shahnaz score greater than 3% is considered moderate risk. If this is the case, consider specialist referral to assess eligibility for a risk reducing agent. 2. If overall lifetime risk for the development of breast cancer is 20% or higher, the patient may qualify for future screening with alternating mammogram and breast MRI. Electronically signed and approved by: Ramirez Espino M.D. Radiologis
== END | disposition home or self-care (01) ==
LOC: RADMAMWWP 08:31
PROVIDERS: ATTEND Obstetrics & Gynecology
DX: Z12.31 Encounter for screening mammogram for malignant neoplasm of breast (principal); Z78.0 Asymptomatic menopausal state
CPT/HCPCS: 77063; 77067

== ENCOUNTER 2023-07-24 14:41 | Emergency (ER) | payer BC ==
[2023-07-24 15:17] VITALS: TEMP 98.1
--- NOTE | 2023-07-24 15:43 | ED ---
General Adult HPI - General Chief complaint: Shortness of Breath Stated complaint: rib pain/LESLEE Time Seen by Provider: 07/24/23 15:06 Source: patient, RN notes reviewed Mode of arrival: ambulatory Limitations: no limitations - History of Present Illness Initial comments: 42-year-old female presents to the emergency department for evaluation of right lower lung pain posteriorly. Symptoms started just prior to arrival. Patient states that this came on suddenly. She states that it is associated with shortness of breath. She states that she had a recent viral illness about 1 week ago. She states that she had improved from this. She denies any recent fever. - Related Data Home Medications Medication Instructions Recorded Confirmed Lo Loestrin Fe 1-10 1 tab PO DAILY@0700 04/20/19 11/23/22 Dextroamphetamine/Amphetamine 15 mg PO DAILY@0700 11/23/22 11/23/22 [Adderall Xr 15 mg Capsule] Ethosuximide 250 mg PO BID@0800,199911/23/22 11/23/22 Previous Rx's Medication Instructions Recorded Aspirin 81 mg PO DAILY 30 Days #30 tab 11/24/22 Atorvastatin [Lipitor] 40 mg PO HS 30 Days #30 tab 11/24/22 Allergies Allergy/AdvReac Type Severity Reaction Status Date / Time gluten Allergy Unknown Verified 11/23/22 15:27 Review of Systems ROS Statement: Those systems with pertinent positive or pertinent negative responses have been documented in the HPI. ROS Other: All systems not noted in ROS Statement are negative. Past Medical History Past Medical History: Seizure Disorder Additional Past Medical History / Comment(s): gastritis, ovarian cysts, long COVID, 1 History of Any Multi-Drug Resistant Organisms: None Reported Past Surgical History: Cholecystectomy Additional Past Surgical History / Comment(s): EGD, uterine wall and ovarian cyst removal Past Anesthesia/Blood Transfusion Reactions: No Reported Reaction Past Psychological History: No Psychological Hx Reported Smoking Status: Never smoker Past Alcohol Use History: Occasional Past Drug Use History: None Reported - Past Family History Mother Additional Family Medical History / Comment(s): TIAs cysts hysterectomy Father Family Medical History: No Reported History General Exam Limitations: no limitations General appearance: alert, in no apparent distress Head exam: Present: atraumatic, normocephalic, normal inspection Eye exam: Present: normal appearance, PERRL, EOMI. Absent: scleral icterus, conjunctival injection, periorbital swelling ENT exam: Present: normal exam, mucous membranes moist Neck exam: Present: normal inspection. Absent: tenderness, meningismus, lym phadenopathy Respiratory exam: Present: normal lung sounds bilaterally. Absent: respiratory distress, wheezes, rales, rhonchi, stridor Cardiovascular Exam: Present: regular rate, normal rhythm, normal heart sounds. Absent: systolic murmur, diastolic murmur, rubs, gallop, clicks GI/Abdominal exam: Present: soft, normal bowel sounds. Absent: distended, tenderness, guarding, rebound, rigid Extremities exam: Present: normal inspection, full ROM, normal capillary refill. Absent: tenderness, pedal edema, joint swelling, calf tenderness Back exam: Present: normal inspection Neurological exam: Present: alert, oriented X3 Psychiatric exam: Present: normal affect, normal mood Skin exam: Present: warm, dry, intact, normal color. Absent: rash Course Vital Signs 07/24/23 07/24/23 07/24/23 14:43 15:55 17:41 Temperature 98.1 F Pulse Rate 130 H 100 90 Respiratory 22 20 Rate Blood Pressure 157/92 139/85 O2 Sat by Pulse 99 99 99 Oximetry Medical Decision Making - Medical Decision Making Was pt. sent in by a medical professional or institution (TOMASZ Tapia, TELEPHONE INFORMATION CLERK, urgent care, hospital, or group home...) When possible be specific @ -No Did you speak to anyone other than the patient for history (EMS, parent, family, police, friend...)? What history was obtained from this source @ -Mother provided some history for this patient Did you review nursing and triage notes (agree or disagree)? Why? @ -I reviewed and agree with nursing and triage notes Were old charts reviewed (outside hosp., previous admission, EMS record, old EKG, old radiological studies, urgent care reports/EKG's, group home records)? Report findings @ -No old charts were reviewed Differential Diagnosis (chest pain, altered mental status, abdominal pain women, abdominal pain men, vaginal bleeding, weakness, fever, dyspnea, syncope, headache, dizziness, GI bleed, back pain, seizure, CVA, palpatations, mental health, musculoskeletal)? @ -Differential Dyspnea: Coronary syndrome, arrhythmia, tamponade, asthma, COPD, pulmonary embolism, pneumonia, pneumothorax, pulmonary effusion, anaphylaxis, diabetic ketoacidosis, flailed chest, pulmonary contusion, diaphragmatic rupture, anemia, skylar romuscular, this is not meant to be an all-inclusive list. EKG interpreted by me (3pts min.). @ -EKG at 1542 shows sinus tachycardia rate 105, FL 110, QRS 81, QTQTc 386/397 X-rays interpreted by me (1pt min.). @ -Chest x-ray shows no acute infiltrate CT interpreted by me (1pt min.). @ -None done U/S interpreted by me (1pt. min.). @ -None done What testing was considered but not performed or refused? (CT, X-rays, U/S, labs)? Why? @ -None What meds were considered but not given or refused? Why? @ -None Did you discuss the management of the patient with other professionals (professionals i.e. , PA, TELEPHONE INFORMATION CLERK, lab, RT, psych nurse, social sciences instructor, associate merchant, teacher, senior administrative services officer, bilingual case manager)? Give summary @ -No Was smoking cessation discussed for >3mins.? @ -No Was critical care preformed (if so, how long)? @ -No Were there social determinants of health that impacted care today? How? (Homelessness, low income, unemployed, alcoholism, drug addiction, transportation, low edu. Level, literacy, decrease access to med. care, long term, rehab)? @ -No Was there de-escalation of care discussed even if they declined (Discuss DNR or withdrawal of care, Hospice)? DNR status @ -No What co-morbidities impacted this encounter? (DM, HTN, Smoking, COPD, CAD, Cancer, CVA, ARF, Chemo, Hep., AIDS, mental health diagnosis, sleep apnea, morbid obesity)? @ -None Was patient admitted / discharged? Hospital course, mention meds given and route, prescriptions, significant lab abnormalities, going to OR and other pertinent info. @ -Discharge. Patient presented to the emergency department for evaluation of right sided back/rib pain. Laboratory studies obtained. CBC unremarkable with normal WBC of 6.1, hemoglobin 14.4; normal coagulation studies including a negative D-dimer at 0.26; CMP unremarkable, lactic acid 1.2, negative troponin at less than 0.012. Chest x-ray shows no acute process. Patient does report that she has been sick recently and coughing frequently. Discussed that this is possibly the cause of her symptoms. Patient was given a dose of Toradol in the emergency department which significantly improved her symptoms. Patient will be discharged home. Patient understanding agreeable with plan. Patient stable at time of discharge. Case discussed with Dr. Zhu Undiagnosed new problem with uncertain prognosis? @ -No Drug Therapy requiring intensive monitoring for toxicity (Heparin, Nitro, Insulin, Cardizem)? @ -No Were any procedures done? @ -No Diagnosis/symptom? @ -Back pain, pleurisy Acute, or Chronic, or Acute on Chronic? @ -acute Uncomplicated (without systemic symptoms) or Complicated (systemic symptoms)? @ -uncomplicated Side effects of treatment? @ -No Exacerbation, Progression, or Severe Exacerbation? @ -No Poses a threat to life or bodily function? How? (Chest pain, [place], CO, pneumonia, PE, COPD, DKA, ARF, appy, cholecystitis, CVA, Diverticulitis, Homicidal, Suicidal, threat to staff... and all critical care pts) @ -No - Lab Data Result diagrams: 07/24/23 15:39 07/24/23 15:39 Lab Results 07/24/23 07/24/23 07/24/23 Range/Units 15:39 15:39 15:39 WBC 6.1 (3.8-10.6) k/uL RBC 4.60 (3.80-5.40) m/uL Hgb 14.4 (11.4-16.0) gm/dL Hct 42.1 (34.0-46.0) % MCV 91.3 (80.0-100.0) fL MCH 31.3 (25.0-35.0) pg MCHC 34.3 (31.0-37.0) g/dL RDW 11.9 (11.5-15.5) % Plt Count 492 H (150-450) k/uL MPV 7.5 Neutrophils % 50 % Lymphocytes % 39 % Monocytes % 7 % Eosinophils % 1 % Basophils % 1 % Neutrophils # 3.1 (1.3-7.7) k/uL Lymphocytes # 2.4 (1.0-4.8) k/uL Monocytes # 0.4 (0-1.0) k/uL Eosinophils # 0.0 (0-0.7) k/uL Basophils # 0.1 (0-0.2) k/uL PT 10.4 (10.0-12.5) sec INR 0.9 (<1.2) APTT 23.9 (22.0-30.0) sec D-Dimer 0.26 (<0.60) mg/L FEU Sodium (137-145) mmol/L Potassium (3.5-5.1) mmol/L Chloride (98-107) mmol/L Carbon Dioxide (22-30) mmol/L Anion Gap mmol/L BUN (7-17) mg/dL Creatinine (0.52-1.04) mg/dL Est GFR (CKD-EPI)AfAm (>60 ml/min/1.73 sqM) Est GFR (CKD-EPI)NonAf (>60 ml/min/1.73 sqM) Glucose (74-99) mg/dL Plasma Lactic Acid Richard 1.2 (0.7-2.0) mmol/L Calcium (8.4-10.2) mg/dL Total Bilirubin (0.2-1.3) mg/dL AST (14-36) U/L ALT (4-34) U/L Alkaline Phosphatase (38-126) U/L Troponin I (0.000-0.034) ng/mL Total Protein (6.3-8.2) g/dL Albumin (3.5-5.0) g/dL 07/24/23 07/24/23 Range/Units 15:39 15:39 WBC (3.8-10.6) k/uL RBC (3.80-5.40) m/uL Hgb (11.4-16.0) gm/dL Hct (34.0-46.0) % MCV (80.0-100.0) fL MCH (25.0-35.0) pg MCHC (31.0-37.0) g/dL RDW (11.5-15.5) % Plt Count (150-450) k/uL MPV Neutrophils % % Lymphocytes % % Monocytes % % Eosinophils % % Basophils % % Neutrophils # (1.3-7.7) k/uL Lymphocytes # (1.0-4.8) k/uL Monocytes # (0-1.0) k/uL Eosinophils # (0-0.7) k/uL Basophils # (0-0.2) k/uL PT (10.0-12.5) sec INR (<1.2) APTT (22.0-30.0) sec D-Dimer (<0.60) mg/L FEU Sodium 139 (137-145) mmol/L Potassium 3.6 (3.5-5.1) mmol/L Chloride 105 (98-107) mmol/L Carbon Dioxide 24 (22-30) mmol/L Anion Gap 10 mmol/L BUN 14 (7-17) mg/dL Creatinine 0.72 (0.52-1.04) mg/dL Est GFR (CKD-EPI)AfAm >90 (>60 ml/min/1.73 sqM) Est GFR (CKD-EPI)NonAf >90 (>60 ml/min/1.73 sqM) Glucose 102 H (74-99) mg/dL Plasma Lactic Acid Richard (0.7-2.0) mmol/L Calcium 9.8 (8.4-10.2) mg/dL Total Bilirubin 0.4 (0.2-1.3) mg/dL AST 31 (14-36) U/L ALT 30 (4-34) U/L Alkaline Phosphatase 73 (38-126) U/L Troponin I <0.012 (0.000-0.034) ng/mL Total Protein 8.2 (6.3-8.2) g/dL Albumin 4.5 (3.5-5.0) g/dL Disposition Clinical Impression: Dyspnea, Pleuritis Disposition: HOME SELF-CARE Condition: Stable Instructions (If sedation given, give patient instructions): Chest Pain (ED), Dyspnea (ED) Additional Instructions: Please take anti-inflammatory medications such as ibuprofen for pain and inflammation. Return to the emergency department for new or worsening symptoms. Is patient prescribed a controlled substance at d/c from ED?: No Referrals: Dragan Boudreaux MD [Primary Care Provider] - 1-2 days
[2023-07-24] MEDS: KETOROLAC 15 MG/ML 1 ML VIAL IVP STA (15:49)
[2023-07-24] MEDS: ONDANSETRON 4 MG/2 ML VIAL IVP STA (15:50)
--- NOTE | 2023-07-24 16:11 | XR ---
EXAMINATION TYPE: XR chest 2V DATE OF EXAM: 07/24/2023 4:07 PM CLINICAL INDICATION:Female, 42 years old with history of difficulty breathing; [facility] COMPARISON: None TECHNIQUE: XR chest 2V Frontal and lateral views of the chest. FINDINGS: Lungs/Pleura: There is no evidence of pleural effusion, focal consolidation, or pneumothorax. Pulmonary vascularity: Unremarkable. Heart/mediastinum: Cardiomediastinal silhouette is unremarkable. Musculoskeletal: No acute osseous pathology. Other findings: None IMPRESSION: No acute cardiopulmonary disease/process.
[2023-07-24 16:16] LABS: Basophils # (A) 0.1 k/uL (0-0.2); Basophils % (A) 1 %; Eosinophils % (A) 1 %; HCT 42.1 % (34.0-46.0); HGB 14.4 gm/dL (11.4-16.0); Lymphocytes # (A) 2.4 k/uL (1.0-4.8); Lymphocytes % (A) 39 %; MCH 31.3 pg (25.0-35.0); MCHC 34.3 g/dL (31.0-37.0); MCV 91.3 fL (80.0-100.0); Mean Platelet Volume 7.5; Monocytes # (A) 0.4 k/uL (0-1.0); Monocytes % (A) 7 %; Neutrophils # (A) 3.1 k/uL (1.3-7.7); Neutrophils % (A) 50 %; Platelet Count 492 k/uL (150-450); RDW 11.9 % (11.5-15.5); WBC 6.1 k/uL (3.8-10.6)
[2023-07-24 16:26] LABS: INR 0.9 (<1.2); Partial Thromboplastin Time 23.9 sec (22.0-30.0); Prothrombin Time 10.4 sec (10.0-12.5)
[2023-07-24 16:47] LABS: ALT 30 U/L (4-34); AST 31 U/L (14-36); African American GFR (CKD) >90 (>60 ml/min/1.73 sqM); Albumin 4.5 g/dL (3.5-5.0); Alkaline Phosphatase 73 U/L (38-126); Anion Gap 10 mmol/L; Blood Urea Nitrogen 14 mg/dL (7-17); Calcium 9.8 mg/dL (8.4-10.2); Carbon Dioxide 24 mmol/L (22-30); Chloride 105 mmol/L (98-107); Glucose 102 mg/dL (74-99); Non-African American GFR(CKD) >90 (>60 ml/min/1.73 sqM); Potassium 3.6 mmol/L (3.5-5.1); Sodium 139 mmol/L (137-145); Total Bilirubin 0.4 mg/dL (0.2-1.3); Total Protein 8.2 g/dL (6.3-8.2)
[2023-07-24 17:55] VITALS: BP 139/85; PULSE 90; RESP 20
== END 2023-07-24 17:51 | disposition home or self-care (01) ==
LOC: EC 14:41
DX: R06.02 Shortness of breath (principal); R09.1 Pleurisy; M54.9 Dorsalgia, unspecified; Z91.018 Allergy to other foods; Z86.16 Personal history of COVID-19
CPT/HCPCS: 36415; 93005; 85379; 80053; 83605; 84484; 85025; 85610; 85730; 71046; 99285; 96374; 96375; J2405; J1885

== ENCOUNTER → 2023-11-22 | Outpatient (CLI) | payer BC ==
[2023-11-23 03:49] LABS: Thyroid Peroxidase Antibodies <9.0 U/mL (0.0-33.0)
[2023-11-23 04:39] LABS: Gliadin AB IgA, Deaminated Negative (Negative); Gliadin AB IgA, Unit 0.5 U/mL; Gliadin AB IgG, Deaminated Negative (Negative); Gliadin AB IgG, Unit <0.4 U/mL
--- NOTE | 2023-11-24 12:40 | US ---
EXAMINATION TYPE: US thyroid st tissue head/neck DATE OF EXAM: 11/22/2023 COMPARISON: NONE CLINICAL INDICATION: Female, 43 years old with history of R22.1 LEFT NECK MASS; left medial clavicle palpable area TECHNIQUE: several iamges taken at patients area of concern FINDINGS: the patients palpable area corresponds to the insertion of the sternocleidomastoid muscle. No lymph nodes, masses or arthritic changes noted at palpable area. Patient complains of a lost voice since July. Ancillary imaging taken of the vocal cord area. Color doppler appears less reactive on the left side when patient is asked to hum. IMPRESSION: No discrete masses seen. Correlate clinically. Consider CT if felt indicated.
== END | disposition home or self-care (01) ==
LOC: RADUSWWP 16:18
PROVIDERS: ATTEND Otolaryngology
DX: D49.89 Neoplasm of unspecified behavior of other specified sites (principal); R22.1 Localized swelling, mass and lump, neck; K90.49 Malabsorption due to intolerance, not elsewhere classified; J38.5 Laryngeal spasm
CPT/HCPCS: 76536; 83516; 86376

== ENCOUNTER → 2024-03-11 | Outpatient (CLI) | payer BC ==
--- NOTE | 2024-03-12 12:30 | MM ---
Reason for Exam: Screening (asymptomatic). Last screening mammogram was performed 12 month(s) ago. Patient History: Menarche at age 11. First Full-Term at age 35. Late child-bearing (after 30). Postmenopausal. Risk Values: Shahnaz 5 year model risk: 1.0%. NCI Lifetime model risk: 14.6%. Prior Study Comparison: 01/01/2022 Bilateral MG 3D screening mammo w/cad, [facility]. 02/13/2023 Bilateral MG 3D screening mammo w/cad, [facility]. Tissue Density: The breasts are heterogeneously dense, which may obscure small masses. Findings: Analyzed By CAD. Nodular focal asymmetry left upper outer quadrant middle depth not clearly seen previously. Otherwise, other areas of asymmetric density are unchanged. Further evaluation is recommended. Overall Assessment: Incomplete: need additional imaging evaluation, BI-RAD 0 Management: Special View Mammogram of the left breast. Diagnostic Breast Ultrasound of the left breast. [facility] will attempt to contact patient to return for supplemental views and ultrasound if indicated. [facility], , 03/12/2024 12:27 PM. Electronically signed and approved by: Kristina Ibanez M.D. Radiologist
== END | disposition home or self-care (01) ==
LOC: RADMAMWWP 08:47
PROVIDERS: ATTEND Obstetrics & Gynecology
CPT/HCPCS: 77063; 77067

== ENCOUNTER → 2024-03-18 | Outpatient (CLI) | payer BC ==
--- NOTE | 2024-03-18 09:03 | MM ---
Reason for Exam: Additional evaluation requested from abnormal screening. Last screening mammogram was performed less than 1 month ago. Patient History: Menarche at age 11. First Full-Term at age 35. Late child-bearing (after 30). Postmenopausal. Risk Values: Shahnaz 5 year model risk: 1.0%. NCI Lifetime model risk: 14.6%. Prior Study Comparison: 01/01/2022 Bilateral MG 3D screening mammo w/cad, [facility]. 02/13/2023 Bilateral MG 3D screening mammo w/cad, [facility]. 03/11/2024 Bilateral MG 3D screening mammo w/cad, [facility]. Tissue Density: Left: The breasts are heterogeneously dense, which may obscure small masses. Findings: Analyzed By CAD. The pattern is symmetrical. No persistent nodularity in the upper outer mid left breast that compression views. Medial and lateral views appear normal. No suspicious groups of microcalcifications, spiculated or lobular masses, architectural distortion or other secondary signs of malignancy are mammographically apparent. Overall Assessment: Probably benign, BI-RAD 3 Management: Diagnostic Mammogram of the left breast in 6 months. A negative mammogram report should not preclude additional follow up of suspicious palpable abnormalities. Patient should continue monthly self breast exam. A clinical breast exam by your physician is recommended on an annual basis and results should be correlated with mammographic findings. Note on Shahnaz scores and lifetime risk: 1. A Shahnaz score greater than 3% is considered moderate risk. If this is the case, consider specialist referral to assess eligibility for a risk reducing agent. 2. If overall lifetime risk for the development of breast cancer is 20% or higher, the patient may qualify for future screening with alternating mammogram and breast MRI. [facility], , 03/18/2024 9:01 AM. Electronically signed and approved by: Jean-Paul Dawson D.O. Radiologis
== END | disposition home or self-care (01) ==
LOC: RADMAMWWP 08:41
PROVIDERS: ATTEND Obstetrics & Gynecology
DX: R92.8 Other abnormal and inconclusive findings on diagnostic imaging of breast (principal); Z78.0 Asymptomatic menopausal state; R92.332 Mammographic heterogeneous density, left breast
CPT/HCPCS: 77061; 77065

== ENCOUNTER 2024-06-29 21:00 | Emergency (ER) | payer BC ==
[2024-06-29 21:13] VITALS: RESP 18; TEMP 97.2
[2024-06-29] MEDS: SODIUM CHLORIDE 0.9% 500 ML 500 ML IV STA (21:37)
[2024-06-29 21:53] LABS: Basophils # (A) 0.1 k/uL (0-0.2); Basophils % (A) 1 %; Eosinophils # (A) 0.3 k/uL (0-0.7); Eosinophils % (A) 3 %; HCT 43.9 % (34.0-46.0); HGB 14.1 gm/dL (11.4-16.0); Lymphocytes # (A) 1.8 k/uL (1.0-4.8); Lymphocytes % (A) 23 %; MCH 30.4 pg (25.0-35.0); MCHC 32.1 g/dL (31.0-37.0); MCV 94.6 fL (80.0-100.0); Mean Platelet Volume 6.8; Monocytes # (A) 0.3 k/uL (0-1.0); Monocytes % (A) 4 %; Neutrophils # (A) 5.2 k/uL (1.3-7.7); Neutrophils % (A) 66 %; Platelet Count 345 k/uL (150-450); RBC 4.64 m/uL (3.80-5.40); WBC 7.8 k/uL (3.8-10.6)
--- NOTE | 2024-06-29 21:56 | ED ---
General Adult HPI - General Chief complaint: Syncope Stated complaint: Syncope Time Seen by Provider: 06/29/24 21:08 Source: patient Mode of arrival: EMS Limitations: no limitations - History of Present Illness Initial comments: This patient is a 43-year-old woman who presents to have evaluation after she had passed out twice. The patient states that she was feeling funny and then passed out. Bystanders did not note tonic-clonic activity there was no loss of continence. The patient denies injury. She had had 2 glasses of wine but states she was not feeling intoxicated and does not believe this would have caused the episodes. The patient does relate that she had been previously diagnosed with AV malformation and is due to see a specialist regarding this. The patient is denying headache. No change in vision. She does state that her arm does feel like the strength is not normal. Onset/Timin -: hour(s) Severity scale (1-10): 0 Consistency: intermittent Improves with: none Worsens with: none Associated Symptoms: syncope, weakness Treatments Prior to Arrival: none - Related Data Home Medications Medication Instructions Recorded Confirmed Lo Loestrin Fe 1-10 1 tab PO DAILY@0700 04/20/19 11/23/22 Dextroamphetamine/Amphetamine 15 mg PO DAILY@69911/23/22 11/23/22 [Adderall Xr 15 mg Capsule] Ethosuximide 250 mg PO BID@0800,199911/23/22 11/23/22 Previous Rx's Medication Instructions Recorded Aspirin 81 mg PO DAILY 30 Days #30 tab 11/24/22 Atorvastatin [Lipitor] 40 mg PO HS 30 Days #30 tab 11/24/22 Allergies Allergy/AdvReac Type Severity Reaction Status Date / Time amoxicillin Allergy Anaphylaxis Verified 06/29/24 21:13 gluten Allergy Unknown Verified 06/29/24 21:13 mupirocin [From Bactroban] Allergy Anaphylaxis Verified 06/29/24 21:13 Review of Systems ROS Statement: Those systems with pertinent positive or pertinent negative responses have been documented in the HPI. ROS Other: All systems not noted in ROS Statement are negative. Constitutional: Denies: fever, chills, weakness Eyes: Denies: eye pain, vision change ENT: Denies: hearing loss Respiratory: Denies: cough, dyspnea Cardiovascular: Reports: syncope. Denies: chest pain, palpitations, dyspnea on exertion, orthopnea, edema Gastrointestinal: Denies: abdominal pain, nausea, vomiting, diarrhea Genitourinary: Denies: dysuria, hematuria Musculoskeletal: Denies: back pain Skin: Denies: rash Neurological: Reports: weakness. Denies: headache, numbness, paresthesias, confusion Hematological/Lymphatic: Denies: easy bleeding Past Medical History Past Medical History: Seizure Disorder Additional Past Medical History / Comment(s): gastritis, ovarian cysts, long COVID, 1, TIA (pt states multiple and she doesn't go to ED when they happen.) History of Any Multi-Drug Resistant Organisms: None Reported Past Surgical History: Cholecystectomy Additional Past Surgical History / Comment(s): EGD, uterine wall and ovarian cyst removal Past Anesthesia/Blood Transfusion Reactions: No Reported Reaction Past Psychological History: No Psychological Hx Reported Smoking Status: Never smoker Past Alcohol Use History: Occasional Past Drug Use History: None Reported - Past Family History Mother Additional Family Medical History / Comment(s): TIAs cysts hysterectomy Father Family Medical History: No Reported History General Exam General appearance: alert, in no apparent distress, anxious Head exam: Present: atraumatic, normocephalic Eye exam: Present: normal appearance, PERRL, EOMI. Absent: scleral icterus, conjunctival injection, nystagmus ENT exam: Present: normal oropharynx Neck exam: Present: normal inspection, full ROM. Absent: meningismus Respiratory exam: Present: normal lung sounds bilaterally. Absent: respiratory distress, wheezes, rales, rhonchi, stridor, accessory muscle use Cardiovascular Exam: Present: regular rate, normal rhythm, normal heart sounds. Absent: systolic murmur, diastolic murmur, rubs, gallop GI/Abdominal exam: Present: soft. Absent: distended, tenderness, guarding, rebound, rigid, mass Extremities exam: Present: normal inspection, normal capillary refill. Absent: pedal edema, calf tenderness Back exam: Present: normal inspection. Absent: CVA tenderness (R), CVA tenderness (L) Neurological exam: Present: alert, oriented X3, CN II-XII intact. Absent: motor sensory deficit Skin exam: Present: warm, dry, intact, normal color. Absent: rash Course Vital Signs 06/29/24 06/29/24 06/29/24 21:08 23:00 23:48 Temperature 97.2 F L Pulse Rate 101 H 87 87 Respiratory 18 18 18 Rate Blood Pressure 148/97 138/84 141/96 O2 Sat by Pulse 98 96 96 Oximetry EKG Findings - EKG Results: EKG: interpreted by ERMD, sinus rhythm (Rate 90 bpm), normal axis, normal QRS - Blocks, [place], Hypertrophy, ST Abn: Repolarization changes or abnormalities: nonspecific abnormality, ST segment, and/or T wave Medical Decision Making - Medical Decision Making The patient had chest x-ray that I interpreted as negative for acute infiltrate, pneumothorax, congestive heart failure The patient had CT of the brain that I interpreted as negative for acute intracranial hemorrhage, negative for mass effect or midline shift. The patient had CT angiogram of the neck and brain that I interpreted as negative for acute intracranial hemorrhage, negative for acute obstruction Was pt. sent in by a medical professional or institution ([facility], [facility], urgent care, hospital, or [facility]...) When possible be specific @ -[No] Did you speak to anyone other than the patient for history (EMS, parent, family, police, friend...)? What history was obtained from this source @ -[Patient's contributed information about previous similar episode Did you review nursing and triage notes (agree or disagree)? Why? @ -[I reviewed and agree with nursing and triage notes] Were old charts reviewed (outside hosp., previous admission, EMS record, old EKG, old radiological studies, urgent care reports/EKG's, [facility] records)? Report findings @ -[No old charts were reviewed] Differential Diagnosis (chest pain, altered mental status, abdominal pain women, abdominal pain men, vaginal bleeding, weakness, fever, dyspnea, syncope, headache, dizziness, GI bleed, back pain, seizure, CVA, palpatations, mental health, musculoskeletal)? @ -[Differential Syncope: Valvular disease, hypertrophic cardiomyopathy, pulmonary embolism, tamponade, tachycardia, bradycardia, NM, hypovolemia, hemorrhage, dissection, anemia, intracranial hemorrhage, seizure, hypoglycemia, carbon monoxide poisoning, this is not meant to be an all-inclusive list. Differential CVA Ischemic stroke, hemorrhagic stroke, brain tumor, atypical migraine, Wernicke's encephalopathy, seizure, multiple sclerosis, meningitis, encephalitis, hypoglycemia, Guillain-Molina, electrolytes disturbance, myasthenia gravis.... This is not meant to be an all-inclusive list EKG interpreted by me (3pts min.). @ -[I interpreted as above] X-rays interpreted by me (1pt min.). @ -[I interpreted as above CT interpreted by me (1pt min.). @ -[I interpreted as above U/S interpreted by me (1pt. min.). @ -[None done] What testing was considered but not performed or refused? (CT, X-rays, U/S, labs)? Why? @ -[None] What meds were considered but not given or refused? Why? @ -[None] Did you discuss the management of the patient with other professionals (professionals i.e. , PA, [facility], lab, RT, psych nurse, perinatal social worker, accountant, teacher, chief growth officer, case management rn)? Give summary @ -[No] Was smoking cessation discussed for >3mins.? @ -[No] Was critical care preformed (if so, how long)? @ -[No] Were there social determinants of health that impacted care today? How? (Homelessness, low income, unemployed, alcoholism, drug addiction, transportation, low edu. Level, literacy, decrease access to med. care, assisted, rehab)? @ -[No] Was there de-escalation of care discussed even if they declined (Discuss DNR or withdrawal of care, Hospice)? DNR status @ -[No] What co-morbidities impacted this encounter? (DM, HTN, Smoking, COPD, CAD, Cancer, CVA, ARF, Chemo, Hep., AIDS, mental health diagnosis, sleep apnea, m orbid obesity)? @ -[History of AV malformation Was patient admitted / discharged? Hospital course, mention meds given and route, prescriptions, significant lab abnormalities, going to OR and other pe rtinent info. @ -[Patient is 43-year-old woman here with syncopal episode. There may have been some unilateral arm strength difference, but this had resolved. At this point it appears patient most likely had syncopal episode though brief TIA is possible. She is feeling better and would like to go home. I did offer admission to have neurology consultation, but patient states she is due to see a specialist however this is still weeks away. We did discuss appropriate further care and they return parameters. Undiagnosed new problem with uncertain prognosis? @ -[No] Drug Therapy requiring intensive monitoring for toxicity (Heparin, Nitro, Insulin, Cardizem)? @ -[No] Were any procedures done? @ -[No] Diagnosis/symptom? @ -[Acute syncopal episode Possible TIA Acute, or Chronic, or Acute on Chronic? @ -[Acute Uncomplicated (without systemic symptoms) or Complicated (systemic symptoms)? @ -[Uncomplicated Side effects of treatment? @ -[No] Exacerbation, Progression, or Severe Exacerbation? @ -[No] Poses a threat to life or bodily function? How? (Chest pain, USA, NM, pneumonia, PE, COPD, DKA, ARF, appy, cholecystitis, CVA, Diverticulitis, Homicidal, Suicidal, threat to staff... and all critical care pts) @ -[Yes, requires further specialist evaluation All treatments are based on ideal body weight as in ED triage - Lab Data Result diagrams: 06/29/24 21:24 06/29/24 21:24 Lab Results 06/29/24 06/29/24 06/29/24 Range/Units 21:24 21:24 21:24 WBC 7.8 (3.8-10.6) k/uL RBC 4.64 (3.80-5.40) m/uL Hgb 14.1 (11.4-16.0) gm/dL Hct 43.9 (34.0-46.0) % MCV 94.6 (80.0-100.0) fL MCH 30.4 (25.0-35.0) pg MCHC 32.1 (31.0-37.0) g/dL RDW 12.0 (11.5-15.5) % Plt Count 345 (150-450) k/uL MPV 6.8 Neutrophils % 66 % Lymphocytes % 23 % Monocytes % 4 % Eosinophils % 3 % Basophils % 1 % Neutrophils # 5.2 (1.3-7.7) k/uL Lymphocytes # 1.8 (1.0-4.8) k/uL Monocytes # 0.3 (0-1.0) k/uL Eosinophils # 0.3 (0-0.7) k/uL Basophils # 0.1 (0-0.2) k/uL PT 10.6 (10.0-12.5) sec INR 0.9 (<1.2) APTT 23.8 (22.0-30.0) sec Sodium 142 (137-145) mmol/L Potassium 4.4 (3.5-5.1) mmol/L Chloride 109 H (98-107) mmol/L Carbon Dioxide 21 L (22-30) mmol/L Anion Gap 12 mmol/L BUN 5 L (7-17) mg/dL Creatinine 0.54 (0.52-1.04) mg/dL Est GFR (CKD-EPI)AfAm >90 (>60 ml/min/1.73 sqM) Est GFR (CKD-EPI)NonAf >90 (>60 ml/min/1.73 sqM) Glucose 83 (74-99) mg/dL Calcium 8.6 (8.4-10.2) mg/dL Total Bilirubin 0.5 (0.2-1.3) mg/dL AST 26 (14-36) U/L ALT 15 (4-34) U/L Alkaline Phosphatase 69 (38-126) U/L Troponin I (0.000-0.034) ng/mL Total Protein 7.6 (6.3-8.2) g/dL Albumin 4.4 (3.5-5.0) g/dL 06/29/24 Range/Units 21:24 WBC (3.8-10.6) k/uL RBC (3.80-5.40) m/uL Hgb (11.4-16.0) gm/dL Hct (34.0-46.0) % MCV (80.0-100.0) fL MCH (25.0-35.0) pg MCHC (31.0-37.0) g/dL RDW (11.5-15.5) % Plt Count (150-450) k/uL MPV Neutrophils % % Lymphocytes % % Monocytes % % Eosinophils % % Basophils % % Neutrophils # (1.3-7.7) k/uL Lymphocytes # (1.0-4.8) k/uL Monocytes # (0-1.0) k/uL Eosinophils # (0-0.7) k/uL Basophils # (0-0.2) k/uL PT (10.0-12.5) sec INR (<1.2) APTT (22.0-30.0) sec Sodium (137-145) mmol/L Potassium (3.5-5.1) mmol/L Chloride (98-107) mmol/L Carbon Dioxide (22-30) mmol/L Anion Gap mmol/L BUN (7-17) mg/dL Creatinine (0.52-1.04) mg/dL Est GFR (CKD-EPI)AfAm (>60 ml/min/1.73 sqM) Est GFR (CKD-EPI)NonAf (>60 ml/min/1.73 sqM) Glucose (74-99) mg/dL Calcium (8.4-10.2) mg/dL Total Bilirubin (0.2-1.3) mg/dL AST (14-36) U/L ALT (4-34) U/L Alkaline Phosphatase (38-126) U/L Troponin I <0.012 (0.000-0.034) ng/mL Total Protein (6.3-8.2) g/dL Albumin (3.5-5.0) g/dL Disposition Clinical Impression: TIA (transient ischemic attack) Disposition: HOME SELF-CARE Condition: Good Instructions (If sedation given, give patient instructions): Transient Ischemic Attack (ED) Is patient prescribed a controlled substance at d/c from ED?: No Referrals: Dragan Boudreaux MD [Primary Care Provider] - 1-2 days
--- NOTE | 2024-06-29 22:05 | XR ---
EXAMINATION TYPE: XR chest 2V DATE OF EXAM: 06/29/2024 10:01 PM COMPARISON: 07/24/2023 CLINICAL INDICATION: Female, 43 years old with history of syncope, TECHNIQUE: XR chest 2V view(s) obtained. FINDINGS: The heart size is normal. The pulmonary vasculature is normal. The lungs are clear. IMPRESSION: 1. No acute pulmonary process. [facility], , 06/29/2024 10:03 PM
[2024-06-29 22:07] LABS: ALT 15 U/L (4-34); AST 26 U/L (14-36); African American GFR (CKD) >90 (>60 ml/min/1.73 sqM); Albumin 4.4 g/dL (3.5-5.0); Alkaline Phosphatase 69 U/L (38-126); Anion Gap 12 mmol/L; Blood Urea Nitrogen 5 mg/dL (7-17); Calcium 8.6 mg/dL (8.4-10.2); Carbon Dioxide 21 mmol/L (22-30); Chloride 109 mmol/L (98-107); Glucose 83 mg/dL (74-99); Non-African American GFR(CKD) >90 (>60 ml/min/1.73 sqM); Potassium 4.4 mmol/L (3.5-5.1); Sodium 142 mmol/L (137-145); Total Bilirubin 0.5 mg/dL (0.2-1.3); Total Protein 7.6 g/dL (6.3-8.2)
[2024-06-29 22:10] LABS: INR 0.9 (<1.2); Partial Thromboplastin Time 23.8 sec (22.0-30.0); Prothrombin Time 10.6 sec (10.0-12.5)
--- NOTE | 2024-06-29 22:53 | CT ---
EXAM: CT Head Without Intravenous Contrast CLINICAL HISTORY: ITS.REASON CT Reason: Neuro deficit, acute, stroke suspected TECHNIQUE: Axial computed tomography images of the head/brain without intravenous contrast. CTDI is 48.8 mGy and DLP is 1157 mGy-cm. This CT exam was performed using one or more of the following dose reduction techniques: automated exposure control, adjustment of the mA and/or kV according to patient size, and/or use of iterative reconstruction technique. COMPARISON: No relevant prior studies available. FINDINGS: Brain: No hemorrhage, extra-axial fluid collection, mass effect, or edema. Ventricles: Unremarkable. Bones/joints: Unremarkable. No fracture. Soft tissues: Unremarkable. Sinuses: No acute sinusitis. Mastoid air cells: Unremarkable as visualized. IMPRESSION: 1. No acute intracranial abnormality.
--- NOTE | 2024-06-29 22:55 | CT ---
EXAM: CT Angiography Head With Intravenous Contrast CLINICAL HISTORY: ITS.REASON CT Reason: Neuro deficit, acute, stroke suspected TECHNIQUE: Axial computed tomographic angiography images of the head with intravenous contrast. CTDI is 14.8 mGy and DLP is 12 mGy-cm. This CT exam was performed using one or more of the following dose reduction techniques: automated exposure control, adjustment of the mA and/or kV according to patient size, and/or use of iterative reconstruction technique. MIP reconstructed images were created and reviewed. COMPARISON: No relevant prior studies available. FINDINGS: Right internal carotid artery: Intracranial segment is patent with no significant stenosis. No aneurysm. Right anterior cerebral artery: No occlusion or significant stenosis. No aneurysm. Right middle cerebral artery: No occlusion or significant stenosis. No aneurysm. Right posterior cerebral artery: No occlusion or significant stenosis. No aneurysm. Right vertebral artery: Unremarkable as visualized. Left internal carotid artery: Intracranial segment is patent with no significant stenosis. No aneurysm. Left anterior cerebral artery: No occlusion or significant stenosis. No aneurysm. Left middle cerebral artery: No occlusion or significant stenosis. No aneurysm. Left posterior cerebral artery: No occlusion or significant stenosis. No aneurysm. Left vertebral artery: Unremarkable as visualized. Basilar artery: No occlusion or significant stenosis. No aneurysm. IMPRESSION: Normal head CTA. EXAM: CT Angiography Neck With Intravenous Contrast CLINICAL HISTORY: ITS.REASON CT Reason: Neuro deficit, acute, stroke suspected TECHNIQUE: Routine carotid CT angiography protocol was performed with intravenous contrast. NASCET criteria using the distal ICAs for comparison were used for evaluation of stenoses. CTDI is 7.4 mGy and DLP is 320.5 mGy-cm. This CT exam was performed using one or more of the following dose reduction techniques: automated exposure control, adjustment of the mA and/or kV according to patient size, and/or use of iterative reconstruction technique. MIP reconstructed images were created and reviewed. COMPARISON: None. FINDINGS: VASCULATURE: Right common carotid artery: No occlusion or significant stenosis. No dissection. Right internal carotid artery: Extracranial segment is patent with no occlusion or significant stenosis. No dissection. Right vertebral artery: No occlusion or significant stenosis. No dissection. Left common carotid artery: No occlusion or significant stenosis. No dissection. Left internal carotid artery: Extracranial segment is patent with no occlusion or significant stenosis. No dissection. Left vertebral artery: No occlusion or significant stenosis. No dissection. NECK: Bones/joints: Unremarkable. No acute fracture. Soft tissues: Unremarkable. Thyroid: Multinodular thyroid gland. Lung apices: Clear. CAROTID STENOSIS REFERENCE USING NASCET CRITERIA: % ICA stenosis = (1 - narrowest ICA diameter/diameter of distal cervical ICA) x 100. Mild - <50% stenosis. Moderate - 50-69% stenosis. Severe - 70-94% stenosis. Near occlusion - 95-99% stenosis. Occluded - 100% stenosis. IMPRESSION: No acute findings in the arteries of the neck.
[2024-06-29 23:22] VITALS: PULSE 87
[2024-06-29 23:49] VITALS: BP 141/96
== END 2024-06-29 23:49 | disposition home or self-care (01) ==
LOC: EC 21:00
DX: G45.9 Transient cerebral ischemic attack, unspecified (principal)
CPT/HCPCS: 36415; 93005; 80053; 84484; 85025; 85610; 85730; 71046; 70496; 70450; 70498; 99285; Q9967

== ENCOUNTER 2024-07-17 21:23 | Observation (INO) | payer BC ==
--- NOTE | 2024-07-17 21:52 | XR ---
EXAMINATION TYPE: XR chest 1V portable DATE OF EXAM: 07/17/2024 9:44 PM COMPARISON: 06/29/2024 CLINICAL INDICATION: Female, 43 years old with history of altered mental status, TECHNIQUE: Single frontal view of the chest is obtained. FINDINGS: There is no focal air space opacity, pleural effusion, or pneumothorax seen. The cardiac silhouette size is within normal limits. The osseous structures are intact. IMPRESSION: No acute process. [facility], , 07/17/2024 9:49 PM
--- NOTE | 2024-07-17 21:53 | CT ---
EXAMINATION TYPE: CODE STROKE: CT brain wo contr DATE OF EXAM: 07/17/2024 COMPARISON: None CLINICAL INDICATION: Female, 43 years old with history of Neuro deficit, acute, stroke suspected; PHH , NEURO DEFICIT, ACUTE. CODE STROKE, LAST SEEN WELL 9PM TECHNIQUE: CT of the brain performed without contrast with sagittal and coronal reformats. CT DLP: 1116.[address] CTDI: mGy Automated exposure control for dose reduction was used. FINDINGS: There is no acute intracranial hemorrhage, mass effect, or midline shift identified. The ventricles and sulci are within normal limits in size. The globes are intact and the visualized sinuses are korey ar. IMPRESSION: No acute intracranial hemorrhage, mass effect, or midline shift is seen. [facility], , 07/17/2024 9:50 PM
--- NOTE | 2024-07-17 21:57 | CT ---
EXAMINATION TYPE: CT angio head neck DATE OF EXAM: 07/17/2024 9:53 PM COMPARISON: None. CLINICAL INDICATION: Female, 43 years old with history of Neuro deficit, acute, stroke suspected, KAREEM RO DEFICIT, ACUTE. CODE STROKE, LAST SEEN WELL 9PM, TECHNIQUE: Axially acquired helical CT Angiogram of the Neck was obtained with and without contrast. Examination is limited by lack of 3-D images. Per the technologist ..."Unable to do ISP 3Ds, cannot log in, water server drop down box unverifiable" IV CONTRAST: with IV Contrast, patient injected with 65ML mL of Isovue 370. (None if empty) CT DLP: 388.3 mGycm, Automated exposure control for dose reduction was used. FINDINGS: NECK: Right carotid system: No significant plaque is seen of the right common carotid artery. There is no significant plaque also noted at the carotid bulb and proximal ICA. No significant diameter reductio n. ECA is patent. Right vertebral artery appears unremarkable. Left carotid system: No significant plaque is seen of the left common carotid artery. There is no si gnificant plaque also noted at the carotid bulb and proximal ICA. No significant diameter reduction. ECA is patent. Left vertebral artery appears unremarkable. BRAIN: Vertebrobasilar system as well as intracranial portions of the internal carotid arteries and their ma ralph tributaries are patent. I do not see evidence for sizable aneurysm or vascular malformation. Pl ease note MRI provides greater sensitivity and specificity. Visualized brain appears grossly unremar kable. IMPRESSION: 1. No evidence for hemodynamically significant stenosis at the carotid bifurcations. No significant diameter reduction to account for the patient's symptoms. 2. No evidence for intracranial aneurysm or high-grade stenosis. Comment:Examination is limited by lack of 3-D images. Per the technologist ..."Unable to do ISP 3Ds, cannot log in, water server drop down box unverifiable" [facility], , 07/17/2024 9:54 PM
[2024-07-17 22:30] LABS: Basophils # (A) 0.1 k/uL (0-0.2); Basophils % (A) 1 %; Eosinophils # (A) 0.3 k/uL (0-0.7); Eosinophils % (A) 3 %; HCT 45.2 % (34.0-46.0); HGB 14.5 gm/dL (11.4-16.0); Lymphocytes # (A) 1.8 k/uL (1.0-4.8); Lymphocytes % (A) 20 %; MCH 30.6 pg (25.0-35.0); MCHC 32.1 g/dL (31.0-37.0); MCV 95.2 fL (80.0-100.0); Mean Platelet Volume 6.9; Monocytes # (A) 0.3 k/uL (0-1.0); Monocytes % (A) 3 %; Neutrophils # (A) 6.6 k/uL (1.3-7.7); Neutrophils % (A) 71 %; Platelet Count 383 k/uL (150-450); RBC 4.75 m/uL (3.80-5.40); RDW 12.1 % (11.5-15.5); WBC 9.2 k/uL (3.8-10.6)
[2024-07-17 22:33] LABS: INR 0.9 (<1.2); Partial Thromboplastin Time 22.4 sec (22.0-30.0); Prothrombin Time 10.3 sec (10.0-12.5)
[2024-07-17 22:35] LABS: ALT 14 U/L (4-34); AST 22 U/L (14-36); African American GFR (CKD) >90 (>60 ml/min/1.73 sqM); Albumin 4.5 g/dL (3.5-5.0); Alkaline Phosphatase 72 U/L (38-126); Anion Gap 11 mmol/L; Blood Urea Nitrogen 10 mg/dL (7-17); Calcium 9.1 mg/dL (8.4-10.2); Carbon Dioxide 23 mmol/L (22-30); Chloride 106 mmol/L (98-107); Creatine Kinase 46 U/L (30-135); Glucose 75 mg/dL (74-99); Non-African American GFR(CKD) >90 (>60 ml/min/1.73 sqM); Potassium 4.5 mmol/L (3.5-5.1); Sodium 140 mmol/L (137-145); Total Bilirubin 0.4 mg/dL (0.2-1.3); Total Protein 7.8 g/dL (6.3-8.2)
[2024-07-17 23:30] LABS: Alcohol 164 mg/dL
--- NOTE | 2024-07-18 00:16 | ED ---
Neuro HPI - General Chief Complaint: Neuro Symptoms/Deficit Stated Complaint: Syncope Source: family, EMS Mode of arrival: EMS Limitations: language barrier, physical limitation - History of Present Illness Is the patient presenting with stroke symptoms?: Yes Initial Comments: 43-year-old female with past medical history of pulmonary AVM, seizure disorder who presents to the emergency department with possible strokelike symptoms. EMS provides a history. States that the patient had sudden onset of symptoms around 9 PM tonight. She started having speech difficulties and weakness on her left side. EMS was called. They did state that she had improvement in her symptoms which then got worse again. She has had multiple TIAs in the past without residual deficit. She reports 2 pulmonary AVM history and is supposed to have surgery in a few weeks for this diagnosis. She does take a full dose aspirin every day and already took it today. She denies any head injuries. No fevers. No concern for . Patient does not take any blood thinners. No other alleviating, precipitating modifying factors - Related Data Home Medications: Home Medications Medication Instructions Recorded Confirmed Dayana Dixon Fe 1-10 1 tab PO DAILY@0700 04/20/19 11/23/22 Dextroamphetamine/Amphetamine 15 mg PO DAILY@0711/23/22 11/23/22 [Adderall Xr 15 mg Capsule] Ethosuximide 250 mg PO BID@0800,199911/23/22 11/23/22 Previous Rx's Medication Instructions Recorded Aspirin 81 mg PO DAILY 30 Days #30 tab 11/24/22 Atorvastatin [Lipitor] 40 mg PO HS 30 Days #30 tab 11/24/22 Allergies/Adverse Reactions: Allergies Allergy/AdvReac Type Severity Reaction Status Date / Time amoxicillin Allergy Anaphylaxis Verified 06/29/24 21:13 gluten Allergy Unknown Verified 06/29/24 21:13 mupirocin [From Bactroban] Allergy Anaphylaxis Verified 06/29/24 21:13 Review of Systems ROS Statement: Those systems with pertinent positive or pertinent negative responses have been documented in the HPI. ROS Other: All systems not noted in ROS Statement are negative. General Exam Limitations: language barrier, physical limitation Stroke MDM - Lab Data Result diagrams: 07/17/24 22:00 07/17/24 22:00 Lab Results 07/17/24 07/17/24 07/17/24 Range/Units 22:00 22:00 22:00 WBC 9.2 (3.8-10.6) k/uL RBC 4.75 (3.80-5.40) m/uL Hgb 14.5 (11.4-16.0) gm/dL Hct 45.2 (34.0-46.0) % MCV 95.2 (80.0-100.0) fL MCH 30.6 (25.0-35.0) pg MCHC 32.1 (31.0-37.0) g/dL RDW 12.1 (11.5-15.5) % Plt Count 383 (150-450) k/uL MPV 6.9 Neutrophils % 71 % Lymphocytes % 20 % Monocytes % 3 % Eosinophils % 3 % Basophils % 1 % Neutrophils # 6.6 (1.3-7.7) k/uL Lymphocytes # 1.8 (1.0-4.8) k/uL Monocytes # 0.3 (0-1.0) k/uL Eosinophils # 0.3 (0-0.7) k/uL Basophils # 0.1 (0-0.2) k/uL PT 10.3 (10.0-12.5) sec INR 0.9 (<1.2) APTT 22.4 (22.0-30.0) sec Sodium 140 (137-145) mmol/L Potassium 4.5 (3.5-5.1) mmol/L Chloride 106 (98-107) mmol/L Carbon Dioxide 23 (22-30) mmol/L Anion Gap 11 mmol/L BUN 10 (7-17) mg/dL Creatinine 0.54 (0.52-1.04) mg/dL Est GFR (CKD-EPI)AfAm >90 (>60 ml/min/1.73 sqM) Est GFR (CKD-EPI)NonAf >90 (>60 ml/min/1.73 sqM) Glucose 75 (74-99) mg/dL Calcium 9.1 (8.4-10.2) mg/dL Total Bilirubin 0.4 (0.2-1.3) mg/dL AST 22 (14-36) U/L ALT 14 (4-34) U/L Alkaline Phosphatase 72 (38-126) U/L Creatine Kinase 46 (30-135) U/L Troponin I (0.000-0.034) ng/mL Total Protein 7.8 (6.3-8.2) g/dL Albumin 4.5 (3.5-5.0) g/dL Serum Alcohol 164 mg/dL 07/17/24 Range/Units 22:00 WBC (3.8-10.6) k/uL RBC (3.80-5.40) m/uL Hgb (11.4-16.0) gm/dL Hct (34.0-46.0) % MCV (80.0-100.0) fL MCH (25.0-35.0) pg MCHC (31.0-37.0) g/dL RDW (11.5-15.5) % Plt Count (150-450) k/uL MPV Neutrophils % % Lymphocytes % % Monocytes % % Eosinophils % % Basophils % % Neutrophils # (1.3-7.7) k/uL Lymphocytes # (1.0-4.8) k/uL Monocytes # (0-1.0) k/uL Eosinophils # (0-0.7) k/uL Basophils # (0-0.2) k/uL PT (10.0-12.5) sec INR (<1.2) APTT (22.0-30.0) sec Sodium (137-145) mmol/L Potassium (3.5-5.1) mmol/L Chloride (98-107) mmol/L Carbon Dioxide (22-30) mmol/L Anion Gap mmol/L BUN (7-17) mg/dL Creatinine (0.52-1.04) mg/dL Est GFR (CKD-EPI)AfAm (>60 ml/min/1.73 sqM) Est GFR (CKD-EPI)NonAf (>60 ml/min/1.73 sqM) Glucose (74-99) mg/dL Calcium (8.4-10.2) mg/dL Total Bilirubin (0.2-1.3) mg/dL AST (14-36) U/L ALT (4-34) U/L Alkaline Phosphatase (38-126) U/L Creatine Kinase (30-135) U/L Troponin I <0.012 (0.000-0.034) ng/mL Total Protein (6.3-8.2) g/dL Albumin (3.5-5.0) g/dL Serum Alcohol mg/dL - Medical Decision Making Was pt. sent in by a medical professional or institution (, PA, SENIOR SERVICE AIDE, urgent care, hospital, or usp...) When possible be specific @ -[No] Did you speak to anyone other than the patient for history (EMS, parent, family, police, friend...)? What history was obtained from this source @ -[No] Did you review nursing and triage notes (agree or disagree)? Why? @ -[I reviewed and agree with nursing and triage notes] Were old charts reviewed (outside hosp., previous admission, EMS record, old EKG, old radiological studies, urgent care reports/EKG's, usp records)? Report findings @ -[No old charts were reviewed] Differential Diagnosis (chest pain, altered mental status, abdominal pain women, abdominal pain men, vaginal bleeding, weakness, fever, dyspnea, syncope, head ache, dizziness, GI bleed, back pain, seizure, CVA, palpatations, mental health, musculoskeletal)? @ -[not applicable] EKG interpreted by me (3pts min.). @ -yes and demonstrates sinus rhythm with a rate of 99. MT interval 115. QRS 90. QTc of 405. No acute ST segment elevations or depressions X-rays interpreted by me (1pt min.). @ -[None done] CT interpreted by me (1pt min.). @ -[None done] U/S interpreted by me (1pt. min.). @ -[None done] What testing was considered but not performed or refused? (CT, X-rays, U/S, labs)? Why? @ -[None] What meds were considered but not given or refused? Why? @ -[None] Did you discuss the management of the patient with other professionals (estelle sanchez i.e. , TOMASZ, SENIOR SERVICE AIDE, lab, RT, psych nurse, psych social worker, panel assembler, teacher, aboriginal home school liaison officer, therapeutic case manager)? Give summary @ -[No] Was smoking cessation discussed for >3mins.? @ -[No] Was critical care preformed (if so, how long)? @ -[No] Were there social determinants of health that impacted care today? How? (Homelessness, low income, unemployed, alcoholism, drug addiction, transportation, low edu. Level, literacy, decrease access to med. care, fpc, rehab)? @ -[No] Was there de-escalation of care discussed even if they declined (Discuss DNR or withdrawal of care, Hospice)? DNR status @ -[No] What co-morbidities impacted this encounter? (DM, HTN, Smoking, COPD, CAD, Cancer, CVA, ARF, Chemo, Hep., AIDS, mental health diagnosis, sleep apnea, morbid obesity)? @ -[None] Was patient admitted / discharged? Hospital course, mention meds given and route, prescriptions, significant lab abnormalities, going to OR and other pertinent info. @ -Upon arrival patient seen and evaluated in bed 2. Code thrombolytic is activated. Patient has an NIH of 9. Laboratory studies are conducted. Patient is taken for CT. CT is negative for acute process. I did discuss the case with Dr. Lugo who does recommend TNKase. I did discuss this with the patient. Patient refuses the medication. States that the risks outweigh the benefits. Patient is too concerned about the risks at this time and also does not want to delay her surgery which is impending in a few weeks. She is aware of the benefits. I do call the patient's mother to discuss this. She does support the daughter's decision. Patient has already taken an aspirin today. She does have some improvement in her symptoms and does have more defined speech. Alcohol does return and is 164. Patient will be admitted for neurology consultation. Spoke with Dr. Olmedo for the admission Undiagnosed new problem with uncertain prognosis? @ -[No] Drug Therapy requiring intensive monitoring for toxicity (Heparin, Nitro, Insulin, Cardizem)? @ -[No] Were any procedures done? @ -[No] Diagnosis/symptom? @ -[default] Acute, or Chronic, or Acute on Chronic? @ -[default] Uncomplicated (without systemic symptoms) or Complicated (systemic symptoms)? @ -[default] Side effects of treatment? @ -[No] Exacerbation, Progression, or Severe Exacerbation? @ -[No] Poses a threat to life or bodily function? How? (Chest pain, USA, CT, pneumonia, PE, COPD, DKA, ARF, appy, cholecystitis, CVA, Diverticulitis, Homicidal, Suicidal, threat to staff... and all critical care pts) @ -[No] Past Medical History Past Medical History: Seizure Disorder Additional Past Medical History / Comment(s): gastritis, ovarian cysts, long COVID, 1, TIA (pt states multiple and she doesn't go to ED when they happen.) History of Any Multi-Drug Resistant Organisms: None Reported Past Surgical History: Cholecystectomy Additional Past Surgical History / Comment(s): EGD, uterine wall and ovarian cyst removal Past Anesthesia/Blood Transfusion Reactions: No Reported Reaction Past Psychological History: No Psychological Hx Reported Smoking Status: Never smoker Past Alcohol Use History: Occasional Past Drug Use History: None Reported - Past Family History Mother Additional Family Medical History / Comment(s): TIAs cysts hysterectomy Father Family Medical History: No Reported History Course Vital Signs 07/17/24 07/17/24 07/17/24 21:27 21:30 21:45 Temperature 98.8 F Pulse Rate 112 H 121 H 101 H Respiratory 18 19 18 Rate Blood Pressure 162/119 155/106 149/100 O2 Sat by Pulse 92 L 93 L 97 Oximetry 07/17/24 07/17/24 07/17/24 22:00 22:30 22:59 Temperature Pulse Rate 99 90 90 Respiratory 19 18 17 Rate Blood Pressure 148/102 133/98 125/89 O2 Sat by Pulse 97 97 97 Oximetry 07/17/24 07/17/24 07/18/24 23:14 23:30 00:00 Temperature Pulse Rate 91 86 88 Respiratory 15 17 15 Rate Blood Pressure 130/94 128/87 132/93 O2 Sat by Pulse 97 96 96 Oximetry 07/18/24 07/18/24 01:00 02:00 Temperature Pulse Rate 83 86 Respiratory 15 15 Rate Blood Pressure 129/87 121/82 O2 Sat by Pulse 96 96 Oximetry Disposition Clinical Impression: Expressive aphasia, Cerebrovascular accident (CVA), Alcohol intoxication Disposition: ADMITTED IP TO THIS [facility] Condition: Stable Is patient prescribed a controlled substance at d/c from ED?: No Time of Disposition: 00:15 Decision to Admit Reason: Admit from EC Decision Date: 07/18/24 Decision Time: 00:15
[2024-07-18 02:31] LABS: Appearance,Urine Clear (Clear); Bilirubin,Urine Negative (Negative); Blood,Urine Negative (Negative); Color,Urine Colorless; Glucose,Urine (UA) Negative (Negative); Ketones,Urine Negative (Negative); Leukocyte Esterase,Urine Negative (Negative); Nitrite,Urine Negative (Negative); Protein,Urine Negative (Negative); Specific Gravity,Urine 1.041 (1.001-1.035); Urobilinogen,Urine <2.0 mg/dL (<2.0)
[2024-07-18 02:42] LABS: Amphetamine Screen,Urine Detected (NotDetected); Barbiturate Screen,Urine Not Detected (NotDetected); Benzodiazepines Screen,Urine Not Detected (NotDetected); Cocaine Screen,Urine Not Detected (NotDetected); Methadone Screen, Urine Not Detected (NotDetected); Opiate Screen,Urine Not Detected (NotDetected); Oxycodone Screen, Urine Not Detected (NotDetected); Phencyclidine Screen,Urine Not Detected (NotDetected); Tricyclic Antidepressant,Urine Not Detected (NotDetected); Urn Cannabinoid Scrn Not Detected (NotDetected)
[2024-07-18] MEDS ORDERED: ACETAMINOPHEN TAB 325 MG TAB PO PRN (03:05)
[2024-07-18] MEDS: ONDANSETRON 4 MG/2 ML VIAL IVP PRN (04:18)
[2024-07-18 06:16] VITALS: TEMP 97.9
--- NOTE | 2024-07-18 06:37 | P.HPIM ---
History of Present Illness H&P Date: 07/18/24 History of present illness; Patient is 43-year-old female with past medical history of pulmonary AVM, seizure disorder who presents acute onset aphasia. History somewhat limited due to aphasia. She states that she had sudden onset of symptoms around 9 PM tonight. She started having speech difficulties. She has had multiple TIAs in the past. It is unclear how long the left side upper and lower extremity weakness has been present, possibly for 2 to 3 weeks. She reports to pulmonary AVM history and has planned surgery in a few weeks for this diagnosis, and follows up with [facility]. She does take a full dose aspirin every day and already took it today. She denies any head injuries. Patient does not take any blood thinners. No other alleviating, precipitating modifying factors. P atient reports absence of fever, chest pain, palpitations, dyspnea. Spoke with the ER physician, patient admission was accepted by internal medicine service for treatment. REVIEW OF SYSTEMS: Pertinent positives and negatives noted in HPI. PHYSICAL EXAMINATION: Vitals reviewed GENERAL: Resting comfortably in bed. EYES: PERRL, no scleral injection or icterus. HENT: Normocephalic, atraumatic, hearing grossly intact, moist mucous membranes NECK: No tracheal deviation, full range of motion. CARDIOVASCULAR: S1 and S2 present. No murmurs, rubs, or gallops. PULMONARY: Chest is clear to auscultation, no wheezing, rhonchi, or crackles. ABDOMEN: Soft, nontender, nondistended. No palpable organomegaly. MUSCULOSKELETAL: No apparent joint swelling and deformities. EXTREMITIES: No apparent cyanosis, clubbing. No pedal edema. NEUROLOGICAL: Alert and oriented x 3. Right upper and lower extremity 5 out of 5 strength. Left upper and lower extremity 0 out of 5. Plantar flexion and dorsiflexion 5 out of 5 bilaterally. Slurred speech. CN II through XII intact other than left-sided CN XII deficit. SKIN: No apparent rashes. ER FINDINGS: Labs significant for CBC, coagulation panel, CMP are unremarkable, UA with elevated specific gravity 1.041, urine toxicology positive for amphetamines. Serum alcohol 164. Chest x-ray done independently interpreted showed no acute cardiopulmonary pr ocess. CT head independently interpreted showed no hemorrhage, mass effect or midline shift. CT angiogram head and neck done independently interpreted showed no significant stenosis, aneurysm or thrombus in the intracranial circulation. Assessment and Plan: In summary, patient is 43-year-old female with past medical history of pulmonary AVM, seizure disorder who presents acute onset aphasia. #Acute CVA, possibly due to embolic stroke #Acute expressive aphasia #Pulmonary AVM CT head showed no hemorrhage, mass effect or midline shift. CT angiogram head and neck showed no significant stenosis, aneurysm or thrombus in the intracranial circulation. Lipid panel pending Echocardiogram ordered - Start Aspirin 81 mg qd, clopedogrel 75 mg qd, and lipitor 40 mg qd for 21 days on d/c - Fall precautions - Consult PT and OT for evaluation - NPO until speech evaluation Neurology consulted Chronic Medical Conditions #ADHDhold home medication #Seizures #PCOS Resume home medications DVT ppx: Subq Lovenox 40 meq daily Code status: Full code F: N.p.o. E: Replete as needed N: Heart healthy diet after swallow evaluation Anticipated discharge place: Home Anticipated discharge time: 2 to 3 days Dictation was produced using [employer] dictation software. Please excuse any grammatical, word or spelling errors. I have seen and evaluated the patient today. I Discussed the case with the resident and agree with the resident's findings I edited the assessment and plan as necessary as documented in the resident's note. patient exam and symptoms are inconsistent and improves with distraction. Past Medical History Past Medical History: Seizure Disorder Additional Past Medical History / Comment(s): gastritis, ovarian cysts, long COVID, 1, TIA (pt states multiple and she doesn't go to ED when they happen.) History of Any Multi-Drug Resistant Organisms: None Reported Past Surgical History: Cholecystectomy Additional Past Surgical History / Comment(s): EGD, uterine wall and ovarian cyst removal Past Anesthesia/Blood Transfusion Reactions: No Reported Reaction Past Psychological History: No Psychological Hx Reported Smoking Status: Never smoker Past Alcohol Use History: Occasional Past Drug Use History: None Reported - Past Family History Mother Additional Family Medical History / Comment(s): TIAs cysts hysterectomy Father Family Medical History: No Reported History Medications and Allergies Home Medications Medication Instructions Recorded Confirmed Type Lo Loestrin Fe 1-10 1 tab PO DAILY@0700 04/20/19 11/23/22 History Dextroamphetamine/Amphetamine 15 mg PO DAILY@0700 11/23/22 11/23/22 History [Adderall Xr 15 mg Capsule] Ethosuximide 250 mg PO BID@0800,199911/23/22 11/23/22 History Aspirin 81 mg PO DAILY 30 Days #30 tab 11/24/22 Rx Atorvastatin [Lipitor] 40 mg PO HS 30 Days #30 tab 11/24/22 Rx Allergies Allergy/AdvReac Type Severity Reaction Status Date / Time amoxicillin Allergy Anaphylaxis Verified 06/29/24 21:13 gluten Allergy Unknown Verified 06/29/24 21:13 mupirocin [From Bactroban] Allergy Anaphylaxis Verified 06/29/24 21:13 Physical Exam Vitals: Vital Signs Temp Pulse Resp BP Pulse Ox 07/17/24 23:14 91 15 130/94 97 07/17/24 22:59 90 17 125/89 97 07/17/24 22:30 90 18 133/98 97 07/17/24 22:00 99 19 148/102 97 07/17/24 21:45 101 H 18 149/100 97 07/17/24 21:30 121 H 19 155/106 93 L 07/17/24 21:27 98.8 F 112 H 18 162/119 92 L Intake and Output 07/17/24 07/17/24 07/18/24 14:59 22:59 06:59 Other: Weight 54.431 kg Results CBC & Chem 7: 07/17/24 22:00 07/17/24 22:00
[2024-07-18] MEDS ORDERED: NON FORMULARY DRUG (Dextroamphetamine/Amphetamine [Adderall Xr 15 Mg Capsule] 15 MG Cap.Er PO SCH (07:00)
[2024-07-18 07:34] VITALS: RESP 18
[2024-07-18] MEDS: ASPIRIN 81 MG PO SCH (08:28)
[2024-07-18] MEDS: CLOPIDOGREL 75 MG TAB PO SCH (08:28)
[2024-07-18] MEDS: ENOXAPARIN 40 MG/0.4 ML SYRINGE SQ SCH (08:30)
[2024-07-18] MEDS: ATORVASTATIN 40 MG TAB PO SCH (08:30)
[2024-07-18] MEDS: ETHOSUXIMIDE 250 MG PO SCH (08:31)
[2024-07-18 11:30] VITALS: BP 124/98; PULSE 103
--- NOTE | 2024-07-18 11:32 | P.CNNES ---
History of Present Illness Consult date: 07/18/24 Requesting physician: Margi Suarez Reason for Consult: expressive aphasia, suspect cva History of Present Illness: This is a 43 year-old woman with history of seizure, TIA, pulmonary AVM, ADHD, anxiety and depression who presents to the emergency department since yesterday while at kitchen at 6-7pm she noticed chest pain radiating left shoulder and arm. Then she noticed she had left sided heaviness with speech difficulty. She felt her speech was slow. She states she has history of tia recently in which she had left sided weakness. She is on ASA 325mg daily. She is undergoing a lot of stress dealing with austic child, lost her job due to COVID. She is in the process of seeing someone at [facility] for her Pulmonary AVM. 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 Upon speaking with her nurse, she stated the patient walked to the bathroom and she felt there was effort related weakness. She is on Adderall for ADHD. And she had many hospital visits for different issues in the past. Some of the work-up during this hospital visit consisted of: CBC and chemistry panel are within normal limits. CT head is negative for acute process. I personally reviewed CT head and agree with report. CTA head and neck: Negative for significant stenosis or intracranial aneurysm. Review of Systems As per HPI. Past Medical History Past Medical History: Seizure Disorder Additional Past Medical History / Comment(s): gastritis, ovarian cysts, long COVID, 1, TIA (pt states multiple and she doesn't go to ED when they happen.) History of Any Multi-Drug Resistant Organisms: None Reported Past Surgical History: Cholecystectomy Additional Past Surgical History / Comment(s): EGD, uterine wall and ovarian cyst removal Past Anesthesia/Blood Transfusion Reactions: No Reported Reaction Past Psychological History: No Psychological Hx Reported Smoking Status: Never smoker Past Alcohol Use History: Occasional Past Drug Use History: None Reported - Past Family History Mother Additional Family Medical History / Comment(s): TIAs cysts hysterectomy Father Family Medical History: No Reported History Medications and Allergies Home Medications Medication Instructions Recorded Confirmed Type Lo Loestrin Fe 1-10 1 tab PO DAILY@0700 04/20/19 07/18/24 History Dextroamphetamine/Amphetamine 15 mg PO DAILY@0700 11/23/22 07/18/24 History [Adderall Xr 15 mg Capsule] Ethosuximide 250 mg PO BID@0700,1900 11/23/22 07/18/24 History Aspirin 81 mg PO DAILY@0700 07/18/24 07/18/24 History Folic Acid 1 mg PO DAILY@0700 07/18/24 07/18/24 History Allergies Allergy/AdvReac Type Severity Reaction Status Date / Time amoxicillin Allergy Anaphylaxis Verified 07/18/24 10:18 gluten Allergy Unknown Verified 07/18/24 10:18 mupirocin [From Bactroban] Allergy Anaphylaxis Verified 07/18/24 10:18 Physical Examination - Vital Signs Vital Signs: Vital Signs Temp Pulse Resp BP Pulse Ox 07/18/24 08:27 92 18 137/83 98 07/18/24 07:32 80 18 137/83 98 07/18/24 06:15 97.9 F 86 15 137/83 95 07/18/24 04:00 88 15 123/79 95 07/18/24 02:00 86 15 121/82 96 07/18/24 01:00 83 15 129/87 96 07/18/24 00:00 88 15 132/93 96 07/17/24 23:30 86 17 128/87 96 07/17/24 23:14 91 15 130/94 97 07/17/24 22:59 90 17 125/89 97 07/17/24 22:30 90 18 133/98 97 07/17/24 22:00 99 19 148/102 97 07/17/24 21:45 101 H 18 149/100 97 07/17/24 21:30 121 H 19 155/106 93 L 07/17/24 21:27 98.8 F 112 H 18 162/119 92 L Intake and Output 07/17/24 07/18/24 07/18/24 22:59 06:59 14:59 Other: Weight 54.431 kg GENERAL: The patient is lying in bed and is not in acute distress. NEUROLOGICAL: Higher mental function: The patient is awake, alert, oriented to self, place and time. Patient is following commands. No aphasia but has different quality of voice that fluctuates in pitch and at times is clear. No neglect. Cranial nerves: The pupils are round, equal and reactive to light and accommodation. Visual zelaya are full to confrontation throughout. Extraocular movement is intact no nystagmus is noted. Facial sensation is normal to touch throughout. The facial strength is normal throughout. Hearing is normal bilaterally to hand rub. Tongue is midline and moved [id number] without any difficulty. No dysarthria is noted. Shoulder shrug is normal bilaterally. Motor: The strength is on the left side there is effort related and initially was 3 but with much motivation is 4+. The right side is 5 over 5 throughout. Normal tone and bulk. Cerebellum: Normal finger to nose heel to wen bilaterally. Sensation: Sensation is normal to touch throughout. Reflexes (right/left): 2+ throughout. Plantars are downgoing bilaterally. Results - Laboratory Findings CBC and BMP: 07/17/24 22:00 07/17/24 22:00 Abnormal Lab Findings: Abnormal Labs 07/18/24 02:14 Ur Specific [place] 1.041 H Ur Amphetamines Screen Detected H Assessment and Plan Assessment: This is a 43 y/o woman who presents with chest pain radiating to left arm with speech difficutly and left sided weakness. She has multiple hospital visits. Left hemiparesis and speech difficulty: I feel more functional. On examination she would have fluctuation in speech quality and times is clear and with her weakness on the left side with motivation there is improvement. CT head/CTA head and neck are unremarkable. Chest pain History of TIA (left sided weakness) History of seizure (absence) History of pulmonary AVM History of ADHD Depression Anxiety Plan: I ordered MRI Brain. She is placed on ASA 81mg daily and Plavix 75mg daily (prior to this was on ASA 325mg daily). She is on Lipitor 40mg qhs. 2D echo, lipid panel are ordered and pending PT, OT and DYNAMITE SHOOTER are consulted. Consider psychiatry consultation. Will defer the rest of medical management to primary team and other specialist. For DVT prophylaxis: On Lovenox. The plan is discussed with patient and her nurse. Thank you for the consultation. Time with Patient: Greater than 30
--- NOTE | 2024-07-18 14:29 | P.DS ---
Providers Date of admission: 07/18/24 00:17 Expected date of discharge: 07/18/24 Attending physician: Giancarlo Jade MD Consults: 07/18/24 00:17 Consult Physician Urgent Consulting Provider: Henrik López Consult Reason/Comments: expressive aphasia, suspected cva Do you want consulting provider notified?: Yes Primary care physician: Dragan Boudreaux [facility] Course: Received notification from the emergency department at 1:57 PM that patient left facility AMA. . Patient Condition at Discharge: Undetermined Plan - Discharge Summary New Discharge Prescriptions: No Action Lo Loestrin Fe 1-10 1 tab PO DAILY@0700 Ethosuximide 250 mg PO BID@0700,1900 Dextroamphetamine/Amphetamine [Adderall Xr 15 mg Capsule] 15 mg PO DAILY@0700 Aspirin 81 mg PO DAILY@0700 Folic Acid 1 mg PO DAILY@0700 Discharge Medication List Lo Loestrin Fe 1-10 1 tab PO DAILY@0700 04/20/19 [History] Dextroamphetamine/Amphetamine [Adderall Xr 15 mg Capsule] 15 mg PO DAILY@0700 11/23/22 [History] Ethosuximide 250 mg PO BID@0700,1900 11/23/22 [History] Aspirin 81 mg PO DAILY@0700 07/18/24 [History] Folic Acid 1 mg PO DAILY@0700 07/18/24 [History] Follow up Appointment(s)/Referral(s): Dragan Boudreaux MD [Primary Care Provider] - 1-2 days Discharge Disposition: LEFT AGAINST MEDICAL ADVICE
--- NOTE | 2024-07-18 15:57 | P.PN ---
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 She presented to our facility with a chief complaint of left-sided weakness and acute onset aphasia. Physical exam: Vital signs reviewed and stable. General: Nontoxic, no distress and appears stated age. Derm: Skin warm and dry, normal coloration for ethnicity. Head: Atraumatic, normocephalic and symmetric. Eyes: EOM's intact, no lid lag, and anicteric sclera Mouth: no lip lesions, mucus membranes moist Cardiovascular: regular rate and rhythm with normal S1S2, no murmur, positive posterior tibial pulses bilaterally, and cap refill < 2 seconds. Lungs: Respirations even, regular, and unlabored on room air. Lungs CTA bilaterally, no rhonchi, no rales, no wheezing, and no accessory muscle usage. Abdominal: soft, nontender to palpation, no guarding, no appreciable organomegaly Ext: ROM intact. No gross muscle atrophy, no edema, no contractures Neuro: Speech clear, face symmetrical and CN II-XII grossly intact with no noted focal neuro deficits Psych: Alert and oriented to person, place, time, and situation. Appropriate and pleasant affect. Assessment and plan of care: Left-sided weakness and difficulties with speech, rule out TIA versus CVA History of recurrent TIAs Pulmonary AVM -Neurology following, discussed plan of care with Dr. Espinoza. -MRI brain without contrast -Echocardiogram -NIH stroke scale with neuro checks every 4 hours and as needed -Continue aspirin 81 mg daily, Plavix 75 mg daily, and atorvastatin 40 mg daily. -PT/OT consult -Consult placed to speech and language pathologist -Fall precautions and provide pt with assistance as needed CODE STATUS full code DVT prophylaxis: Lovenox Discussed with: Patient, patient's family at bedside, RN and neurologist Anticipated discharge date: Pending clinical course Anticipated discharge place: Home Patient was seen independently by Nurse Pracitioner. This document was prepared using [employer] dictation software. Please allow for errors in leg man, while rare they do occur. Carlton Maria NP rendered care for this patient independently, reviewed the findings and plan as documented in the note above and agree with plan. I did n ot physically speak with or examine the patient on this date. Objective - Vital Signs Vital signs: Vital Signs Temp 97.9 F 07/18/24 06:15 Pulse 92 07/18/24 08:27 Resp 18 07/18/24 08:27 BP 137/83 07/18/24 08:27 Pulse Ox 98 07/18/24 08:27 FiO2 Intake & Output 07/17/24 07/18/24 07/18/24 18:59 06:59 18:59 Weight 54.431 kg - Labs CBC & Chem 7: 07/17/24 22:00 07/17/24 22:00 Labs: Abnormal Lab Results - Last 24 Hours (Table) 07/18/24 Range/Units 02:14 Ur Specific [place] 1.041 H (1.001-1.035) Ur Amphetamines Screen Detected H (NotDetected)
[2024-07-19] MEDS ORDERED: ASPIRIN 325 MG TAB PO SCH (09:00)
== END 2024-07-18 13:57 | disposition left against medical advice (07) ==
LOC: EC 21:23 → 6NMEDSUR 07-18 00:17 → 3SCARD 07-18 00:29
PROVIDERS: ADMIT Internal Medicine; ATTEND Internal Medicine
DX: R47.01 Aphasia (principal); R53.1 Weakness; G81.94 Hemiplegia, unspecified affecting left nondominant side; F10.129 Alcohol abuse with intoxication, unspecified; G40.A09 Absence epileptic syndrome, not intractable, without status epilepticus; E28.2 Polycystic ovarian syndrome; Y90.6 Blood alcohol level of 120-199 mg/100 ml; Q25.72 Congenital pulmonary arteriovenous malformation; F90.9 Attention-deficit hyperactivity disorder, unspecified type; Z53.29 Procedure and treatment not carried out because of patient's decision for other reasons; Z86.73 Personal history of transient ischemic attack (TIA), and cerebral infarction without residual deficits; F32.A Depression, unspecified; F41.9 Anxiety disorder, unspecified; Z79.82 Long term (current) use of aspirin; Z79.899 Other long term (current) drug therapy
CPT/HCPCS: 96372; 96374; 99285; 36415; 93005; 80053; 82550; 84484; 85025; 85610; 85730; 81003; 81025; 80306; 80320; 71045; 70496; 70450; 70498; G0378; J2405; J1650; Q9967

== ENCOUNTER 2024-12-10 14:09 | Emergency (ER) | payer BC ==
--- NOTE | 2024-12-10 14:47 | ED ---
General Adult HPI - General Chief complaint: Seizure Stated complaint: Seizure Time Seen by Provider: 12/10/24 14:19 Source: patient Mode of arrival: EMS Limitations: no limitations - History of Present Illness Initial comments: Dictation was produced using [employer] dictation software. please excuse any grammatical, word or spelling errors. Chief Complaint: 44-year-old female presents to the emergency department for seizure History of Present Illness: Patient is a 44-year-old female she reports history of seizure disorder takes seizure medications. States that she sees neurologist in [place]. She was diagnosed with a AVM at [facility]. She takes seizure medications daily. Today she allegedly had 2 seizures at home witnessed by family. They were described as absence seizure's. EMS was called patient brought to the ER en route to the emergency department patient had 2 more. 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 Last seizure was 2 weeks ago. States that she gets seizures almost every 2 weeks. Complains of left shoulder pain. The ROS documented in this emergency department record has been reviewed and confirmed by me. Those systems with pertinent positive or negative responses have been documented in the HPI. All other systems are other negative and/or noncontributory. - Related Data Home Medications Medication Instructions Recorded Confirmed Lo Loestrin Fe 1-10 1 tab PO DAILY@0700 04/20/19 07/18/24 Dextroamphetamine/Amphetamine 15 mg PO DAILY@0700 11/23/22 07/18/24 [Adderall Xr 15 mg Capsule] Ethosuximide 250 mg PO BID@0700,1900 11/23/22 07/18/24 Aspirin 81 mg PO DAILY@0700 07/18/24 07/18/24 Folic Acid 1 mg PO DAILY@0700 07/18/24 07/18/24 Allergies Allergy/AdvReac Type Severity Reaction Status Date / Time amoxicillin Allergy Anaphylaxis Verified 12/10/24 14:21 gluten Allergy Unknown Verified 12/10/24 14:21 mupirocin [From Bactroban] Allergy Anaphylaxis Verified 12/10/24 14:21 Review of Systems ROS Statement: Those systems with pertinent positive or pertinent negative responses have been documented in the HPI. ROS Other: All systems not noted in ROS Statement are negative. Past Medical History Past Medical History: Seizure Disorder Additional Past Medical History / Comment(s): gastritis, ovarian cysts, long COVID, 1, TIA (pt states multiple and she doesn't go to ED when they happen.) History of Any Multi-Drug Resistant Organisms: None Reported Past Surgical History: Cholecystectomy Additional Past Surgical History / Comment(s): EGD, uterine wall and ovarian cyst removal Past Anesthesia/Blood Transfusion Reactions: No Reported Reaction Past Psychological History: No Psychological Hx Reported Smoking Status: Never smoker Past Alcohol Use History: Occasional Past Drug Use History: None Reported - Past Family History Mother Additional Family Medical History / Comment(s): TIAs cysts hysterectomy Father Family Medical History: No Reported History General Exam - General Exam Comments Initial Comments: PHYSICAL EXAM: General Impression: Alert and oriented x3, not in acute distress, malaised HEENT: Normocephalic atraumatic, extra-ocular movements intact, pupils equal and reactive to light bilaterally, mucous membranes moist. Cardiovascular: Heart regular rate and rhythm Chest: Able to complete full sentences, no retractions, no tachypnea Abdomen: abdomen soft, non-tender, non-distended, no organomegaly Musculoskeletal: Pulses present and equal in all extremities, no peripheral edema Motor: no focal deficits noted Neurological: CN II-XII grossly intact, no focal motor or sensory deficits noted Skin: Intact with no visualized rashes Psych: Normal affect and mood Limitations: no limitations Course Vital Signs 12/10/24 12/10/24 14:12 16:47 Temperature 97.8 F Pulse Rate 93 87 Respiratory 22 18 Rate Blood Pressure 131/86 123/87 O2 Sat by Pulse 100 100 Oximetry EKG Findings - EKG Comments: EKG Findings:: My EKG interpretation: Ventricular rate 94, sinus rhythm, SC interval 113, QRS 80, QTc 416. No SC prolongation, no QTC prolongation, no ST or T-wave changes noted. Overall, this EKG is unremarkable Medical Decision Making - Medical Decision Making Was pt. sent in by a medical professional or institution (, PA, [employer], urgent ca re, hospital, or fpc...) When possible be specific @ -No Did you speak to anyone other than the patient for history (EMS, parent, family, police, friend...)? What history was obtained from this source @ -Family as described above in EMS as described above Did you review nursing and triage notes (agree or disagree)? Why? @ -I reviewed and agree with nursing and triage notes Were old charts reviewed (outside hosp., previous admission, EMS record, old EKG, old radiological studies, urgent care reports/EKG's, fpc records)? Report findings @ -No old charts were reviewed Differential Diagnosis (chest pain, altered mental status, abdominal pain women, abdominal pain men, vaginal bleeding, musculoskeletal, weakness, fever, dyspnea, syncope, headache, dizziness, GI bleed, back pain, seizure, CVA, palpatations, mental health)? @ -Differential Seizure: Recurrent seizure disorder, febrile seizure, alcohol withdrawal, stimulants, meningitis, encephalitis, intercranial hemorrhage, intracranial tumor, stroke, eclampsia, thyrotoxicosis, hypocalcemia, hyponatremia, hypernatremia, hypomagnesemia, psychogenic, this is not meant to be an all-inclusive list. EKG interpreted by me (3pts min.). @ -None done X-rays interpreted by me (1pt min.). @ -X-ray of the shoulder shows no acute processes CT interpreted by me (1pt min.). @ -None done U/S interpreted by me (1pt. min.). @ -None done What testing was considered but not performed or refused? (CT, X-rays, U/S, labs)? Why? @ -None What meds were considered but not given or refused? Why? @ -None Was smoking cessation discussed for >3mins.? @ -No Were there social determinants of health that impacted care today? How? (Homelessness, low income, unemployed, alcoholism, drug addiction, transportation, low edu. Level, literacy, decrease access to med. care, fdc, rehab)? @ -No Was there de-escalation of care discussed even if they declined (Discuss DNR or withdrawal of care, Hospice)? DNR status @ -No What co-morbidities impacted this encounter? (DM, HTN, Smoking, COPD, CAD, Cancer, CVA, ARF, Chemo, Hep., AIDS, mental health diagnosis, sleep apnea, morbid obesity)? @ -Absence seizure disorder Was patient admitted / discharged? Hospital course, mention meds given and route, prescriptions, significant lab abnormalities, going to OR and other pertinent info. @ -Patient is a 44-year-old female history of absence seizure's. States she has had multiple seizures today. According the patient she had 4 seizures today. Has had increased uptake in her seizures. Patient states that she has numbness and weakness in her left arm and she typically gets Demario's paralysis after the seizures. She follows up with neurologist, Dr. Duval Laboratory evaluation is unremarkable. Imaging studies are negative. Disposition options were discussed with patient she requested transfer to [facility] where her neurologist is based Did you discuss the management of the patient with other professionals (prof everett i.e. , PA, [employer], lab, RT, psych nurse, child protective services social worker, education and training coordinator, teacher, special loan officer, community case manager)? Give summary @ -Spoke with [facility] transfer line Was critical care preformed (if so, how long)? @ -No Undiagnosed new problem with uncertain prognosis? @ -No Drug Therapy requiring intensive monitoring for toxicity (Heparin, Nitro, Insulin, Cardizem)? @ -No Were any procedures done? @ -No Diagnosis/symptom? Acute, or Chronic, or Acute on Chronic? Uncomplicated (without systemic symptoms) or Complicated (systemic symptoms)? @ -Seizure Side effects of treatment? @ -No Exacerbation, Progression, or Severe Exacerbation? @ -No Poses a threat to life or bodily function? How? (Chest pain, [place], [place], pneumonia, PE, COPD, DKA, ARF, appy, cholecystitis, CVA, Diverticulitis, Homicidal, Suicidal, threat to staff... and all critical care pts) @ -yes - Lab Data Result diagrams: 12/10/24 14:38 12/10/24 14:38 Lab Results 12/10/24 12/10/24 Range/Units 14:38 14:38 WBC 6.03 (4.50-10.00) 10*3/uL RBC 4.39 (4.10-5.20) 10*6/uL Hgb 13.8 (12.0-15.0) g/dL Hct 40.4 (37.2-46.3) % MCV 92.0 (80.0-97.0) fL MCH 31.4 (27.0-32.0) pg MCHC 34.2 (32.0-37.0) g/dL Plt Count 295 (140-440) 10*3/uL MPV 9.7 (9.5-12.2) fL Immature Gran % (Auto) 0.2 % Neutrophils % 65.5 % Lymphocytes % 25.4 % Monocytes % 6.5 % Eosinophils % 1.2 % Basophils % 1.2 % Immature Gran # 0.01 (0.00-0.04) 10*3/uL Neutrophils # 3.96 (1.80-7.70) 10*3/uL Lymphocytes # 1.53 (0.90-5.00) 10*3/uL Monocytes # 0.39 (0.20-1.00) 10*3/uL Eosinophils # 0.07 (0.04-0.35) 10*3/uL Basophils # 0.07 (0.00-0.10) 10*3/uL Sodium 137 (137-145) mmol/L Potassium 4.2 (3.5-5.1) mmol/L Chloride 107 (98-107) mmol/L Carbon Dioxide 20 L (22-30) mmol/L Anion Gap 10 mmol/L BUN 5 L (7-17) mg/dL Creatinine 0.47 L (0.52-1.04) mg/dL Est GFR (CKD-EPI)AfAm >90 (>60 ml/min/1.73 sqM) Est GFR (CKD-EPI)NonAf >90 (>60 ml/min/1.73 sqM) Glucose 101 H (74-99) mg/dL Calcium 8.9 (8.4-10.2) mg/dL Disposition Clinical Impression: Status epilepticus Disposition: OTHER INSTITUTION NOT DEFINED Condition: Fair Instructions (If sedation given, give patient instructions): Seizure/Epilepsy Discharge Instructions & Follow-Up Referrals: Dragan Boudreaux MD [Primary Care Provider] - 1-2 days Time of Disposition: 17:36 - Out of Hospital Transfer - Req. Specs Out of Hospital Transfer - Requested Specifics: Other Emergency Center ([facility])
[2024-12-10] MEDS: LORazepam 1 MG/0.5 ML VIAL IV STA (14:48)
[2024-12-10 14:59] LABS: Basophils # (A) 0.07 10*3/uL (0.00-0.10); Basophils % (A) 1.2 %; Eosinophils # (A) 0.07 10*3/uL (0.04-0.35); Eosinophils % (A) 1.2 %; HCT 40.4 % (37.2-46.3); HGB 13.8 g/dL (12.0-15.0); Lymphocytes # (A) 1.53 10*3/uL (0.90-5.00); Lymphocytes % (A) 25.4 %; MCH 31.4 pg (27.0-32.0); MCHC 34.2 g/dL (32.0-37.0); MCV 92.0 fL (80.0-97.0); Monocytes # (A) 0.39 10*3/uL (0.20-1.00); Monocytes % (A) 6.5 %; Neutrophils # (A) 3.96 10*3/uL (1.80-7.70); Neutrophils % (A) 65.5 %; Platelet Count 295 10*3/uL (140-440); RBC 4.39 10*6/uL (4.10-5.20); RDW 11.6 % (11.5-14.5); WBC 6.03 10*3/uL (4.50-10.00)
[2024-12-10 15:12] LABS: African American GFR (CKD) >90 (>60 ml/min/1.73 sqM); Anion Gap 10 mmol/L; Blood Urea Nitrogen 5 mg/dL (7-17); Calcium 8.9 mg/dL (8.4-10.2); Carbon Dioxide 20 mmol/L (22-30); Chloride 107 mmol/L (98-107); Glucose 101 mg/dL (74-99); Non-African American GFR(CKD) >90 (>60 ml/min/1.73 sqM); Potassium 4.2 mmol/L (3.5-5.1); Sodium 137 mmol/L (137-145)
--- NOTE | 2024-12-10 16:15 | XR ---
EXAMINATION TYPE: XR shoulder complete LT DATE OF EXAM: 12/10/2024 4:12 PM COMPARISON: None. CLINICAL INDICATION: Female, 44 years old with history of shoulder pain after seizure, pain TECHNIQUE: XR shoulder complete LT views were obtained FINDINGS: There is no acute fracture/dislocation evident. The acromioclavicular and glenohumeral joint spaces appear within normal limits. The visualized ribs are intact and unremarkable. IMPRESSION: There is no acute fracture or dislocation. [facility], , 12/10/2024 4:12 PM
[2024-12-10 18:09] VITALS: BP 125/92; PULSE 82; RESP 18; TEMP 98.4
== END 2024-12-10 18:38 | disposition other institution (70) ==
LOC: EC 14:09
DX: G40.A01 Absence epileptic syndrome, not intractable, with status epilepticus (principal); Z88.0 Allergy status to penicillin; Z88.8 Allergy status to other drugs, medicaments and biological substances
CPT/HCPCS: 36415; 93005; 80048; 85025; 73030; 99285; 96374; J2060